=== PATIENT | male | born 1955 | race Caucasian/White ===

== ENCOUNTER 2016-08-10 12:20 | Inpatient (IN) | payer MEDICARE, MEDICAID ==
[~2016-08-10] VITALS: Ht 177.8 cm; Wt 93.0 kg
[~2016-08-10 12:20] MED LIST: CLON.2 PO; DULO20CA30 PO; METO25 PO; NALT50 PO; OLAN10TA22 PO; OLAN10TA6 PO; PHEN100C23 PO; PHENY100 PO
[2016-08-10] MEDS ORDERED: HALOPERIDOL LACTATE 5 MG/ML VIAL IM ONE ×2 (12:25→14:45)
[2016-08-10] MEDS ORDERED: DiphenhydrAMINE HCL 50 MG/ML VIAL IM ONE ×2 (12:25→17:45)
[2016-08-10] MEDS ORDERED: LORazepam 2 MG/ML VIAL IM ONE ×3 (12:25→17:45)
[2016-08-10] MEDS ORDERED: VENL-193 PO (12:28)
[2016-08-10] MEDS ORDERED: TRIH5TAB2 PO (12:28)
[2016-08-10] MEDS ORDERED: LEVO50 PO (12:28)
[2016-08-10] MEDS ORDERED: DIAZ10I IM (12:28)
[2016-08-10] MEDS ORDERED: CLON.2 PO (12:28)
[2016-08-10] MEDS ORDERED: DIAZ10 PO (12:54)
[2016-08-10 14:32] LABS: BASOPHILS % (AUTO) 0.3 % (0.0-2.0); EOSINOPHILS % (AUTO) 0.2 % (1.0-6.0); HEMATOCRIT 40.9 % (41-53); HEMOGLOBIN 13.2 g/dL (13.5-17.5); LYMPHOCYTES # (AUTO) 1.5 K/uL (1.0-4.8); LYMPHOCYTES % (AUTO) 10.6 % (22.0-44.0); MEAN CORPUSCULAR HEMOGLOBIN 28.8 pg (26.0-34.0); MEAN CORPUSCULAR HGB CONC 32.3 G/dL (31.0-37.0); MEAN CORPUSCULAR VOLUME 89 fL (80-100); MONOCYTES # (AUTO) 1.1 K/uL (0.1-1.0); MONOCYTES % (AUTO) 7.7 % (2.0-9.0); NEUTROPHILS # (AUTO) 11.5 K/uL (1.8-7.7); NEUTROPHILS % (AUTO) 81.2 % (40.0-70.0); PLATELET COUNT (AUTO) 214 K/uL (150-450); RED BLOOD CELL COUNT(AUTO) 4.58 MIL/uL (4.50-5.90); RED CELL DISTRIBUTION WIDTH 14.2 % (11.5-14.5); WHITE BLOOD COUNT (AUTO) 14.2 K/uL (4.5-11.0)
[2016-08-10 14:40] LABS: ANION GAP 10 mmol/L (8-16); CALCIUM, TOTAL 9.2 mg/dL (8.8-10.5); CARBON DIOXIDE 28 mmol/L (22-29); CHLORIDE 100 mmol/L (98-107); CREATININE 1.18 mg/dL (0.60-1.30); GLOMERULAR FILTR. RATE CALC > 60 mL/min (>60); SODIUM SERUM 138 mmol/L (136-145); UREA NITROGEN, BLOOD 14 mg/dL (7-18)
[2016-08-10 14:46] LABS: ALANINE AMINOTRANSFERASE 34 U/L (12-78); ALBUMIN 4.1 g/dL (3.4-5.0); ASPARTATE AMINOTRANSFERASE 15 U/L (15-37); BILIRUBIN,TOTAL 0.4 mg/dL (0.1-1.0); TOTAL PROTEIN, SERUM 7.7 g/dL (6.4-8.2)
[2016-08-10 15:20] LABS: APPEARANCE,URINE CLEAR (CLEAR); GLUCOSE, URINE (UA) NEGATIVE (NEGATIVE); KETONES,URINE NEGATIVE (NEGATIVE); LEUKOCYTE ESTERASE ,URINE NEGATIVE (NEGATIVE); OCCULT BLOOD,URINE TRACE (NEGATIVE); PROTEIN,URINE NEGATIVE (NEGATIVE)
[2016-08-10 15:25] LABS: ADD UA MICROSCOPIC YES
[2016-08-10 15:49] LABS: SQUAMOUS EPITHELIAL CELL,UR Rare /LPF (None Seen)
[2016-08-10 15:50] LABS: RBC,URINE 0-2 /HPF (0-2); WBC,URINE 0-2 /HPF (0-5)
[2016-08-10] MEDS ORDERED: LOPERAMIDE HCL 2 MG CAPSULE PO PRN (16:30)
[2016-08-10] MEDS ORDERED: PROMETHAZINE HCL 25 MG TABLET PO PRN (16:30)
[2016-08-10] MEDS ORDERED: MAG HYDROX/AL HYDROX/SIMETH ES 30 ML SUSPENSION UDCUP PO PRN (16:30)
[2016-08-10] MEDS ORDERED: MAGNESIUM HYDROXIDE SUSPENSION 30 ML UDCUP PO PRN (16:30)
[2016-08-10] MEDS ORDERED: GuaiFENesin/D-METHORPHAN [SUGAR-FREE] 200-20MG/10 ML SYRUP UDCUP PO PRN (16:30)
[2016-08-10] MEDS ORDERED: -PHARMACY VACCINE NOTE- MISC ONE ×2 (19:30)
[2016-08-10 19:36] VITALS: BP 118/65
[2016-08-10] MEDS: PHENYTOIN SODIUM 100 MG ER CAPSULE PO SCH (20:18)
[2016-08-10] MEDS: THIAMINE HCL 100 MG TABLET PO SCH (20:18)
[2016-08-10] MEDS: OLANZapine 5 MG RAPDIS TABLET PO SCH (20:18)
[2016-08-10 20:21] LABS: GLUCOSE,POINT OF CARE 180 MG/DL (70-110)
[2016-08-10] MEDS ORDERED: GLUCAGON,HUMAN RECOMBINANT 1 MG VIAL IM PRN (21:45)
[2016-08-11] MEDS: LORazepam 2 MG TABLET PO PRN ×3 (04:19→15:42)
[2016-08-11 04:20] VITALS: BP 129/71
[2016-08-11 06:12] LABS: GLUCOSE,POINT OF CARE 146 MG/DL (70-110)
[2016-08-11] MEDS: LEVOTHYROXINE SODIUM 50 MCG TABLET PO SCH (06:23)
[2016-08-11] MEDS: INSULIN ASPART 100 UNITS/ML SQ PRN ×3 (06:24→20:44)
[2016-08-11] MEDS: OLANZapine 5 MG RAPDIS TABLET PO PRN ×2 (06:37→16:19)
[2016-08-11] MEDS: FOLIC ACID 1 MG TABLET PO SCH (07:55)
[2016-08-11] MEDS: NALTREXONE HCL 50 MG TABLET PO SCH (07:55)
[2016-08-11] MEDS: THIAMINE HCL 100 MG TABLET PO SCH ×2 (07:55→16:19)
[2016-08-11] MEDS: METOPROLOL TARTRATE 25 MG TABLET PO SCH (07:55)
[2016-08-11] MEDS: MULTIVITAMINS WITH MINERALS, THERAPEUTIC TABLET PO SCH (07:55)
[2016-08-11] MEDS: CloNIDine HCL 0.1 MG TABLET PO SCH ×2 (07:57→16:19)
[2016-08-11 08:25] LABS: BASOPHILS % (AUTO) 0.4 % (0.0-2.0); EOSINOPHILS % (AUTO) 1.1 % (1.0-6.0); HEMOGLOBIN 13.2 g/dL (13.5-17.5); LYMPHOCYTES # (AUTO) 1.5 K/uL (1.0-4.8); LYMPHOCYTES % (AUTO) 18.5 % (22.0-44.0); MEAN CORPUSCULAR HEMOGLOBIN 28.8 pg (26.0-34.0); MEAN CORPUSCULAR HGB CONC 32.2 G/dL (31.0-37.0); MEAN CORPUSCULAR VOLUME 90 fL (80-100); MONOCYTES # (AUTO) 0.9 K/uL (0.1-1.0); MONOCYTES % (AUTO) 11.2 % (2.0-9.0); NEUTROPHILS # (AUTO) 5.7 K/uL (1.8-7.7); NEUTROPHILS % (AUTO) 68.8 % (40.0-70.0); PLATELET COUNT (AUTO) 187 K/uL (150-450); RED BLOOD CELL COUNT(AUTO) 4.58 MIL/uL (4.50-5.90); RED CELL DISTRIBUTION WIDTH 14.3 % (11.5-14.5); WHITE BLOOD COUNT (AUTO) 8.3 K/uL (4.5-11.0)
[2016-08-11 08:37] LABS: HEMOGLOBIN A1C 7.5 % (4.5-6.2)
[2016-08-11 08:46] VITALS: BP 122/76
[2016-08-11 09:43] LABS: ALANINE AMINOTRANSFERASE 31 U/L (12-78); ANION GAP 8 mmol/L (8-16); ASPARTATE AMINOTRANSFERASE 34 U/L (15-37); BILIRUBIN,TOTAL 0.8 mg/dL (0.1-1.0); CALCIUM, TOTAL 9.1 mg/dL (8.8-10.5); CARBON DIOXIDE 29 mmol/L (22-29); CHLORIDE 101 mmol/L (98-107); CREATININE 1.11 mg/dL (0.60-1.30); GLOMERULAR FILTR. RATE CALC > 60 mL/min (>60); POTASSIUM 3.7 mmol/L (3.5-5.1); SODIUM SERUM 138 mmol/L (136-145); THYROID STIMULATING HORMONE 0.01 uIU/mL (0.36-3.74)
[2016-08-11 09:59] LABS: CHOL/HDL RATIO 4.1 (4.2-7.3); TOTAL PROTEIN, SERUM 7.6 g/dL (6.4-8.2); UREA NITROGEN, BLOOD 12 mg/dL (7-18)
[2016-08-11] MEDS: HydrOXYzine PAMOATE 50 MG CAPSULE PO PRN ×2 (10:30→18:45)
[2016-08-11] MEDS ORDERED: DiphenhydrAMINE HCL 50 MG/ML VIAL ONE (11:41)
[2016-08-11] MEDS ORDERED: LORazepam 2 MG/ML VIAL ONE (11:41)
[2016-08-11] MEDS ORDERED: HALOPERIDOL LACTATE 5 MG/ML VIAL ONE (11:42)
[2016-08-11] MEDS ORDERED: FluPHENAZine HCL 2.5 MG/ML INJ IM ONE ×3 (11:43→11:48)
[2016-08-11] MEDS ORDERED: DiphenhydrAMINE HCL 50 MG/ML VIAL IM ONE (11:45)
[2016-08-11] MEDS ORDERED: LORazepam 2 MG/ML VIAL IM ONE (11:45)
[2016-08-11 16:18] VITALS: BP 125/70
[2016-08-11 17:57] LABS: GLUCOSE,POINT OF CARE 227 MG/DL (70-110)
[2016-08-11] MEDS: DIVALPROEX SODIUM 500 MG ER TABLET PO SCH (20:24)
[2016-08-11] MEDS: OLANZapine 5 MG RAPDIS TABLET PO SCH (20:24)
[2016-08-11] MEDS: PHENYTOIN SODIUM 100 MG ER CAPSULE PO SCH (20:24)
[2016-08-11 20:42] LABS: GLUCOSE,POINT OF CARE 162 MG/DL (70-110)
[2016-08-11] MEDS ORDERED: PHENYTOIN SODIUM 100 MG ER CAPSULE PO SCH (21:00)
[2016-08-11] MEDS: ZOLPIDEM TARTRATE 10 MG TABLET PO PRN (21:42)
[2016-08-12 00:20] VITALS: BP 126/75
[2016-08-12] MEDS: LORazepam 2 MG TABLET PO PRN ×4 (00:25→16:25)
[2016-08-12] MEDS: OLANZapine 5 MG RAPDIS TABLET PO PRN ×4 (00:25→16:26)
[2016-08-12] MEDS: LEVOTHYROXINE SODIUM 50 MCG TABLET PO SCH (06:49)
[2016-08-12] MEDS: INSULIN ASPART 100 UNITS/ML SQ PRN ×2 (06:52→16:30)
[2016-08-12 07:47] LABS: GLUCOSE,POINT OF CARE 165 MG/DL (70-110)
[2016-08-12 08:46] VITALS: BP 122/68
[2016-08-12] MEDS: CloNIDine HCL 0.1 MG TABLET PO SCH ×2 (09:47→16:25)
[2016-08-12] MEDS: MULTIVITAMINS WITH MINERALS, THERAPEUTIC TABLET PO SCH (09:48)
[2016-08-12] MEDS: THIAMINE HCL 100 MG TABLET PO SCH ×2 (09:48→16:25)
[2016-08-12] MEDS: FOLIC ACID 1 MG TABLET PO SCH (09:48)
[2016-08-12] MEDS: METOPROLOL TARTRATE 25 MG TABLET PO SCH (09:48)
[2016-08-12] MEDS: NALTREXONE HCL 50 MG TABLET PO SCH (09:48)
[2016-08-12] MEDS: NICOTINE 14 MG/24 HOUR PATCH TD SCH (10:32)
[2016-08-12] MEDS ORDERED: DiphenhydrAMINE HCL 50 MG/ML VIAL ONE (11:08)
[2016-08-12] MEDS ORDERED: LORazepam 2 MG/ML VIAL ONE (11:08)
[2016-08-12] MEDS ORDERED: FluPHENAZine HCL 2.5 MG/ML INJ IM ONE ×3 (11:09→13:00)
[2016-08-12] MEDS ORDERED: DiphenhydrAMINE HCL 50 MG/ML VIAL IM ONE ×2 (11:15→13:00)
[2016-08-12] MEDS ORDERED: LORazepam 2 MG/ML VIAL IM ONE ×2 (11:15→13:00)
[2016-08-12 16:00] VITALS: BP 136/71
[2016-08-12 17:17] LABS: GLUCOSE COMMENT 1 Received Meds; GLUCOSE,POINT OF CARE 159 MG/DL (70-110)
[2016-08-12] MEDS ORDERED: DIVA500T52 PO (18:02)
[2016-08-12] MEDS ORDERED: OLAN10TA22 PO (18:02)
[2016-08-12] MEDS ORDERED: NALT50 PO (18:02)
[2016-08-12] MEDS: DIVALPROEX SODIUM 500 MG ER TABLET PO SCH (20:20)
[2016-08-12] MEDS: ZOLPIDEM TARTRATE 10 MG TABLET PO PRN (20:20)
[2016-08-12] MEDS ORDERED: PHENYTOIN SODIUM 100 MG ER CAPSULE PO SCH (21:00)
[2016-08-12] MEDS ORDERED: OLANZapine 10 MG RAPDIS TABLET PO SCH (21:00)
[2016-08-13] MEDS ORDERED: LORazepam 2 MG/ML VIAL IM ONE ×2 (01:30→11:00)
[2016-08-13] MEDS ORDERED: DiphenhydrAMINE HCL 50 MG/ML VIAL IM ONE ×2 (01:30→11:00)
[2016-08-13] MEDS ORDERED: FluPHENAZine HCL 2.5 MG/ML INJ IM ONE ×3 (01:30→11:00)
[2016-08-13] MEDS: LEVOTHYROXINE SODIUM 50 MCG TABLET PO SCH (06:28)
[2016-08-13] MEDS: INSULIN ASPART 100 UNITS/ML SQ PRN (06:30)
[2016-08-13 06:32] LABS: GLUCOSE,POINT OF CARE 156 MG/DL (70-110)
[2016-08-13 06:34] VITALS: BP 144/86
[2016-08-13 08:41] VITALS: BP 131/71
[2016-08-13] MEDS: NICOTINE 14 MG/24 HOUR PATCH TD SCH (09:08)
[2016-08-13] MEDS: OLANZapine 5 MG RAPDIS TABLET PO PRN (09:08)
[2016-08-13] MEDS: NALTREXONE HCL 50 MG TABLET PO SCH (09:09)
[2016-08-13] MEDS: CloNIDine HCL 0.1 MG TABLET PO SCH ×2 (09:09→16:46)
[2016-08-13] MEDS: THIAMINE HCL 100 MG TABLET PO SCH ×2 (09:09→16:46)
[2016-08-13] MEDS: MULTIVITAMINS WITH MINERALS, THERAPEUTIC TABLET PO SCH (09:09)
[2016-08-13] MEDS: LORazepam 2 MG TABLET PO PRN (09:09)
[2016-08-13] MEDS: FOLIC ACID 1 MG TABLET PO SCH (09:10)
[2016-08-13] MEDS: METOPROLOL TARTRATE 25 MG TABLET PO SCH (09:13)
[2016-08-13] MEDS: HydrOXYzine PAMOATE 50 MG CAPSULE PO PRN (14:57)
[2016-08-13 16:00] VITALS: BP 125/72
[2016-08-13 16:57] LABS: GLUCOSE,POINT OF CARE 136 MG/DL (70-110)
[2016-08-13] MEDS: DIVALPROEX SODIUM 500 MG ER TABLET PO SCH (20:46)
[2016-08-13] MEDS: PHENYTOIN SODIUM 100 MG ER CAPSULE PO SCH (20:47)
[2016-08-13] MEDS: OLANZapine 5 MG RAPDIS TABLET PO SCH (20:48)
[2016-08-13] MEDS: ZOLPIDEM TARTRATE 10 MG TABLET PO PRN (21:06)
[2016-08-14 06:57] LABS: GLUCOSE,POINT OF CARE 135 MG/DL (70-110)
[2016-08-14] MEDS: OLANZapine 5 MG RAPDIS TABLET PO PRN ×2 (07:07→14:30)
[2016-08-14] MEDS: LORazepam 2 MG TABLET PO PRN ×2 (07:07→14:30)
[2016-08-14] MEDS: LEVOTHYROXINE SODIUM 50 MCG TABLET PO SCH (07:07)
[2016-08-14 07:38] VITALS: BP 122/78
[2016-08-14 08:11] VITALS: BP 140/83
[2016-08-14] MEDS: NICOTINE 14 MG/24 HOUR PATCH TD SCH (08:20)
[2016-08-14] MEDS: FOLIC ACID 1 MG TABLET PO SCH (08:20)
[2016-08-14] MEDS: CloNIDine HCL 0.1 MG TABLET PO SCH ×2 (08:20→17:01)
[2016-08-14] MEDS: MULTIVITAMINS WITH MINERALS, THERAPEUTIC TABLET PO SCH (08:20)
[2016-08-14] MEDS: METOPROLOL TARTRATE 25 MG TABLET PO SCH (08:21)
[2016-08-14] MEDS: THIAMINE HCL 100 MG TABLET PO SCH ×2 (08:21→17:01)
[2016-08-14] MEDS: NALTREXONE HCL 50 MG TABLET PO SCH ×2 (08:21→08:32)
[2016-08-14] MEDS: ACETAMINOPHEN 325 MG TABLET PO PRN ×2 (12:03→13:25)
[2016-08-14 16:09] VITALS: BP 115/66
[2016-08-14] MEDS: DIVALPROEX SODIUM 500 MG ER TABLET PO SCH (20:38)
[2016-08-14] MEDS: PHENYTOIN SODIUM 100 MG ER CAPSULE PO SCH (20:38)
[2016-08-14] MEDS: OLANZapine 5 MG RAPDIS TABLET PO SCH (20:38)
[2016-08-15 03:55] VITALS: BP 127/79
[2016-08-15] MEDS: LEVOTHYROXINE SODIUM 50 MCG TABLET PO SCH (06:34)
[2016-08-15 06:37] LABS: GLUCOSE,POINT OF CARE 115 MG/DL (70-110)
[2016-08-15 08:41] VITALS: BP 136/75
[2016-08-15] MEDS: FOLIC ACID 1 MG TABLET PO SCH (08:47)
[2016-08-15] MEDS: METOPROLOL TARTRATE 25 MG TABLET PO SCH (08:47)
[2016-08-15] MEDS: NALTREXONE HCL 50 MG TABLET PO SCH (08:48)
[2016-08-15] MEDS: LORazepam 2 MG TABLET PO PRN ×2 (08:48→14:53)
[2016-08-15] MEDS: MULTIVITAMINS WITH MINERALS, THERAPEUTIC TABLET PO SCH (08:48)
[2016-08-15] MEDS: CloNIDine HCL 0.1 MG TABLET PO SCH ×2 (08:48→16:03)
[2016-08-15] MEDS: THIAMINE HCL 100 MG TABLET PO SCH ×2 (08:49→16:03)
[2016-08-15] MEDS: NICOTINE 14 MG/24 HOUR PATCH TD SCH (08:49)
[2016-08-15] MEDS: NICOTINE 21 MG/24 HOUR PATCH TD SCH (09:48)
[2016-08-15 11:06] LABS: GLUCOSE,POINT OF CARE 146 MG/DL (70-110)
[2016-08-15] MEDS: INSULIN ASPART 100 UNITS/ML SQ PRN ×2 (11:13→16:19)
[2016-08-15 16:13] VITALS: BP 138/78
[2016-08-15 16:17] LABS: GLUCOSE COMMENT 1 Received Meds; GLUCOSE,POINT OF CARE 158 MG/DL (70-110)
[2016-08-15] MEDS: DIVALPROEX SODIUM 500 MG ER TABLET PO SCH (20:29)
[2016-08-15] MEDS: OLANZapine 5 MG RAPDIS TABLET PO SCH (20:29)
[2016-08-15] MEDS: PHENYTOIN SODIUM 100 MG ER CAPSULE PO SCH (20:35)
[2016-08-15] MEDS: ZOLPIDEM TARTRATE 10 MG TABLET PO PRN (21:30)
[2016-08-16] MEDS: LEVOTHYROXINE SODIUM 50 MCG TABLET PO SCH (06:11)
[2016-08-16 06:13] LABS: GLUCOSE,POINT OF CARE 99 MG/DL (70-110)
[2016-08-16 06:17] VITALS: BP 140/89
[2016-08-16] MEDS: NALTREXONE HCL 50 MG TABLET PO SCH (08:36)
[2016-08-16] MEDS: LORazepam 2 MG TABLET PO PRN ×2 (08:36→13:07)
[2016-08-16] MEDS: MULTIVITAMINS WITH MINERALS, THERAPEUTIC TABLET PO SCH (08:36)
[2016-08-16] MEDS: DIVALPROEX SODIUM 500 MG ER TABLET PO SCH (08:36)
[2016-08-16] MEDS: THIAMINE HCL 100 MG TABLET PO SCH ×2 (08:36→16:29)
[2016-08-16] MEDS: CloNIDine HCL 0.1 MG TABLET PO SCH ×2 (08:36→16:29)
[2016-08-16] MEDS: METOPROLOL TARTRATE 25 MG TABLET PO SCH (08:36)
[2016-08-16] MEDS: FOLIC ACID 1 MG TABLET PO SCH (08:36)
[2016-08-16] MEDS: NICOTINE 21 MG/24 HOUR PATCH TD SCH (08:37)
[2016-08-16 08:49] VITALS: BP 133/80
[2016-08-16] MEDS: HYDROCORTISONE 2.5% 30 GM CREAM TP SCH ×2 (10:39→16:29)
[2016-08-16 11:12] LABS: GLUCOSE,POINT OF CARE 143 MG/DL (70-110)
[2016-08-16] MEDS: INSULIN ASPART 100 UNITS/ML SQ PRN (11:14)
[2016-08-16] MEDS: OLANZapine 5 MG RAPDIS TABLET PO PRN (13:07)
[2016-08-16 16:17] LABS: GLUCOSE,POINT OF CARE 136 MG/DL (70-110)
[2016-08-16 16:33] VITALS: BP 137/75
[2016-08-16] MEDS: PHENYTOIN SODIUM 100 MG ER CAPSULE PO SCH (20:40)
[2016-08-16] MEDS: OLANZapine 5 MG RAPDIS TABLET PO SCH (20:40)
[2016-08-16 20:42] LABS: GLUCOSE,POINT OF CARE 135 MG/DL (70-110)
[2016-08-17 05:32] VITALS: BP 126/67
[2016-08-17 06:02] LABS: GLUCOSE,POINT OF CARE 139 MG/DL (70-110)
[2016-08-17] MEDS: LEVOTHYROXINE SODIUM 50 MCG TABLET PO SCH (06:05)
[2016-08-17] MEDS: NICOTINE 21 MG/24 HOUR PATCH TD SCH (08:27)
[2016-08-17] MEDS: THIAMINE HCL 100 MG TABLET PO SCH ×2 (08:27→16:41)
[2016-08-17] MEDS: FOLIC ACID 1 MG TABLET PO SCH (08:27)
[2016-08-17] MEDS: METOPROLOL TARTRATE 25 MG TABLET PO SCH (08:27)
[2016-08-17] MEDS: MULTIVITAMINS WITH MINERALS, THERAPEUTIC TABLET PO SCH (08:28)
[2016-08-17] MEDS: CloNIDine HCL 0.1 MG TABLET PO SCH ×2 (08:28→16:41)
[2016-08-17] MEDS: NALTREXONE HCL 50 MG TABLET PO SCH (08:28)
[2016-08-17] MEDS: LORazepam 2 MG TABLET PO PRN ×3 (08:28→18:51)
[2016-08-17 08:42] VITALS: BP 146/89
[2016-08-17] MEDS: HYDROCORTISONE 2.5% 30 GM CREAM TP SCH ×2 (08:56→16:41)
[2016-08-17] MEDS ORDERED: PHENY100 PO (15:19)
[2016-08-17 16:00] VITALS: BP 138/84
[2016-08-17] MEDS: OLANZapine 5 MG RAPDIS TABLET PO PRN (16:41)
[2016-08-17 16:57] LABS: GLUCOSE,POINT OF CARE 138 MG/DL (70-110)
[2016-08-17] MEDS ORDERED: OLANZapine 10 MG RAPDIS TABLET PO SCH (21:00)
[2016-08-17] MEDS: DIVALPROEX SODIUM 500 MG ER TABLET PO SCH (21:05)
[2016-08-17] MEDS: PHENYTOIN SODIUM 100 MG ER CAPSULE PO SCH (21:05)
[2016-08-17] MEDS: ZOLPIDEM TARTRATE 10 MG TABLET PO PRN (21:06)
[2016-08-18 06:01] VITALS: BP 150/85
[2016-08-18 06:13] LABS: GLUCOSE,POINT OF CARE 122 MG/DL (70-110)
[2016-08-18] MEDS: LEVOTHYROXINE SODIUM 50 MCG TABLET PO SCH (06:13)
[2016-08-18] MEDS: CloNIDine HCL 0.1 MG TABLET PO SCH (08:20)
[2016-08-18] MEDS: LORazepam 2 MG TABLET PO PRN (08:27)
[2016-08-18] MEDS: METOPROLOL TARTRATE 25 MG TABLET PO SCH (08:27)
[2016-08-18] MEDS: FOLIC ACID 1 MG TABLET PO SCH (08:27)
[2016-08-18] MEDS: MULTIVITAMINS WITH MINERALS, THERAPEUTIC TABLET PO SCH (08:27)
[2016-08-18] MEDS: NICOTINE 21 MG/24 HOUR PATCH TD SCH (08:28)
[2016-08-18] MEDS: NALTREXONE HCL 50 MG TABLET PO SCH (08:31)
[2016-08-18] MEDS: THIAMINE HCL 100 MG TABLET PO SCH (08:31)
[2016-08-18] MEDS: HYDROCORTISONE 2.5% 30 GM CREAM TP SCH (08:35)
[2016-08-18 09:33] VITALS: BP 157/83
== END 2016-08-18 12:00 | disposition home or self-care (01) | DRG 885 ==
LOC: EMS 12:23 → B3A 18:26
PROVIDERS: ADMIT Psychiatry & Neurology Psychiatry; ATTEND Psychiatry & Neurology Psychiatry
DX: F25.0 Schizoaffective disorder, bipolar type (principal); G93.41 Metabolic encephalopathy; F19.20 Other psychoactive substance dependence, uncomplicated; F17.200 Nicotine dependence, unspecified, uncomplicated; J44.9 Chronic obstructive pulmonary disease, unspecified; R56.9 Unspecified convulsions; I10 Essential (primary) hypertension; E78.5 Hyperlipidemia, unspecified; E11.9 Type 2 diabetes mellitus without complications; R10.13 Epigastric pain; Z88.6 Allergy status to analgesic agent; Z88.8 Allergy status to other drugs, medicaments and biological substances; Z91.14 Patient's other noncompliance with medication regimen; Z78.1 Physical restraint status
CPT/HCPCS: 82962; 83036; 84439; 84443; 86592; G0480; J1200; J1630; J2060; J3490

== ENCOUNTER 2016-12-12 14:57 | Emergency (ER) | payer MEDICARE, MEDICAID ==
[~2016-12-12] VITALS: Ht 172.7 cm; Wt 90.9 kg
[~2016-12-12 14:57] MED LIST changes: +BACTDSB PO; -CLON.2 PO; +DIVA500T69 PO; -DULO20CA30 PO; +MIRT15 PO; -NALT50 PO; +NICO-650 PO; -OLAN10TA22 PO; -OLAN10TA6 PO; +OLAN7.5T2 PO; -PHEN100C23 PO; +TRIH5TAB2 PO; +VENL37.570 PO
[2016-12-12 15:40] LABS: BASOPHILS % (AUTO) 0.2 % (0.0-2.0); EOSINOPHILS % (AUTO) 0.2 % (1.0-6.0); HEMATOCRIT 41.4 % (41-53); HEMOGLOBIN 14.1 g/dL (13.5-17.5); LYMPHOCYTES # (AUTO) 1.7 K/uL (1.0-4.8); LYMPHOCYTES % (AUTO) 13.3 % (22.0-44.0); MEAN CORPUSCULAR HEMOGLOBIN 30.5 pg (26.0-34.0); MEAN CORPUSCULAR HGB CONC 34.1 G/dL (31.0-37.0); MEAN CORPUSCULAR VOLUME 90 fL (80-100); MONOCYTES # (AUTO) 1.2 K/uL (0.1-1.0); MONOCYTES % (AUTO) 9.6 % (2.0-9.0); NEUTROPHILS # (AUTO) 9.8 K/uL (1.8-7.7); NEUTROPHILS % (AUTO) 76.7 % (40.0-70.0); PLATELET COUNT (AUTO) 235 K/uL (150-450); RED BLOOD CELL COUNT(AUTO) 4.63 MIL/uL (4.50-5.90); WHITE BLOOD COUNT (AUTO) 12.7 K/uL (4.5-11.0)
[2016-12-12] MEDS ORDERED: OLANZapine 5 MG TABLET PO ONE (15:45)
[2016-12-12 16:10] LABS: ALANINE AMINOTRANSFERASE 37 U/L (12-78); ALBUMIN 4.1 g/dL (3.4-5.0); ANION GAP 12 mmol/L (8-16); ASPARTATE AMINOTRANSFERASE 42 U/L (15-37); BILIRUBIN,TOTAL 0.2 mg/dL (0.1-1.0); CALCIUM, TOTAL 8.9 mg/dL (8.8-10.5); CARBON DIOXIDE 22 mmol/L (22-29); CHLORIDE 97 mmol/L (98-107); CREATININE 1.31 mg/dL (0.60-1.30); GLOMERULAR FILTR. RATE CALC 56 mL/min (>60); POTASSIUM 4.5 mmol/L (3.5-5.1); SODIUM SERUM 131 mmol/L (136-145); TOTAL PROTEIN, SERUM 8.3 g/dL (6.4-8.2); UREA NITROGEN, BLOOD 23 mg/dL (7-18)
[2016-12-12] MEDS ORDERED: SODIUM CHLORIDE 0.9% 2,000 ML IV ONE (16:45)
[2016-12-12] MEDS ORDERED: LORazepam 1 MG TABLET PO ONE (17:15)
[2016-12-12] MEDS ORDERED: LORazepam 2 MG/ML VIAL IVP ONE (17:45)
[2016-12-12 19:08] VITALS: BP 136/76
[2016-12-13 00:23] LABS: GLUCOSE,POINT OF CARE 272 MG/DL (70-110)
== END 2016-12-12 19:31 | disposition left against medical advice (07) ==
LOC: EMS 15:00
DX: F43.9 Reaction to severe stress, unspecified (principal); F41.9 Anxiety disorder, unspecified; E11.65 Type 2 diabetes mellitus with hyperglycemia; E78.00 Pure hypercholesterolemia, unspecified; I10 Essential (primary) hypertension; F20.9 Schizophrenia, unspecified; F17.210 Nicotine dependence, cigarettes, uncomplicated; Z86.73 Personal history of transient ischemic attack (TIA), and cerebral infarction without residual deficits; Z88.6 Allergy status to analgesic agent; Z88.8 Allergy status to other drugs, medicaments and biological substances
CPT/HCPCS: 36415; 80053; 82962; 84484; 85025; 93005; 96361; 96374; 99285; G0480; J2060; J7030

== ENCOUNTER 2016-12-13 16:14 | Inpatient (IN) | payer MEDICARE, MEDICAID ==
[~2016-12-13] VITALS: Ht 172.7 cm; Wt 98.6 kg
[~2016-12-13 16:14] MED LIST changes: -BACTDSB PO; -NICO-650 PO
[2016-12-13 20:32] VITALS: BP 153/86
[2016-12-13 20:50] VITALS: BP 138/75
[2016-12-13] MEDS: FLUTICASONE/VILANTEROL 100-25 MCG/INH INHALER [14] IH SCH (21:00)
[2016-12-13] MEDS ORDERED: INFLUENZA VIRUS VACCINE QVS 2017-18 (3YR+)/PF 60 MCG/0.5 ML SYRINGE IM ONE (22:15)
[2016-12-13] MEDS ORDERED: -PHARMACY VACCINE NOTE- MISC ONE ×2 (22:15)
[2016-12-13] MEDS: PHENYTOIN SODIUM 100 MG ER CAPSULE PO SCH (22:18)
[2016-12-13] MEDS: DIVALPROEX SODIUM 500 MG ER TABLET PO SCH (22:18)
[2016-12-13] MEDS: OLANZapine 7.5 MG TABLET PO SCH (22:18)
[2016-12-13] MEDS: MIRTAZAPINE 15 MG TABLET PO SCH (22:18)
[2016-12-13] MEDS ORDERED: GLUCAGON,HUMAN RECOMBINANT 1 MG VIAL IM PRN (22:30)
[2016-12-13] MEDS ORDERED: INSULIN ASPART 100 UNITS/ML SQ PRN (22:30)
[2016-12-14 01:03] LABS: GLUCOSE,POINT OF CARE 251 MG/DL (70-110)
[2016-12-14 01:04] VITALS: BP 127/84
[2016-12-14 06:22] LABS: GLUCOSE,POINT OF CARE 177 MG/DL (70-110)
[2016-12-14] MEDS: ALBUTEROL SULFATE HFA 90 MCG/PUFF 8 GM INHALER IH PRN ×2 (06:48→16:00)
[2016-12-14] MEDS: INSULIN ASPART 100 UNITS/ML SQ PRN ×3 (07:05→21:01)
[2016-12-14 07:46] LABS: BASOPHILS % (AUTO) 0.3 % (0.0-2.0); EOSINOPHILS % (AUTO) 1.8 % (1.0-6.0); HEMATOCRIT 41.7 % (41-53); HEMOGLOBIN 14.1 g/dL (13.5-17.5); LYMPHOCYTES # (AUTO) 2.7 K/uL (1.0-4.8); LYMPHOCYTES % (AUTO) 21.6 % (22.0-44.0); MEAN CORPUSCULAR HEMOGLOBIN 30.3 pg (26.0-34.0); MEAN CORPUSCULAR HGB CONC 33.7 G/dL (31.0-37.0); MEAN CORPUSCULAR VOLUME 90 fL (80-100); MONOCYTES # (AUTO) 1.1 K/uL (0.1-1.0); MONOCYTES % (AUTO) 8.7 % (2.0-9.0); NEUTROPHILS # (AUTO) 8.5 K/uL (1.8-7.7); NEUTROPHILS % (AUTO) 67.6 % (40.0-70.0); PLATELET COUNT (AUTO) 240 K/uL (150-450); RED BLOOD CELL COUNT(AUTO) 4.64 MIL/uL (4.50-5.90); RED CELL DISTRIBUTION WIDTH 15.4 % (11.5-14.5); WHITE BLOOD COUNT (AUTO) 12.5 K/uL (4.5-11.0)
[2016-12-14 07:54] LABS: HEMOGLOBIN A1C 7.6 % (4.5-6.2)
[2016-12-14] MEDS: VENLAFAXINE HCL 75 MG ER CAPSULE PO SCH (08:03)
[2016-12-14] MEDS: TRIHEXYPHENIDYL HCL 5 MG TABLET PO SCH ×2 (08:03→16:50)
[2016-12-14] MEDS: LORazepam 2 MG TABLET PO PRN ×2 (08:03→16:00)
[2016-12-14] MEDS: NICOTINE 14 MG/24 HOUR PATCH TD SCH (08:05)
[2016-12-14 08:13] LABS: CHOL/HDL RATIO 4.4 (4.2-7.3); THYROID STIMULATING HORMONE 1.87 uIU/mL (0.36-3.74)
[2016-12-14 08:41] VITALS: BP 116/81
[2016-12-14 09:09] LABS: APPEARANCE,URINE CLEAR (CLEAR); GLUCOSE, URINE (UA) 250 mg/dL (NEGATIVE); KETONES,URINE NEGATIVE (NEGATIVE); LEUKOCYTE ESTERASE ,URINE NEGATIVE (NEGATIVE); OCCULT BLOOD,URINE NEGATIVE (NEGATIVE); PROTEIN,URINE NEGATIVE (NEGATIVE)
[2016-12-14 09:26] LABS: ADD UA MICROSCOPIC YES
[2016-12-14 09:27] LABS: RBC,URINE 0-2 /HPF (0-2); WBC,URINE None Seen /HPF (0-5)
[2016-12-14 11:27] LABS: GLUCOSE,POINT OF CARE 174 MG/DL (70-110)
[2016-12-14] MEDS ORDERED: ACETAMINOPHEN 325 MG TABLET PO PRN (12:30)
[2016-12-14 16:27] VITALS: BP 131/75
[2016-12-14 16:42] LABS: GLUCOSE,POINT OF CARE 194 MG/DL (70-110)
[2016-12-14] MEDS: MetFORMIN HCL 500 MG TABLET PO SCH (16:50)
[2016-12-14] MEDS: MIRTAZAPINE 15 MG TABLET PO SCH (20:43)
[2016-12-14] MEDS: PHENYTOIN SODIUM 100 MG ER CAPSULE PO SCH (20:43)
[2016-12-14] MEDS: DIVALPROEX SODIUM 500 MG ER TABLET PO SCH (20:43)
[2016-12-14] MEDS: FLUTICASONE/VILANTEROL 100-25 MCG/INH INHALER [14] IH SCH (20:44)
[2016-12-14] MEDS: OLANZapine 7.5 MG TABLET PO SCH (20:44)
[2016-12-14 20:58] LABS: GLUCOSE,POINT OF CARE 168 MG/DL (70-110)
[2016-12-14] MEDS ORDERED: PHENYTOIN SODIUM 100 MG ER CAPSULE PO SCH (21:00)
[2016-12-15] MEDS: ALBUTEROL SULFATE HFA 90 MCG/PUFF 8 GM INHALER IH PRN ×3 (03:25→17:33)
[2016-12-15 06:22] LABS: GLUCOSE,POINT OF CARE 156 MG/DL (70-110)
[2016-12-15 06:54] VITALS: BP 140/84
[2016-12-15] MEDS: MetFORMIN HCL 500 MG TABLET PO SCH ×2 (07:00→16:07)
[2016-12-15] MEDS: INSULIN ASPART 100 UNITS/ML SQ PRN ×3 (07:01→20:35)
[2016-12-15] MEDS: TRIHEXYPHENIDYL HCL 5 MG TABLET PO SCH ×2 (08:04→16:07)
[2016-12-15] MEDS: VENLAFAXINE HCL 75 MG ER CAPSULE PO SCH (08:05)
[2016-12-15] MEDS: METOPROLOL TARTRATE 25 MG TABLET PO SCH (08:05)
[2016-12-15] MEDS: NICOTINE 14 MG/24 HOUR PATCH TD SCH (08:06)
[2016-12-15] MEDS: LORazepam 2 MG TABLET PO PRN ×2 (08:06→16:08)
[2016-12-15 08:11] VITALS: BP 154/89
[2016-12-15 08:16] LABS: ALANINE AMINOTRANSFERASE 39 U/L (12-78); ALBUMIN 3.4 g/dL (3.4-5.0); ANION GAP 7 mmol/L (8-16); ASPARTATE AMINOTRANSFERASE 30 U/L (15-37); BILIRUBIN,TOTAL 0.4 mg/dL (0.1-1.0); CALCIUM, TOTAL 8.5 mg/dL (8.8-10.5); CARBON DIOXIDE 29 mmol/L (22-29); CHLORIDE 102 mmol/L (98-107); CREATININE 0.81 mg/dL (0.60-1.30); GLOMERULAR FILTR. RATE CALC > 60 mL/min (>60); POTASSIUM 4.3 mmol/L (3.5-5.1); SODIUM SERUM 138 mmol/L (136-145); THYROID STIMULATING HORMONE 0.73 uIU/mL (0.36-3.74); TOTAL PROTEIN, SERUM 6.7 g/dL (6.4-8.2); UREA NITROGEN, BLOOD 11 mg/dL (7-18)
[2016-12-15 09:15] VITALS: BP 136/72
[2016-12-15 11:38] LABS: GLUCOSE,POINT OF CARE 117 MG/DL (70-110)
[2016-12-15 16:44] VITALS: BP 130/64
[2016-12-15] MEDS ORDERED: PHENYTOIN SODIUM 100 MG ER CAPSULE PO ONE (17:15)
[2016-12-15 17:18] LABS: GLUCOSE,POINT OF CARE 187 MG/DL (70-110)
[2016-12-15] MEDS ORDERED: VENL-67 PO (17:27)
[2016-12-15] MEDS: OLANZapine 7.5 MG TABLET PO SCH (20:31)
[2016-12-15] MEDS: DIVALPROEX SODIUM 500 MG ER TABLET PO SCH (20:31)
[2016-12-15] MEDS: MIRTAZAPINE 15 MG TABLET PO SCH (20:31)
[2016-12-15] MEDS: PHENYTOIN SODIUM 100 MG ER CAPSULE PO SCH (20:32)
[2016-12-15] MEDS: FLUTICASONE/VILANTEROL 100-25 MCG/INH INHALER [14] IH SCH (21:37)
[2016-12-15 21:48] LABS: GLUCOSE,POINT OF CARE 159 MG/DL (70-110)
[2016-12-16 06:28] LABS: GLUCOSE,POINT OF CARE 167 MG/DL (70-110)
[2016-12-16] MEDS: INSULIN ASPART 100 UNITS/ML SQ PRN ×4 (06:39→20:46)
[2016-12-16] MEDS: MetFORMIN HCL 500 MG TABLET PO SCH ×2 (06:39→16:36)
[2016-12-16 06:48] VITALS: BP 137/90
[2016-12-16 08:09] VITALS: BP 127/82
[2016-12-16] MEDS: METOPROLOL TARTRATE 25 MG TABLET PO SCH (08:14)
[2016-12-16] MEDS: VENLAFAXINE HCL 75 MG ER CAPSULE PO SCH (08:14)
[2016-12-16] MEDS: TRIHEXYPHENIDYL HCL 5 MG TABLET PO SCH ×2 (08:14→16:36)
[2016-12-16] MEDS: NICOTINE 14 MG/24 HOUR PATCH TD SCH (08:14)
[2016-12-16] MEDS: LORazepam 2 MG TABLET PO PRN ×2 (08:15→16:36)
[2016-12-16] MEDS: ALBUTEROL SULFATE HFA 90 MCG/PUFF 8 GM INHALER IH PRN (09:58)
[2016-12-16 13:20] LABS: GLUCOSE,POINT OF CARE 178 MG/DL (70-110)
[2016-12-16 16:13] VITALS: BP 113/63
[2016-12-16] MEDS: FLUTICASONE/VILANTEROL 100-25 MCG/INH INHALER [14] IH SCH (20:33)
[2016-12-16] MEDS: MIRTAZAPINE 15 MG TABLET PO SCH (20:34)
[2016-12-16] MEDS: PHENYTOIN SODIUM 100 MG ER CAPSULE PO SCH (20:34)
[2016-12-16] MEDS: DIVALPROEX SODIUM 500 MG ER TABLET PO SCH (20:34)
[2016-12-16] MEDS: OLANZapine 7.5 MG TABLET PO SCH (20:34)
[2016-12-17 06:09] VITALS: BP 134/94
[2016-12-17] MEDS: MetFORMIN HCL 500 MG TABLET PO SCH ×2 (06:50→16:38)
[2016-12-17] MEDS: INSULIN ASPART 100 UNITS/ML SQ PRN ×4 (06:51→20:49)
[2016-12-17 08:46] VITALS: BP 123/65
[2016-12-17 08:59] LABS: GLUCOSE,POINT OF CARE 159 MG/DL (70-110)
[2016-12-17] MEDS: TRIHEXYPHENIDYL HCL 5 MG TABLET PO SCH ×2 (08:59→16:38)
[2016-12-17] MEDS: VENLAFAXINE HCL 150 MG ER CAPSULE PO SCH (08:59)
[2016-12-17] MEDS: METOPROLOL TARTRATE 25 MG TABLET PO SCH (08:59)
[2016-12-17] MEDS: NICOTINE 14 MG/24 HOUR PATCH TD SCH (09:00)
[2016-12-17] MEDS: LORazepam 2 MG TABLET PO PRN ×2 (09:01→16:02)
[2016-12-17 09:05] LABS: GLUCOSE,POINT OF CARE 162 MG/DL (70-110)
[2016-12-17 09:11] LABS: GLUCOSE,POINT OF CARE 161 MG/DL (70-110)
[2016-12-17 11:14] LABS: GLUCOSE,POINT OF CARE 142 MG/DL (70-110)
[2016-12-17 16:25] VITALS: BP 140/86
[2016-12-17 16:27] LABS: GLUCOSE,POINT OF CARE 174 MG/DL (70-110)
[2016-12-17] MEDS: OLANZapine 5 MG RAPDIS TABLET PO PRN (18:06)
[2016-12-17 20:22] LABS: GLUCOSE,POINT OF CARE 198 MG/DL (70-110)
[2016-12-17] MEDS: DIVALPROEX SODIUM 500 MG ER TABLET PO SCH (20:32)
[2016-12-17] MEDS: OLANZapine 7.5 MG TABLET PO SCH (20:32)
[2016-12-17] MEDS: FLUTICASONE/VILANTEROL 100-25 MCG/INH INHALER [14] IH SCH (20:32)
[2016-12-17] MEDS: PHENYTOIN SODIUM 100 MG ER CAPSULE PO SCH (20:32)
[2016-12-17] MEDS: MIRTAZAPINE 15 MG TABLET PO SCH (20:32)
[2016-12-17] MEDS: ZOLPIDEM TARTRATE 10 MG TABLET PO PRN (21:21)
[2016-12-18 00:24] VITALS: BP 136/70
[2016-12-18 06:27] LABS: GLUCOSE,POINT OF CARE 138 MG/DL (70-110)
[2016-12-18] MEDS: MetFORMIN HCL 500 MG TABLET PO SCH ×2 (06:37→17:09)
[2016-12-18 08:24] VITALS: BP 129/76
[2016-12-18] MEDS: TRIHEXYPHENIDYL HCL 5 MG TABLET PO SCH ×2 (08:25→17:09)
[2016-12-18] MEDS: VENLAFAXINE HCL 150 MG ER CAPSULE PO SCH (08:25)
[2016-12-18] MEDS: NICOTINE 14 MG/24 HOUR PATCH TD SCH (08:25)
[2016-12-18] MEDS: METOPROLOL TARTRATE 25 MG TABLET PO SCH (08:25)
[2016-12-18] MEDS: LORazepam 2 MG TABLET PO PRN (08:29)
[2016-12-18] MEDS: OLANZapine 5 MG RAPDIS TABLET PO PRN (10:32)
[2016-12-18] MEDS: INSULIN ASPART 100 UNITS/ML SQ PRN ×2 (11:24→16:56)
[2016-12-18 11:53] LABS: GLUCOSE,POINT OF CARE 144 MG/DL (70-110)
[2016-12-18 16:19] VITALS: BP 124/78
[2016-12-18 17:02] LABS: GLUCOSE,POINT OF CARE 150 MG/DL (70-110)
[2016-12-18] MEDS: DIVALPROEX SODIUM 500 MG ER TABLET PO SCH (20:25)
[2016-12-18] MEDS: MIRTAZAPINE 15 MG TABLET PO SCH (20:25)
[2016-12-18] MEDS: PHENYTOIN SODIUM 100 MG ER CAPSULE PO SCH (20:25)
[2016-12-18] MEDS: FLUTICASONE/VILANTEROL 100-25 MCG/INH INHALER [14] IH SCH (20:25)
[2016-12-18] MEDS: OLANZapine 7.5 MG TABLET PO SCH (20:25)
[2016-12-18 20:52] LABS: GLUCOSE,POINT OF CARE 116 MG/DL (70-110)
[2016-12-18] MEDS: ZOLPIDEM TARTRATE 10 MG TABLET PO PRN (21:00)
[2016-12-19 03:20] VITALS: BP 121/78
[2016-12-19] MEDS: INSULIN ASPART 100 UNITS/ML SQ PRN (06:12)
[2016-12-19 06:17] LABS: GLUCOSE,POINT OF CARE 141 MG/DL (70-110)
[2016-12-19] MEDS: MetFORMIN HCL 500 MG TABLET PO SCH ×2 (07:03→16:41)
[2016-12-19] MEDS: NICOTINE 14 MG/24 HOUR PATCH TD SCH (08:03)
[2016-12-19] MEDS: METOPROLOL TARTRATE 25 MG TABLET PO SCH (08:03)
[2016-12-19] MEDS: TRIHEXYPHENIDYL HCL 5 MG TABLET PO SCH ×2 (08:03→16:41)
[2016-12-19] MEDS: LORazepam 2 MG TABLET PO PRN ×2 (08:03→13:08)
[2016-12-19] MEDS: VENLAFAXINE HCL 150 MG ER CAPSULE PO SCH (08:03)
[2016-12-19 08:38] VITALS: BP 125/77
[2016-12-19 11:21] LABS: GLUCOSE,POINT OF CARE 131 MG/DL (70-110)
[2016-12-19 16:28] VITALS: BP 109/65
[2016-12-19 16:38] LABS: GLUCOSE,POINT OF CARE 104 MG/DL (70-110)
[2016-12-19 20:22] LABS: GLUCOSE,POINT OF CARE 130 MG/DL (70-110)
[2016-12-19] MEDS: DIVALPROEX SODIUM 500 MG ER TABLET PO SCH (20:35)
[2016-12-19] MEDS: MIRTAZAPINE 15 MG TABLET PO SCH (20:35)
[2016-12-19] MEDS: OLANZapine 7.5 MG TABLET PO SCH (20:35)
[2016-12-19] MEDS: PHENYTOIN SODIUM 100 MG ER CAPSULE PO SCH (20:35)
[2016-12-19] MEDS: FLUTICASONE/VILANTEROL 100-25 MCG/INH INHALER [14] IH SCH (20:36)
[2016-12-20 05:24] VITALS: BP 124/79
[2016-12-20 06:32] LABS: GLUCOSE,POINT OF CARE 141 MG/DL (70-110)
[2016-12-20] MEDS: MetFORMIN HCL 500 MG TABLET PO SCH ×2 (06:33→16:37)
[2016-12-20] MEDS: INSULIN ASPART 100 UNITS/ML SQ PRN (06:38)
[2016-12-20] MEDS: TRIHEXYPHENIDYL HCL 5 MG TABLET PO SCH ×2 (08:11→16:37)
[2016-12-20] MEDS: VENLAFAXINE HCL 150 MG ER CAPSULE PO SCH (08:11)
[2016-12-20] MEDS: METOPROLOL TARTRATE 25 MG TABLET PO SCH (08:11)
[2016-12-20] MEDS: NICOTINE 14 MG/24 HOUR PATCH TD SCH (08:14)
[2016-12-20 08:20] VITALS: BP 124/80
[2016-12-20] MEDS: LORazepam 2 MG TABLET PO PRN ×2 (08:25→16:19)
[2016-12-20 12:03] LABS: GLUCOSE,POINT OF CARE 130 MG/DL (70-110)
[2016-12-20 16:16] VITALS: BP 140/84
[2016-12-20 16:22] LABS: GLUCOSE,POINT OF CARE 119 MG/DL (70-110)
[2016-12-20] MEDS: PHENYTOIN SODIUM 100 MG ER CAPSULE PO SCH (20:32)
[2016-12-20] MEDS: DIVALPROEX SODIUM 500 MG ER TABLET PO SCH (20:32)
[2016-12-20] MEDS: MIRTAZAPINE 15 MG TABLET PO SCH (20:32)
[2016-12-20] MEDS: FLUTICASONE/VILANTEROL 100-25 MCG/INH INHALER [14] IH SCH (20:32)
[2016-12-20] MEDS: OLANZapine 7.5 MG TABLET PO SCH (20:32)
[2016-12-20 20:38] LABS: GLUCOSE,POINT OF CARE 138 MG/DL (70-110)
[2016-12-20] MEDS: ZOLPIDEM TARTRATE 10 MG TABLET PO PRN (21:39)
[2016-12-21 05:45] VITALS: BP 122/78
[2016-12-21 06:37] LABS: GLUCOSE,POINT OF CARE 129 MG/DL (70-110)
[2016-12-21] MEDS: MetFORMIN HCL 500 MG TABLET PO SCH ×2 (07:05→16:58)
[2016-12-21] MEDS: VENLAFAXINE HCL 150 MG ER CAPSULE PO SCH (08:17)
[2016-12-21] MEDS: TRIHEXYPHENIDYL HCL 5 MG TABLET PO SCH ×2 (08:17→16:58)
[2016-12-21] MEDS: METOPROLOL TARTRATE 25 MG TABLET PO SCH (08:17)
[2016-12-21] MEDS: LORazepam 2 MG TABLET PO PRN ×2 (08:17→15:18)
[2016-12-21] MEDS: NICOTINE 14 MG/24 HOUR PATCH TD SCH (08:17)
[2016-12-21 08:29] VITALS: BP 138/79
[2016-12-21 11:39] LABS: GLUCOSE,POINT OF CARE 120 MG/DL (70-110)
[2016-12-21] MEDS: ALBUTEROL SULFATE HFA 90 MCG/PUFF 8 GM INHALER IH PRN (15:18)
[2016-12-21 16:10] VITALS: BP 134/76
[2016-12-21 16:53] LABS: GLUCOSE,POINT OF CARE 119 MG/DL (70-110)
[2016-12-21] MEDS: DIVALPROEX SODIUM 500 MG ER TABLET PO SCH (20:32)
[2016-12-21] MEDS: PHENYTOIN SODIUM 100 MG ER CAPSULE PO SCH (20:32)
[2016-12-21] MEDS: MIRTAZAPINE 15 MG TABLET PO SCH (20:32)
[2016-12-21] MEDS: FLUTICASONE/VILANTEROL 100-25 MCG/INH INHALER [14] IH SCH (20:32)
[2016-12-21] MEDS: OLANZapine 7.5 MG TABLET PO SCH (20:32)
[2016-12-21 21:32] LABS: GLUCOSE,POINT OF CARE 128 MG/DL (70-110)
[2016-12-22 00:34] VITALS: BP 138/76
[2016-12-22 06:53] LABS: GLUCOSE,POINT OF CARE 149 MG/DL (70-110)
[2016-12-22] MEDS: INSULIN ASPART 100 UNITS/ML SQ PRN (06:53)
[2016-12-22] MEDS: MetFORMIN HCL 500 MG TABLET PO SCH ×2 (07:13→16:49)
[2016-12-22] MEDS: TRIHEXYPHENIDYL HCL 5 MG TABLET PO SCH ×2 (08:23→16:49)
[2016-12-22] MEDS: VENLAFAXINE HCL 150 MG ER CAPSULE PO SCH (08:23)
[2016-12-22] MEDS: METOPROLOL TARTRATE 25 MG TABLET PO SCH (08:23)
[2016-12-22] MEDS: NICOTINE 14 MG/24 HOUR PATCH TD SCH (08:24)
[2016-12-22] MEDS: LORazepam 2 MG TABLET PO PRN ×2 (08:24→16:09)
[2016-12-22 08:32] VITALS: BP 153/81
[2016-12-22] MEDS: OLANZapine 5 MG RAPDIS TABLET PO PRN (08:42)
[2016-12-22 10:00] VITALS: BP 121/78
[2016-12-22 11:43] LABS: GLUCOSE,POINT OF CARE 105 MG/DL (70-110)
[2016-12-22 16:13] VITALS: BP 126/79
[2016-12-22 16:44] LABS: GLUCOSE,POINT OF CARE 120 MG/DL (70-110)
[2016-12-22] MEDS: DOXYCYCLINE 100 MG CAPSULE PO SCH (17:04)
[2016-12-22] MEDS: FLUTICASONE/VILANTEROL 100-25 MCG/INH INHALER [14] IH SCH (20:56)
[2016-12-22] MEDS: DIVALPROEX SODIUM 500 MG ER TABLET PO SCH (20:56)
[2016-12-22] MEDS: PHENYTOIN SODIUM 100 MG ER CAPSULE PO SCH (20:56)
[2016-12-22] MEDS: MIRTAZAPINE 15 MG TABLET PO SCH (20:56)
[2016-12-22] MEDS: OLANZapine 7.5 MG TABLET PO SCH (20:56)
[2016-12-22 20:58] LABS: GLUCOSE,POINT OF CARE 114 MG/DL (70-110)
[2016-12-22] MEDS: ZOLPIDEM TARTRATE 10 MG TABLET PO PRN (21:29)
[2016-12-22] MEDS: NEOMYCIN/BACITRACIN/POLYMYXIN B 30 GM OINTMENT TP SCH (21:29)
[2016-12-23 00:09] VITALS: BP 112/77
[2016-12-23 06:18] LABS: GLUCOSE,POINT OF CARE 131 MG/DL (70-110)
[2016-12-23] MEDS: MetFORMIN HCL 500 MG TABLET PO SCH ×2 (06:47→17:14)
[2016-12-23] MEDS: TRIHEXYPHENIDYL HCL 5 MG TABLET PO SCH ×2 (08:04→17:14)
[2016-12-23] MEDS: VENLAFAXINE HCL 150 MG ER CAPSULE PO SCH (08:04)
[2016-12-23] MEDS: METOPROLOL TARTRATE 25 MG TABLET PO SCH (08:04)
[2016-12-23] MEDS: DOXYCYCLINE 100 MG CAPSULE PO SCH ×2 (08:04→17:14)
[2016-12-23] MEDS: NICOTINE 14 MG/24 HOUR PATCH TD SCH (08:05)
[2016-12-23] MEDS: OLANZapine 5 MG RAPDIS TABLET PO PRN (08:07)
[2016-12-23] MEDS: NEOMYCIN/BACITRACIN/POLYMYXIN B 30 GM OINTMENT TP SCH ×2 (08:07→17:15)
[2016-12-23 08:28] VITALS: BP 124/79
[2016-12-23] MEDS: LORazepam 2 MG TABLET PO PRN ×2 (09:33→14:55)
[2016-12-23 11:12] LABS: GLUCOSE,POINT OF CARE 114 MG/DL (70-110)
[2016-12-23] MEDS ORDERED: METF500T4 PO (15:55)
[2016-12-23] MEDS ORDERED: DOXY100C PO (15:55)
[2016-12-23] MEDS ORDERED: NEOM1OIN8 TP (15:57)
[2016-12-23] MEDS ORDERED: FLUT1AER IH (15:57)
[2016-12-23 16:15] VITALS: BP 139/85
[2016-12-23 17:48] LABS: GLUCOSE,POINT OF CARE 108 MG/DL (70-110)
== END 2016-12-23 19:10 | disposition home or self-care (01) | DRG 885 ==
LOC: B2X 19:00 → EDSTATUS 20:23
PROC: 3E0234Z Introduction of Serum, Toxoid and Vaccine into Muscle, Percutaneous Approach (ICD-10-PCS; principal; 2016-12-14)
DX: F25.0 Schizoaffective disorder, bipolar type (principal); R45.851 Suicidal ideations; E11.9 Type 2 diabetes mellitus without complications; E03.9 Hypothyroidism, unspecified; E66.3 Overweight; L03.90 Cellulitis, unspecified; I10 Essential (primary) hypertension; E78.5 Hyperlipidemia, unspecified; J44.9 Chronic obstructive pulmonary disease, unspecified; G40.909 Epilepsy, unspecified, not intractable, without status epilepticus; F60.9 Personality disorder, unspecified; F19.10 Other psychoactive substance abuse, uncomplicated; R23.8 Other skin changes; K21.9 Gastro-esophageal reflux disease without esophagitis; Z88.5 Allergy status to narcotic agent; Z88.8 Allergy status to other drugs, medicaments and biological substances; Z71.51 Drug abuse counseling and surveillance of drug abuser; Z23 Encounter for immunization
CPT/HCPCS: 82962; 83036; 84439; 84443; 87081; 90471; J3535

== ENCOUNTER 2017-01-03 18:26 | Inpatient (IN) | payer MEDICARE, MEDICAID ==
[~2017-01-03] VITALS: Ht 172.7 cm; Wt 97.5 kg
[~2017-01-03 18:26] MED LIST changes: +DOXY100C PO; +FLUT1AER IH; +METF500T4 PO; +NEOM1OIN8 TP; +VENL-67 PO; -VENL37.570 PO
[2017-01-03 19:04] LABS: BASOPHILS % (AUTO) 0.3 % (0.0-2.0); HEMATOCRIT 37.8 % (41-53); HEMOGLOBIN 12.9 g/dL (13.5-17.5); LYMPHOCYTES # (AUTO) 1.9 K/uL (1.0-4.8); LYMPHOCYTES % (AUTO) 22.2 % (22.0-44.0); MEAN CORPUSCULAR HEMOGLOBIN 30.8 pg (26.0-34.0); MEAN CORPUSCULAR HGB CONC 34.1 G/dL (31.0-37.0); MEAN CORPUSCULAR VOLUME 90 fL (80-100); MONOCYTES # (AUTO) 0.8 K/uL (0.1-1.0); NEUTROPHILS # (AUTO) 5.5 K/uL (1.8-7.7); NEUTROPHILS % (AUTO) 65.5 % (40.0-70.0); PLATELET COUNT (AUTO) 256 K/uL (150-450); RED BLOOD CELL COUNT(AUTO) 4.18 MIL/uL (4.50-5.90); RED CELL DISTRIBUTION WIDTH 15.2 % (11.5-14.5); WHITE BLOOD COUNT (AUTO) 8.5 K/uL (4.5-11.0)
[2017-01-03 19:12] LABS: GLUCOSE,POINT OF CARE 170 MG/DL (70-110)
[2017-01-03 19:13] LABS: ANION GAP 10 mmol/L (8-16); CALCIUM, TOTAL 8.4 mg/dL (8.8-10.5); CARBON DIOXIDE 26 mmol/L (22-29); CHLORIDE 102 mmol/L (98-107); CREATININE 0.89 mg/dL (0.60-1.30); GLOMERULAR FILTR. RATE CALC > 60 mL/min (>60); SODIUM SERUM 138 mmol/L (136-145); UREA NITROGEN, BLOOD 15 mg/dL (7-18)
[2017-01-03 19:19] LABS: ALANINE AMINOTRANSFERASE 30 U/L (12-78); ALBUMIN 3.6 g/dL (3.4-5.0); ASPARTATE AMINOTRANSFERASE 14 U/L (15-37); BILIRUBIN,TOTAL 0.2 mg/dL (0.1-1.0); TOTAL PROTEIN, SERUM 6.9 g/dL (6.4-8.2); VALPROIC ACID 3 mcg/mL (50-100)
[2017-01-03] MEDS ORDERED: VENL-68 PO (20:09)
[2017-01-03] MEDS ORDERED: LORazepam 2 MG TABLET PO PRN (20:15)
[2017-01-03] MEDS ORDERED: ZOLPIDEM TARTRATE 10 MG TABLET PO PRN (20:15)
[2017-01-03] MEDS ORDERED: OLANZapine 5 MG RAPDIS TABLET PO PRN (20:15)
[2017-01-03 22:12] VITALS: BP 135/74
[2017-01-03 22:27] LABS: GLUCOSE,POINT OF CARE 144 MG/DL (70-110)
[2017-01-03] MEDS ORDERED: GLUCAGON,HUMAN RECOMBINANT 1 MG VIAL IM PRN (23:00)
[2017-01-04] MEDS: ALBUTEROL SULFATE HFA 90 MCG/PUFF 8 GM INHALER IH PRN (05:23)
[2017-01-04 06:00] VITALS: BP 140/65
[2017-01-04 06:17] LABS: GLUCOSE,POINT OF CARE 136 MG/DL (70-110)
[2017-01-04] MEDS: MetFORMIN HCL 500 MG TABLET PO SCH ×2 (06:32→16:44)
[2017-01-04] MEDS ORDERED: ACETAMINOPHEN 325 MG TABLET PO PRN (07:30)
[2017-01-04 07:53] LABS: BASOPHILS # (AUTO) 0.02 K/uL (0.00-0.20); BASOPHILS % (AUTO) 0.4 % (0.0-2.0); EOSINOPHILS # (AUTO) 0.21 K/uL (0.00-0.70); EOSINOPHILS % (AUTO) 3.36 % (1.0-6.0); HEMATOCRIT 37.8 % (41-53); HEMOGLOBIN 12.8 g/dL (13.5-17.5); LYMPHOCYTES # (AUTO) 1.7 K/uL (1.0-4.8); LYMPHOCYTES % (AUTO) 26.8 % (22.0-44.0); MEAN CORPUSCULAR HEMOGLOBIN 30.2 pg (26.0-34.0); MEAN CORPUSCULAR VOLUME 89 fL (80-100); MONOCYTES # (AUTO) 0.6 K/uL (0.1-1.0); MONOCYTES % (AUTO) 9.3 % (2.0-9.0); NEUTROPHILS # (AUTO) 3.8 K/uL (1.8-7.7); NEUTROPHILS % (AUTO) 60.1 % (40.0-70.0); PLATELET COUNT (AUTO) 213 K/uL (150-450); RED BLOOD CELL COUNT(AUTO) 4.25 MIL/uL (4.50-5.90); RED CELL DISTRIBUTION WIDTH 14.9 % (11.5-14.5); WHITE BLOOD COUNT (AUTO) 6.2 K/uL (4.5-11.0)
[2017-01-04 08:02] LABS: HEMOGLOBIN A1C 7.6 % (4.5-6.2)
[2017-01-04 08:21] VITALS: BP 125/74
[2017-01-04] MEDS: NICOTINE 21 MG/24 HOUR PATCH TD SCH (08:25)
[2017-01-04] MEDS: METOPROLOL TARTRATE 25 MG TABLET PO SCH (08:25)
[2017-01-04] MEDS: LORazepam 2 MG TABLET PO PRN ×3 (08:25→22:33)
[2017-01-04 08:37] LABS: ALANINE AMINOTRANSFERASE 30 U/L (12-78); ALBUMIN 3.5 g/dL (3.4-5.0); ANION GAP 9 mmol/L (8-16); ASPARTATE AMINOTRANSFERASE 16 U/L (15-37); BILIRUBIN,TOTAL 0.2 mg/dL (0.1-1.0); CALCIUM, TOTAL 8.4 mg/dL (8.8-10.5); CARBON DIOXIDE 27 mmol/L (22-29); CHLORIDE 104 mmol/L (98-107); CHOL/HDL RATIO 5.6 (4.2-7.3); CREATININE 0.75 mg/dL (0.60-1.30); GLOMERULAR FILTR. RATE CALC > 60 mL/min (>60); SODIUM SERUM 140 mmol/L (136-145); TOTAL PROTEIN, SERUM 6.7 g/dL (6.4-8.2); UREA NITROGEN, BLOOD 12 mg/dL (7-18)
[2017-01-04] MEDS: TRIHEXYPHENIDYL HCL 5 MG TABLET PO SCH ×2 (10:37→16:44)
[2017-01-04] MEDS: VENLAFAXINE HCL 150 MG ER CAPSULE PO SCH (10:38)
[2017-01-04 11:38] LABS: GLUCOSE,POINT OF CARE 114 MG/DL (70-110)
[2017-01-04 16:06] VITALS: BP 115/71
[2017-01-04] MEDS: INSULIN ASPART 100 UNITS/ML SQ PRN (16:14)
[2017-01-04 16:17] LABS: GLUCOSE,POINT OF CARE 234 MG/DL (70-110)
[2017-01-04] MEDS: FLUTICASONE/VILANTEROL 100-25 MCG/INH INHALER [14] IH SCH (20:26)
[2017-01-04] MEDS: PHENYTOIN SODIUM 100 MG ER CAPSULE PO SCH (20:27)
[2017-01-04] MEDS: OLANZapine 7.5 MG TABLET PO SCH (20:27)
[2017-01-04] MEDS: DIVALPROEX SODIUM 500 MG ER TABLET PO SCH (20:27)
[2017-01-04 20:47] LABS: GLUCOSE,POINT OF CARE 128 MG/DL (70-110)
[2017-01-04] MEDS: ZOLPIDEM TARTRATE 10 MG TABLET PO PRN (21:00)
[2017-01-04] MEDS: NORTRIPTYLINE HCL 25 MG CAPSULE PO SCH (21:00)
[2017-01-05 01:22] VITALS: BP 133/80
[2017-01-05] MEDS: LORazepam 2 MG TABLET PO PRN ×2 (06:50→14:37)
[2017-01-05] MEDS: MetFORMIN HCL 500 MG TABLET PO SCH ×2 (06:52→16:47)
[2017-01-05 06:59] VITALS: BP 128/87
[2017-01-05] MEDS ORDERED: MetFORMIN HCL 500 MG TABLET PO SCH (07:00)
[2017-01-05] MEDS: OLANZapine 5 MG RAPDIS TABLET PO PRN (07:27)
[2017-01-05 07:47] LABS: GLUCOSE,POINT OF CARE 139 MG/DL (70-110)
[2017-01-05 08:03] VITALS: BP 123/82
[2017-01-05] MEDS: METOPROLOL TARTRATE 25 MG TABLET PO SCH (08:15)
[2017-01-05] MEDS: VENLAFAXINE HCL 150 MG ER CAPSULE PO SCH (08:15)
[2017-01-05] MEDS: TRIHEXYPHENIDYL HCL 5 MG TABLET PO SCH ×2 (08:15→16:47)
[2017-01-05] MEDS: NICOTINE 21 MG/24 HOUR PATCH TD SCH (08:15)
[2017-01-05 08:29] LABS: BASOPHILS % (AUTO) 0.6 % (0.0-2.0); EOSINOPHILS % (AUTO) 4.2 % (1.0-6.0); HEMATOCRIT 40.5 % (41-53); HEMOGLOBIN 13.6 g/dL (13.5-17.5); LYMPHOCYTES # (AUTO) 2.4 K/uL (1.0-4.8); MEAN CORPUSCULAR HEMOGLOBIN 30.4 pg (26.0-34.0); MEAN CORPUSCULAR HGB CONC 33.5 G/dL (31.0-37.0); MEAN CORPUSCULAR VOLUME 91 fL (80-100); MONOCYTES # (AUTO) 0.6 K/uL (0.1-1.0); MONOCYTES % (AUTO) 8.3 % (2.0-9.0); NEUTROPHILS # (AUTO) 4.1 K/uL (1.8-7.7); NEUTROPHILS % (AUTO) 54.9 % (40.0-70.0); PLATELET COUNT (AUTO) 246 K/uL (150-450); RED BLOOD CELL COUNT(AUTO) 4.47 MIL/uL (4.50-5.90); RED CELL DISTRIBUTION WIDTH 14.8 % (11.5-14.5); WHITE BLOOD COUNT (AUTO) 7.4 K/uL (4.5-11.0)
[2017-01-05 08:46] LABS: HEMOGLOBIN A1C 7.5 % (4.5-6.2)
[2017-01-05 08:49] LABS: ALANINE AMINOTRANSFERASE 29 U/L (12-78); ALBUMIN 3.8 g/dL (3.4-5.0); ANION GAP 8 mmol/L (8-16); ASPARTATE AMINOTRANSFERASE 18 U/L (15-37); BILIRUBIN,TOTAL 0.2 mg/dL (0.1-1.0); CALCIUM, TOTAL 8.7 mg/dL (8.8-10.5); CARBON DIOXIDE 28 mmol/L (22-29); CHLORIDE 102 mmol/L (98-107); CHOL/HDL RATIO 5.3 (4.2-7.3); CREATININE 0.69 mg/dL (0.60-1.30); GLOMERULAR FILTR. RATE CALC > 60 mL/min (>60); POTASSIUM 4.3 mmol/L (3.5-5.1); SODIUM SERUM 138 mmol/L (136-145); THYROID STIMULATING HORMONE 1.03 uIU/mL (0.36-3.74); TOTAL PROTEIN, SERUM 6.7 g/dL (6.4-8.2); UREA NITROGEN, BLOOD 14 mg/dL (7-18)
[2017-01-05] MEDS ORDERED: METOPROLOL TARTRATE 25 MG TABLET PO SCH (09:00)
[2017-01-05] MEDS: ALBUTEROL SULFATE HFA 90 MCG/PUFF 8 GM INHALER IH PRN (09:07)
[2017-01-05] MEDS: GuaiFENesin [SUGAR-FREE] 200 MG/10 ML SOLUTION UDCUP PO PRN (09:13)
[2017-01-05 11:37] LABS: GLUCOSE,POINT OF CARE 102 MG/DL (70-110)
[2017-01-05 16:39] VITALS: BP 112/69
[2017-01-05 17:07] LABS: GLUCOSE,POINT OF CARE 99 MG/DL (70-110)
[2017-01-05 20:16] LABS: GLUCOSE,POINT OF CARE 158 MG/DL (70-110)
[2017-01-05] MEDS: NORTRIPTYLINE HCL 25 MG CAPSULE PO SCH (20:16)
[2017-01-05] MEDS: DIVALPROEX SODIUM 500 MG ER TABLET PO SCH (20:16)
[2017-01-05] MEDS: FLUTICASONE/VILANTEROL 100-25 MCG/INH INHALER [14] IH SCH (20:16)
[2017-01-05] MEDS: OLANZapine 7.5 MG TABLET PO SCH (20:16)
[2017-01-05] MEDS: INSULIN ASPART 100 UNITS/ML SQ PRN (20:17)
[2017-01-05] MEDS: PHENYTOIN SODIUM 100 MG ER CAPSULE PO SCH (20:19)
[2017-01-05] MEDS ORDERED: PHENYTOIN SODIUM 100 MG ER CAPSULE PO SCH (21:00)
[2017-01-05] MEDS ORDERED: FLUTICASONE/VILANTEROL 100-25 MCG/INH INHALER [14] IH SCH (21:00)
[2017-01-05] MEDS: ZOLPIDEM TARTRATE 10 MG TABLET PO PRN (21:22)
[2017-01-06 06:16] VITALS: BP 140/90
[2017-01-06] MEDS: MetFORMIN HCL 500 MG TABLET PO SCH ×2 (06:39→16:35)
[2017-01-06 06:57] LABS: GLUCOSE,POINT OF CARE 163 MG/DL (70-110)
[2017-01-06] MEDS: INSULIN ASPART 100 UNITS/ML SQ PRN ×2 (06:59→20:46)
[2017-01-06] MEDS: NICOTINE 21 MG/24 HOUR PATCH TD SCH (08:05)
[2017-01-06] MEDS: METOPROLOL TARTRATE 25 MG TABLET PO SCH (08:05)
[2017-01-06] MEDS: TRIHEXYPHENIDYL HCL 5 MG TABLET PO SCH ×2 (08:05→16:34)
[2017-01-06] MEDS: VENLAFAXINE HCL 150 MG ER CAPSULE PO SCH (08:05)
[2017-01-06] MEDS: LORazepam 2 MG TABLET PO PRN ×2 (08:06→14:50)
[2017-01-06 08:32] VITALS: BP 148/80
[2017-01-06] MEDS: OLANZapine 5 MG RAPDIS TABLET PO PRN ×2 (08:37→16:11)
[2017-01-06 11:07] LABS: GLUCOSE,POINT OF CARE 101 MG/DL (70-110)
[2017-01-06 16:22] VITALS: BP 133/78
[2017-01-06 16:28] LABS: GLUCOSE,POINT OF CARE 125 MG/DL (70-110)
[2017-01-06] MEDS: GuaiFENesin [SUGAR-FREE] 200 MG/10 ML SOLUTION UDCUP PO PRN (19:42)
[2017-01-06 20:27] LABS: GLUCOSE,POINT OF CARE 143 MG/DL (70-110)
[2017-01-06] MEDS: NORTRIPTYLINE HCL 25 MG CAPSULE PO SCH (20:33)
[2017-01-06] MEDS: OLANZapine 7.5 MG TABLET PO SCH (20:33)
[2017-01-06] MEDS: PHENYTOIN SODIUM 100 MG ER CAPSULE PO SCH (20:34)
[2017-01-06] MEDS: DIVALPROEX SODIUM 500 MG ER TABLET PO SCH (20:34)
[2017-01-06] MEDS: FLUTICASONE/VILANTEROL 100-25 MCG/INH INHALER [14] IH SCH (20:34)
[2017-01-07 03:00] VITALS: BP 149/88
[2017-01-07] MEDS: LORazepam 2 MG TABLET PO PRN ×3 (03:01→21:28)
[2017-01-07] MEDS: ZOLPIDEM TARTRATE 10 MG TABLET PO PRN (03:01)
[2017-01-07] MEDS: MetFORMIN HCL 500 MG TABLET PO SCH ×2 (06:32→16:36)
[2017-01-07] MEDS: INSULIN ASPART 100 UNITS/ML SQ PRN (06:45)
[2017-01-07 06:48] LABS: GLUCOSE,POINT OF CARE 160 MG/DL (70-110)
[2017-01-07] MEDS: GuaiFENesin [SUGAR-FREE] 200 MG/10 ML SOLUTION UDCUP PO PRN ×2 (07:26→18:53)
[2017-01-07 08:15] VITALS: BP 110/71
[2017-01-07] MEDS: METOPROLOL TARTRATE 25 MG TABLET PO SCH (08:18)
[2017-01-07] MEDS: TRIHEXYPHENIDYL HCL 5 MG TABLET PO SCH ×2 (08:18→16:36)
[2017-01-07] MEDS: VENLAFAXINE HCL 75 MG ER CAPSULE PO SCH (08:18)
[2017-01-07] MEDS: NICOTINE 21 MG/24 HOUR PATCH TD SCH (08:19)
[2017-01-07] MEDS: OLANZapine 5 MG RAPDIS TABLET PO PRN (09:55)
[2017-01-07 11:22] LABS: GLUCOSE,POINT OF CARE 122 MG/DL (70-110)
[2017-01-07 16:06] VITALS: BP 116/63
[2017-01-07 16:17] LABS: GLUCOSE,POINT OF CARE 114 MG/DL (70-110)
[2017-01-07 20:27] LABS: GLUCOSE,POINT OF CARE 124 MG/DL (70-110)
[2017-01-07] MEDS: FLUTICASONE/VILANTEROL 100-25 MCG/INH INHALER [14] IH SCH (20:34)
[2017-01-07] MEDS: DIVALPROEX SODIUM 500 MG ER TABLET PO SCH (20:35)
[2017-01-07] MEDS: NORTRIPTYLINE HCL 25 MG CAPSULE PO SCH (20:35)
[2017-01-07] MEDS: OLANZapine 7.5 MG TABLET PO SCH (20:35)
[2017-01-07] MEDS: PHENYTOIN SODIUM 100 MG ER CAPSULE PO SCH (20:36)
[2017-01-08 02:28] VITALS: BP 122/66
[2017-01-08] MEDS: MetFORMIN HCL 500 MG TABLET PO SCH ×2 (06:34→16:32)
[2017-01-08] MEDS: INSULIN ASPART 100 UNITS/ML SQ PRN (06:36)
[2017-01-08 06:37] LABS: GLUCOSE,POINT OF CARE 145 MG/DL (70-110)
[2017-01-08] MEDS: LORazepam 2 MG TABLET PO PRN ×2 (07:08→15:51)
[2017-01-08] MEDS: OLANZapine 5 MG RAPDIS TABLET PO PRN (07:08)
[2017-01-08] MEDS: METOPROLOL TARTRATE 25 MG TABLET PO SCH (08:09)
[2017-01-08] MEDS: VENLAFAXINE HCL 75 MG ER CAPSULE PO SCH (08:09)
[2017-01-08] MEDS: TRIHEXYPHENIDYL HCL 5 MG TABLET PO SCH ×2 (08:09→16:32)
[2017-01-08] MEDS: NICOTINE 21 MG/24 HOUR PATCH TD SCH (08:10)
[2017-01-08 08:40] VITALS: BP 130/78
[2017-01-08 11:17] LABS: GLUCOSE,POINT OF CARE 123 MG/DL (70-110)
[2017-01-08] MEDS: GuaiFENesin [SUGAR-FREE] 200 MG/10 ML SOLUTION UDCUP PO PRN ×2 (12:54→19:57)
[2017-01-08 16:10] VITALS: BP 135/75
[2017-01-08 16:27] LABS: GLUCOSE,POINT OF CARE 121 MG/DL (70-110)
[2017-01-08] MEDS: OLANZapine 7.5 MG TABLET PO SCH (20:39)
[2017-01-08] MEDS: DIVALPROEX SODIUM 500 MG ER TABLET PO SCH (20:39)
[2017-01-08] MEDS: FLUTICASONE/VILANTEROL 100-25 MCG/INH INHALER [14] IH SCH (20:39)
[2017-01-08] MEDS: NORTRIPTYLINE HCL 25 MG CAPSULE PO SCH (20:39)
[2017-01-08] MEDS: PHENYTOIN SODIUM 100 MG ER CAPSULE PO SCH (20:39)
[2017-01-08 20:43] LABS: GLUCOSE,POINT OF CARE 120 MG/DL (70-110)
[2017-01-09 05:49] VITALS: BP 110/72
[2017-01-09] MEDS: OLANZapine 5 MG RAPDIS TABLET PO PRN ×2 (05:52→14:54)
[2017-01-09 06:22] LABS: GLUCOSE,POINT OF CARE 143 MG/DL (70-110)
[2017-01-09] MEDS: MetFORMIN HCL 500 MG TABLET PO SCH ×2 (06:51→16:43)
[2017-01-09] MEDS: INSULIN ASPART 100 UNITS/ML SQ PRN ×2 (07:02→20:15)
[2017-01-09] MEDS: METOPROLOL TARTRATE 25 MG TABLET PO SCH (08:18)
[2017-01-09] MEDS: TRIHEXYPHENIDYL HCL 5 MG TABLET PO SCH ×2 (08:18→16:43)
[2017-01-09] MEDS: VENLAFAXINE HCL 75 MG ER CAPSULE PO SCH (08:18)
[2017-01-09] MEDS: NICOTINE 21 MG/24 HOUR PATCH TD SCH (08:19)
[2017-01-09] MEDS: LORazepam 2 MG TABLET PO PRN ×2 (08:19→14:41)
[2017-01-09 08:22] VITALS: BP 120/79
[2017-01-09 11:27] LABS: GLUCOSE,POINT OF CARE 124 MG/DL (70-110)
[2017-01-09] MEDS: ALBUTEROL SULFATE HFA 90 MCG/PUFF 8 GM INHALER IH PRN (12:17)
[2017-01-09 16:04] VITALS: BP 127/77
[2017-01-09 16:49] LABS: GLUCOSE,POINT OF CARE 136 MG/DL (70-110)
[2017-01-09] MEDS: DIVALPROEX SODIUM 500 MG ER TABLET PO SCH (20:09)
[2017-01-09] MEDS: OLANZapine 7.5 MG TABLET PO SCH (20:09)
[2017-01-09] MEDS: NORTRIPTYLINE HCL 25 MG CAPSULE PO SCH (20:09)
[2017-01-09] MEDS: PHENYTOIN SODIUM 100 MG ER CAPSULE PO SCH (20:09)
[2017-01-09] MEDS: FLUTICASONE/VILANTEROL 100-25 MCG/INH INHALER [14] IH SCH (20:10)
[2017-01-09 21:18] LABS: GLUCOSE,POINT OF CARE 164 MG/DL (70-110)
[2017-01-10 05:17] VITALS: BP 117/77
[2017-01-10] MEDS: OLANZapine 5 MG RAPDIS TABLET PO PRN (05:22)
[2017-01-10] MEDS: LORazepam 2 MG TABLET PO PRN ×2 (06:18→11:44)
[2017-01-10 06:19] LABS: GLUCOSE,POINT OF CARE 140 MG/DL (70-110)
[2017-01-10] MEDS: MetFORMIN HCL 500 MG TABLET PO SCH ×2 (06:44→16:22)
[2017-01-10 08:08] VITALS: BP 114/69
[2017-01-10] MEDS: METOPROLOL TARTRATE 25 MG TABLET PO SCH (08:15)
[2017-01-10] MEDS: TRIHEXYPHENIDYL HCL 5 MG TABLET PO SCH ×2 (08:15→16:22)
[2017-01-10] MEDS: VENLAFAXINE HCL 75 MG ER CAPSULE PO SCH (08:15)
[2017-01-10] MEDS: NICOTINE 21 MG/24 HOUR PATCH TD SCH (08:16)
[2017-01-10 11:48] LABS: GLUCOSE,POINT OF CARE 109 MG/DL (70-110)
[2017-01-10 16:29] LABS: GLUCOSE COMMENT 1 Received Meds; GLUCOSE,POINT OF CARE 146 MG/DL (70-110)
[2017-01-10 16:30] VITALS: BP 114/66
[2017-01-10] MEDS: INSULIN ASPART 100 UNITS/ML SQ PRN (16:39)
[2017-01-10 20:19] LABS: GLUCOSE,POINT OF CARE 128 MG/DL (70-110)
[2017-01-10] MEDS: PHENYTOIN SODIUM 100 MG ER CAPSULE PO SCH (20:24)
[2017-01-10] MEDS: NORTRIPTYLINE HCL 25 MG CAPSULE PO SCH (20:25)
[2017-01-10] MEDS: DIVALPROEX SODIUM 500 MG ER TABLET PO SCH (20:25)
[2017-01-10] MEDS: OLANZapine 7.5 MG TABLET PO SCH (20:25)
[2017-01-10] MEDS: FLUTICASONE/VILANTEROL 100-25 MCG/INH INHALER [14] IH SCH (20:46)
[2017-01-10] MEDS: ZOLPIDEM TARTRATE 10 MG TABLET PO PRN (21:25)
[2017-01-11 04:31] VITALS: BP 122/74
[2017-01-11] MEDS: OLANZapine 5 MG RAPDIS TABLET PO PRN ×2 (04:33→14:13)
[2017-01-11] MEDS: LORazepam 2 MG TABLET PO PRN ×2 (05:16→12:49)
[2017-01-11] MEDS: MetFORMIN HCL 500 MG TABLET PO SCH ×2 (06:33→16:43)
[2017-01-11 06:56] LABS: GLUCOSE,POINT OF CARE 128 MG/DL (70-110)
[2017-01-11] MEDS: METOPROLOL TARTRATE 25 MG TABLET PO SCH (08:20)
[2017-01-11] MEDS: VENLAFAXINE HCL 75 MG ER CAPSULE PO SCH (08:20)
[2017-01-11] MEDS: TRIHEXYPHENIDYL HCL 5 MG TABLET PO SCH ×2 (08:20→16:43)
[2017-01-11 08:21] VITALS: BP 126/81
[2017-01-11] MEDS: NICOTINE 21 MG/24 HOUR PATCH TD SCH (08:21)
[2017-01-11] MEDS: DIVALPROEX SODIUM 500 MG DR TABLET PO SCH ×2 (09:19→21:01)
[2017-01-11 11:34] LABS: GLUCOSE,POINT OF CARE 89 MG/DL (70-110)
[2017-01-11 16:01] VITALS: BP 125/89
[2017-01-11 16:37] LABS: GLUCOSE,POINT OF CARE 153 MG/DL (70-110)
[2017-01-11] MEDS: INSULIN ASPART 100 UNITS/ML SQ PRN (16:47)
[2017-01-11 20:17] LABS: GLUCOSE,POINT OF CARE 106 MG/DL (70-110)
[2017-01-11] MEDS: PHENYTOIN SODIUM 100 MG ER CAPSULE PO SCH (21:00)
[2017-01-11] MEDS: NORTRIPTYLINE HCL 25 MG CAPSULE PO SCH (21:00)
[2017-01-11] MEDS: OLANZapine 7.5 MG TABLET PO SCH (21:01)
[2017-01-11] MEDS: FLUTICASONE/VILANTEROL 100-25 MCG/INH INHALER [14] IH SCH (21:13)
[2017-01-12 06:16] VITALS: BP 119/77
[2017-01-12 06:22] LABS: GLUCOSE,POINT OF CARE 121 MG/DL (70-110)
[2017-01-12] MEDS: OLANZapine 5 MG RAPDIS TABLET PO PRN (06:23)
[2017-01-12] MEDS: MetFORMIN HCL 500 MG TABLET PO SCH ×2 (06:44→17:06)
[2017-01-12] MEDS: LORazepam 2 MG TABLET PO PRN ×2 (06:54→13:09)
[2017-01-12 08:08] VITALS: BP 146/82
[2017-01-12] MEDS: METOPROLOL TARTRATE 25 MG TABLET PO SCH (08:13)
[2017-01-12] MEDS: TRIHEXYPHENIDYL HCL 5 MG TABLET PO SCH ×2 (08:13→17:06)
[2017-01-12] MEDS: DIVALPROEX SODIUM 500 MG DR TABLET PO SCH ×2 (08:13→20:04)
[2017-01-12] MEDS: VENLAFAXINE HCL 75 MG ER CAPSULE PO SCH (08:13)
[2017-01-12] MEDS: NICOTINE 21 MG/24 HOUR PATCH TD SCH (08:13)
[2017-01-12 09:44] LABS: APPEARANCE,URINE CLEAR (CLEAR); GLUCOSE, URINE (UA) NEGATIVE (NEGATIVE); KETONES,URINE NEGATIVE (NEGATIVE); LEUKOCYTE ESTERASE ,URINE NEGATIVE (NEGATIVE); OCCULT BLOOD,URINE NEGATIVE (NEGATIVE); PROTEIN,URINE NEGATIVE (NEGATIVE)
[2017-01-12 09:51] LABS: ADD UA MICROSCOPIC NO
[2017-01-12 11:07] LABS: GLUCOSE,POINT OF CARE 98 MG/DL (70-110)
[2017-01-12 16:05] VITALS: BP 132/77
[2017-01-12 16:42] LABS: GLUCOSE,POINT OF CARE 111 MG/DL (70-110)
[2017-01-12] MEDS: NORTRIPTYLINE HCL 25 MG CAPSULE PO SCH (20:04)
[2017-01-12] MEDS: OLANZapine 7.5 MG TABLET PO SCH (20:04)
[2017-01-12] MEDS: PHENYTOIN SODIUM 100 MG ER CAPSULE PO SCH (20:04)
[2017-01-12] MEDS: FLUTICASONE/VILANTEROL 100-25 MCG/INH INHALER [14] IH SCH (20:06)
[2017-01-12] MEDS: ZOLPIDEM TARTRATE 10 MG TABLET PO PRN (21:23)
[2017-01-13 00:11] LABS: GLUCOSE,POINT OF CARE 114 MG/DL (70-110)
[2017-01-13] MEDS: MetFORMIN HCL 500 MG TABLET PO SCH ×3 (05:40→16:41)
[2017-01-13 05:43] VITALS: BP 116/73
[2017-01-13 06:02] LABS: GLUCOSE,POINT OF CARE 96 MG/DL (70-110)
[2017-01-13] MEDS: OLANZapine 5 MG RAPDIS TABLET PO PRN ×2 (07:25→12:04)
[2017-01-13 08:02] VITALS: BP 140/79
[2017-01-13] MEDS: TRIHEXYPHENIDYL HCL 5 MG TABLET PO SCH ×2 (08:17→16:41)
[2017-01-13] MEDS: DIVALPROEX SODIUM 500 MG DR TABLET PO SCH ×2 (08:18→20:33)
[2017-01-13] MEDS: NICOTINE 21 MG/24 HOUR PATCH TD SCH (08:18)
[2017-01-13] MEDS: METOPROLOL TARTRATE 25 MG TABLET PO SCH (08:18)
[2017-01-13] MEDS: VENLAFAXINE HCL 75 MG ER CAPSULE PO SCH (08:18)
[2017-01-13 11:17] LABS: GLUCOSE,POINT OF CARE 79 MG/DL (70-110)
[2017-01-13 16:54] VITALS: BP 116/60
[2017-01-13 17:02] LABS: GLUCOSE,POINT OF CARE 114 MG/DL (70-110)
[2017-01-13] MEDS: FLUTICASONE/VILANTEROL 100-25 MCG/INH INHALER [14] IH SCH (20:32)
[2017-01-13] MEDS: NORTRIPTYLINE HCL 25 MG CAPSULE PO SCH (20:32)
[2017-01-13 20:33] LABS: GLUCOSE,POINT OF CARE 92 MG/DL (70-110)
[2017-01-13] MEDS: OLANZapine 7.5 MG TABLET PO SCH (20:33)
[2017-01-13] MEDS: PHENYTOIN SODIUM 100 MG ER CAPSULE PO SCH (20:33)
[2017-01-14 06:18] LABS: GLUCOSE,POINT OF CARE 121 MG/DL (70-110)
[2017-01-14 06:32] VITALS: BP 106/76
[2017-01-14] MEDS: MetFORMIN HCL 500 MG TABLET PO SCH ×2 (07:02→16:59)
[2017-01-14] MEDS: METOPROLOL TARTRATE 25 MG TABLET PO SCH (08:14)
[2017-01-14] MEDS: DIVALPROEX SODIUM 500 MG DR TABLET PO SCH ×2 (08:14→20:34)
[2017-01-14] MEDS: VENLAFAXINE HCL 75 MG ER CAPSULE PO SCH (08:14)
[2017-01-14] MEDS: TRIHEXYPHENIDYL HCL 5 MG TABLET PO SCH ×2 (08:14→16:59)
[2017-01-14 08:15] VITALS: BP 113/69
[2017-01-14] MEDS: OLANZapine 5 MG RAPDIS TABLET PO PRN ×2 (08:16→14:46)
[2017-01-14] MEDS: NICOTINE 21 MG/24 HOUR PATCH TD SCH (08:16)
[2017-01-14] MEDS: LORazepam 2 MG TABLET PO PRN ×2 (09:36→16:35)
[2017-01-14 16:10] VITALS: BP 121/69
[2017-01-14 16:18] LABS: GLUCOSE,POINT OF CARE 88 MG/DL (70-110)
[2017-01-14 16:32] LABS: GLUCOSE,POINT OF CARE 91 MG/DL (70-110)
[2017-01-14 20:28] LABS: GLUCOSE,POINT OF CARE 147 MG/DL (70-110)
[2017-01-14] MEDS: PHENYTOIN SODIUM 100 MG ER CAPSULE PO SCH (20:34)
[2017-01-14] MEDS: OLANZapine 7.5 MG TABLET PO SCH (20:34)
[2017-01-14] MEDS: NORTRIPTYLINE HCL 25 MG CAPSULE PO SCH (20:34)
[2017-01-14] MEDS: FLUTICASONE/VILANTEROL 100-25 MCG/INH INHALER [14] IH SCH (20:35)
[2017-01-14] MEDS: INSULIN ASPART 100 UNITS/ML SQ PRN (20:57)
[2017-01-15 06:36] VITALS: BP 134/86
[2017-01-15 06:40] LABS: GLUCOSE,POINT OF CARE 119 MG/DL (70-110)
[2017-01-15] MEDS: MetFORMIN HCL 500 MG TABLET PO SCH ×2 (06:40→16:56)
[2017-01-15] MEDS: OLANZapine 5 MG RAPDIS TABLET PO PRN (06:55)
[2017-01-15] MEDS: DIVALPROEX SODIUM 500 MG DR TABLET PO SCH ×2 (08:15→20:06)
[2017-01-15] MEDS: TRIHEXYPHENIDYL HCL 5 MG TABLET PO SCH ×2 (08:15→16:56)
[2017-01-15] MEDS: NICOTINE 21 MG/24 HOUR PATCH TD SCH (08:16)
[2017-01-15] MEDS: METOPROLOL TARTRATE 25 MG TABLET PO SCH (08:16)
[2017-01-15] MEDS: VENLAFAXINE HCL 75 MG ER CAPSULE PO SCH (08:16)
[2017-01-15 08:29] VITALS: BP 125/70
[2017-01-15] MEDS: LORazepam 2 MG TABLET PO PRN ×2 (11:09→16:56)
[2017-01-15] MEDS: AMPHETAMINE/DEXTROAMPHETAMINE 10 MG TABLET PO SCH ×2 (11:30→13:00)
[2017-01-15 11:38] LABS: GLUCOSE,POINT OF CARE 101 MG/DL (70-110)
[2017-01-15 16:16] VITALS: BP 111/63
[2017-01-15 17:13] LABS: GLUCOSE,POINT OF CARE 106 MG/DL (70-110)
[2017-01-15] MEDS: PHENYTOIN SODIUM 100 MG ER CAPSULE PO SCH (20:05)
[2017-01-15] MEDS: NORTRIPTYLINE HCL 25 MG CAPSULE PO SCH (20:05)
[2017-01-15] MEDS: OLANZapine 7.5 MG TABLET PO SCH (20:06)
[2017-01-15] MEDS: FLUTICASONE/VILANTEROL 100-25 MCG/INH INHALER [14] IH SCH (20:09)
[2017-01-15 20:52] LABS: GLUCOSE,POINT OF CARE 113 MG/DL (70-110)
[2017-01-16 00:03] VITALS: BP 112/66
[2017-01-16 06:43] LABS: GLUCOSE,POINT OF CARE 106 MG/DL (70-110)
[2017-01-16] MEDS: MetFORMIN HCL 500 MG TABLET PO SCH ×2 (07:05→16:37)
[2017-01-16] MEDS: OLANZapine 5 MG RAPDIS TABLET PO PRN (07:05)
[2017-01-16] MEDS: DIVALPROEX SODIUM 500 MG DR TABLET PO SCH ×2 (08:12→20:06)
[2017-01-16] MEDS: TRIHEXYPHENIDYL HCL 5 MG TABLET PO SCH ×2 (08:12→16:36)
[2017-01-16] MEDS: METOPROLOL TARTRATE 25 MG TABLET PO SCH (08:12)
[2017-01-16] MEDS: AMPHETAMINE/DEXTROAMPHETAMINE 10 MG TABLET PO SCH ×2 (08:13→12:34)
[2017-01-16] MEDS: VENLAFAXINE HCL 75 MG ER CAPSULE PO SCH (08:13)
[2017-01-16] MEDS: NICOTINE 21 MG/24 HOUR PATCH TD SCH (08:13)
[2017-01-16 09:08] VITALS: BP 123/67
[2017-01-16 12:10] LABS: GLUCOSE,POINT OF CARE 79 MG/DL (70-110)
[2017-01-16 16:11] VITALS: BP 104/68
[2017-01-16] MEDS: LORazepam 2 MG TABLET PO PRN (16:36)
[2017-01-16 16:48] LABS: GLUCOSE,POINT OF CARE 110 MG/DL (70-110)
[2017-01-16] MEDS: FLUTICASONE/VILANTEROL 100-25 MCG/INH INHALER [14] IH SCH (20:06)
[2017-01-16] MEDS: OLANZapine 7.5 MG TABLET PO SCH (20:06)
[2017-01-16] MEDS: NORTRIPTYLINE HCL 25 MG CAPSULE PO SCH (20:06)
[2017-01-16 20:27] LABS: GLUCOSE,POINT OF CARE 121 MG/DL (70-110)
[2017-01-16] MEDS: PHENYTOIN SODIUM 100 MG ER CAPSULE PO SCH (22:01)
[2017-01-16] MEDS: ZOLPIDEM TARTRATE 10 MG TABLET PO PRN (22:08)
[2017-01-17 06:41] VITALS: BP 140/85
[2017-01-17] MEDS: MetFORMIN HCL 500 MG TABLET PO SCH ×2 (06:43→16:43)
[2017-01-17 06:48] LABS: GLUCOSE COMMENT 1 Received Meds; GLUCOSE,POINT OF CARE 116 MG/DL (70-110)
[2017-01-17] MEDS: OLANZapine 5 MG RAPDIS TABLET PO PRN (06:51)
[2017-01-17 08:26] VITALS: BP 116/60
[2017-01-17] MEDS: VENLAFAXINE HCL 75 MG ER CAPSULE PO SCH (08:49)
[2017-01-17] MEDS: AMPHETAMINE/DEXTROAMPHETAMINE 10 MG TABLET PO SCH ×2 (08:49→12:36)
[2017-01-17] MEDS: DIVALPROEX SODIUM 500 MG DR TABLET PO SCH ×2 (08:50→20:04)
[2017-01-17] MEDS: TRIHEXYPHENIDYL HCL 5 MG TABLET PO SCH ×2 (08:50→16:43)
[2017-01-17] MEDS: METOPROLOL TARTRATE 25 MG TABLET PO SCH (08:50)
[2017-01-17] MEDS: NICOTINE 21 MG/24 HOUR PATCH TD SCH (08:55)
[2017-01-17 11:13] LABS: GLUCOSE,POINT OF CARE 101 MG/DL (70-110)
[2017-01-17] MEDS: LORazepam 2 MG TABLET PO PRN ×2 (14:18→19:02)
[2017-01-17 16:15] VITALS: BP 111/60
[2017-01-17 16:28] LABS: GLUCOSE,POINT OF CARE 129 MG/DL (70-110)
[2017-01-17] MEDS: FLUTICASONE/VILANTEROL 100-25 MCG/INH INHALER [14] IH SCH (20:04)
[2017-01-17] MEDS: PHENYTOIN SODIUM 100 MG ER CAPSULE PO SCH (20:04)
[2017-01-17] MEDS: OLANZapine 7.5 MG TABLET PO SCH (20:05)
[2017-01-17] MEDS: NORTRIPTYLINE HCL 25 MG CAPSULE PO SCH (20:05)
[2017-01-17 21:22] LABS: GLUCOSE,POINT OF CARE 130 MG/DL (70-110)
[2017-01-17] MEDS: ZOLPIDEM TARTRATE 10 MG TABLET PO PRN (21:42)
[2017-01-18 01:21] VITALS: BP 113/66
[2017-01-18] MEDS: MetFORMIN HCL 500 MG TABLET PO SCH ×2 (06:06→16:37)
[2017-01-18 07:03] LABS: GLUCOSE,POINT OF CARE 114 MG/DL (70-110)
[2017-01-18] MEDS: VENLAFAXINE HCL 75 MG ER CAPSULE PO SCH (08:23)
[2017-01-18] MEDS: DIVALPROEX SODIUM 500 MG DR TABLET PO SCH ×2 (08:23→21:00)
[2017-01-18] MEDS: AMPHETAMINE/DEXTROAMPHETAMINE 10 MG TABLET PO SCH ×2 (08:24→12:53)
[2017-01-18] MEDS: METOPROLOL TARTRATE 25 MG TABLET PO SCH (08:24)
[2017-01-18] MEDS: TRIHEXYPHENIDYL HCL 5 MG TABLET PO SCH ×2 (08:24→16:37)
[2017-01-18] MEDS: NICOTINE 21 MG/24 HOUR PATCH TD SCH (08:26)
[2017-01-18 08:32] VITALS: BP 140/83
[2017-01-18] MEDS: LORazepam 2 MG TABLET PO PRN ×2 (10:00→16:02)
[2017-01-18 11:17] LABS: GLUCOSE,POINT OF CARE 86 MG/DL (70-110)
[2017-01-18 16:16] VITALS: BP 115/76
[2017-01-18 16:33] LABS: GLUCOSE,POINT OF CARE 132 MG/DL (70-110)
[2017-01-18] MEDS: OLANZapine 5 MG RAPDIS TABLET PO PRN (18:40)
[2017-01-18 20:38] LABS: GLUCOSE,POINT OF CARE 131 MG/DL (70-110)
[2017-01-18] MEDS: FLUTICASONE/VILANTEROL 100-25 MCG/INH INHALER [14] IH SCH (20:59)
[2017-01-18] MEDS: PHENYTOIN SODIUM 100 MG ER CAPSULE PO SCH (21:00)
[2017-01-18] MEDS: NORTRIPTYLINE HCL 25 MG CAPSULE PO SCH (21:00)
[2017-01-18] MEDS: OLANZapine 7.5 MG TABLET PO SCH (21:12)
[2017-01-18] MEDS: ZOLPIDEM TARTRATE 10 MG TABLET PO PRN (21:50)
[2017-01-19] MEDS: MetFORMIN HCL 500 MG TABLET PO SCH ×2 (06:24→16:33)
[2017-01-19 06:33] LABS: GLUCOSE,POINT OF CARE 121 MG/DL (70-110)
[2017-01-19 06:45] VITALS: BP 117/68
[2017-01-19] MEDS: METOPROLOL TARTRATE 25 MG TABLET PO SCH (08:19)
[2017-01-19] MEDS: NICOTINE 21 MG/24 HOUR PATCH TD SCH (08:20)
[2017-01-19] MEDS: VENLAFAXINE HCL 75 MG ER CAPSULE PO SCH (08:20)
[2017-01-19] MEDS: DIVALPROEX SODIUM 500 MG DR TABLET PO SCH ×2 (08:20→21:05)
[2017-01-19] MEDS: TRIHEXYPHENIDYL HCL 5 MG TABLET PO SCH ×2 (08:20→16:33)
[2017-01-19] MEDS: AMPHETAMINE/DEXTROAMPHETAMINE 10 MG TABLET PO SCH ×2 (08:20→12:38)
[2017-01-19 08:35] VITALS: BP 108/67
[2017-01-19 11:22] LABS: GLUCOSE,POINT OF CARE 113 MG/DL (70-110)
[2017-01-19 16:05] VITALS: BP 114/73
[2017-01-19 16:27] LABS: GLUCOSE,POINT OF CARE 135 MG/DL (70-110)
[2017-01-19] MEDS: OLANZapine 5 MG RAPDIS TABLET PO PRN (19:01)
[2017-01-19 20:33] LABS: GLUCOSE,POINT OF CARE 160 MG/DL (70-110)
[2017-01-19] MEDS: INSULIN ASPART 100 UNITS/ML SQ PRN (20:46)
[2017-01-19] MEDS: PHENYTOIN SODIUM 100 MG ER CAPSULE PO SCH (21:05)
[2017-01-19] MEDS: OLANZapine 7.5 MG TABLET PO SCH (21:05)
[2017-01-19] MEDS: NORTRIPTYLINE HCL 25 MG CAPSULE PO SCH (21:05)
[2017-01-19] MEDS: FLUTICASONE/VILANTEROL 100-25 MCG/INH INHALER [14] IH SCH (21:06)
[2017-01-20 06:23] VITALS: BP 124/81
[2017-01-20] MEDS: OLANZapine 5 MG RAPDIS TABLET PO PRN (06:30)
[2017-01-20] MEDS: MetFORMIN HCL 500 MG TABLET PO SCH ×2 (06:54→16:37)
[2017-01-20 06:57] LABS: GLUCOSE,POINT OF CARE 139 MG/DL (70-110)
[2017-01-20] MEDS: AMPHETAMINE/DEXTROAMPHETAMINE 10 MG TABLET PO SCH ×2 (08:16→12:41)
[2017-01-20] MEDS: METOPROLOL TARTRATE 25 MG TABLET PO SCH (08:16)
[2017-01-20] MEDS: DIVALPROEX SODIUM 500 MG DR TABLET PO SCH ×2 (08:16→20:32)
[2017-01-20] MEDS: NICOTINE 21 MG/24 HOUR PATCH TD SCH (08:16)
[2017-01-20] MEDS: VENLAFAXINE HCL 75 MG ER CAPSULE PO SCH (08:16)
[2017-01-20] MEDS: TRIHEXYPHENIDYL HCL 5 MG TABLET PO SCH ×2 (08:16→16:37)
[2017-01-20 08:20] VITALS: BP 123/71
[2017-01-20 11:08] LABS: GLUCOSE,POINT OF CARE 100 MG/DL (70-110)
[2017-01-20 16:02] VITALS: BP 121/78
[2017-01-20 16:47] LABS: GLUCOSE,POINT OF CARE 99 MG/DL (70-110)
[2017-01-20 20:17] LABS: GLUCOSE,POINT OF CARE 130 MG/DL (70-110)
[2017-01-20] MEDS: NORTRIPTYLINE HCL 25 MG CAPSULE PO SCH (20:32)
[2017-01-20] MEDS: PHENYTOIN SODIUM 100 MG ER CAPSULE PO SCH (20:32)
[2017-01-20] MEDS: OLANZapine 7.5 MG TABLET PO SCH (20:32)
[2017-01-20] MEDS: FLUTICASONE/VILANTEROL 100-25 MCG/INH INHALER [14] IH SCH (20:32)
[2017-01-20] MEDS: ZOLPIDEM TARTRATE 10 MG TABLET PO PRN (22:19)
[2017-01-21 01:44] VITALS: BP 110/70
[2017-01-21 06:17] LABS: GLUCOSE,POINT OF CARE 128 MG/DL (70-110)
[2017-01-21] MEDS: MetFORMIN HCL 500 MG TABLET PO SCH ×3 (06:20→16:39)
[2017-01-21] MEDS: OLANZapine 5 MG RAPDIS TABLET PO PRN ×2 (06:20→14:22)
[2017-01-21 08:25] VITALS: BP 122/72
[2017-01-21] MEDS: AMPHETAMINE/DEXTROAMPHETAMINE 10 MG TABLET PO SCH ×2 (08:27→12:28)
[2017-01-21] MEDS: VENLAFAXINE HCL 75 MG ER CAPSULE PO SCH (08:28)
[2017-01-21] MEDS: ACETAMINOPHEN 325 MG TABLET PO PRN ×2 (08:28→16:03)
[2017-01-21] MEDS: DIVALPROEX SODIUM 500 MG DR TABLET PO SCH ×2 (08:28→20:40)
[2017-01-21] MEDS: NICOTINE 21 MG/24 HOUR PATCH TD SCH (08:28)
[2017-01-21] MEDS: TRIHEXYPHENIDYL HCL 5 MG TABLET PO SCH ×2 (08:28→16:38)
[2017-01-21] MEDS: METOPROLOL TARTRATE 25 MG TABLET PO SCH (08:28)
[2017-01-21] MEDS: LORazepam 2 MG TABLET PO PRN ×2 (10:11→15:59)
[2017-01-21 11:07] LABS: GLUCOSE,POINT OF CARE 121 MG/DL (70-110)
[2017-01-21 16:07] VITALS: BP 119/67
[2017-01-21 16:08] VITALS: BP 119/67
[2017-01-21 16:23] LABS: GLUCOSE,POINT OF CARE 150 MG/DL (70-110)
[2017-01-21] MEDS: ALBUTEROL SULFATE HFA 90 MCG/PUFF 8 GM INHALER IH PRN (16:34)
[2017-01-21] MEDS: INSULIN ASPART 100 UNITS/ML SQ PRN (16:36)
[2017-01-21 20:27] LABS: GLUCOSE,POINT OF CARE 137 MG/DL (70-110)
[2017-01-21] MEDS: FLUTICASONE/VILANTEROL 100-25 MCG/INH INHALER [14] IH SCH (20:39)
[2017-01-21] MEDS: NORTRIPTYLINE HCL 25 MG CAPSULE PO SCH (20:39)
[2017-01-21] MEDS: OLANZapine 7.5 MG TABLET PO SCH (20:39)
[2017-01-21] MEDS: PHENYTOIN SODIUM 100 MG ER CAPSULE PO SCH (20:40)
[2017-01-21] MEDS: ZOLPIDEM TARTRATE 10 MG TABLET PO PRN (21:29)
[2017-01-22 01:59] VITALS: BP 111/62
[2017-01-22] MEDS: MetFORMIN HCL 500 MG TABLET PO SCH ×2 (06:23→16:34)
[2017-01-22] MEDS: OLANZapine 5 MG RAPDIS TABLET PO PRN ×2 (06:23→15:46)
[2017-01-22 06:43] LABS: GLUCOSE,POINT OF CARE 128 MG/DL (70-110)
[2017-01-22] MEDS: AMPHETAMINE/DEXTROAMPHETAMINE 10 MG TABLET PO SCH ×2 (08:15→12:26)
[2017-01-22] MEDS: VENLAFAXINE HCL 75 MG ER CAPSULE PO SCH (08:15)
[2017-01-22] MEDS: METOPROLOL TARTRATE 25 MG TABLET PO SCH (08:15)
[2017-01-22] MEDS: TRIHEXYPHENIDYL HCL 5 MG TABLET PO SCH ×2 (08:15→16:34)
[2017-01-22] MEDS: DIVALPROEX SODIUM 500 MG DR TABLET PO SCH ×2 (08:15→20:33)
[2017-01-22 08:17] VITALS: BP 124/71
[2017-01-22] MEDS: NICOTINE 21 MG/24 HOUR PATCH TD SCH (08:17)
[2017-01-22] MEDS: ACETAMINOPHEN 325 MG TABLET PO PRN ×2 (08:29→16:04)
[2017-01-22] MEDS: LORazepam 2 MG TABLET PO PRN (10:43)
[2017-01-22 11:07] LABS: GLUCOSE,POINT OF CARE 111 MG/DL (70-110)
[2017-01-22 16:01] VITALS: BP 114/71
[2017-01-22 16:22] LABS: GLUCOSE,POINT OF CARE 125 MG/DL (70-110)
[2017-01-22 20:17] LABS: GLUCOSE,POINT OF CARE 113 MG/DL (70-110)
[2017-01-22] MEDS: OLANZapine 7.5 MG TABLET PO SCH (20:32)
[2017-01-22] MEDS: FLUTICASONE/VILANTEROL 100-25 MCG/INH INHALER [14] IH SCH (20:32)
[2017-01-22] MEDS: NORTRIPTYLINE HCL 25 MG CAPSULE PO SCH (20:32)
[2017-01-22] MEDS: PHENYTOIN SODIUM 100 MG ER CAPSULE PO SCH (20:34)
[2017-01-23 01:26] VITALS: BP 111/71
[2017-01-23 06:12] LABS: GLUCOSE,POINT OF CARE 117 MG/DL (70-110)
[2017-01-23] MEDS: MetFORMIN HCL 500 MG TABLET PO SCH ×2 (06:49→16:54)
[2017-01-23] MEDS: AMPHETAMINE/DEXTROAMPHETAMINE 10 MG TABLET PO SCH ×2 (08:14→13:04)
[2017-01-23] MEDS: METOPROLOL TARTRATE 25 MG TABLET PO SCH (08:15)
[2017-01-23] MEDS: TRIHEXYPHENIDYL HCL 5 MG TABLET PO SCH ×2 (08:15→16:54)
[2017-01-23] MEDS: OLANZapine 5 MG RAPDIS TABLET PO PRN ×2 (08:15→15:37)
[2017-01-23] MEDS: NICOTINE 21 MG/24 HOUR PATCH TD SCH (08:15)
[2017-01-23] MEDS: VENLAFAXINE HCL 75 MG ER CAPSULE PO SCH (08:15)
[2017-01-23] MEDS: DIVALPROEX SODIUM 500 MG DR TABLET PO SCH ×2 (08:15→20:04)
[2017-01-23 08:18] VITALS: BP 123/65
[2017-01-23 11:24] VITALS: BP 118/68
[2017-01-23] MEDS: LORazepam 2 MG TABLET PO PRN (11:24)
[2017-01-23] MEDS: ACETAMINOPHEN 325 MG TABLET PO PRN ×2 (11:24→21:38)
[2017-01-23 11:28] LABS: GLUCOSE,POINT OF CARE 92 MG/DL (70-110)
[2017-01-23 16:01] VITALS: BP 112/73
[2017-01-23 16:37] LABS: GLUCOSE,POINT OF CARE 99 MG/DL (70-110)
[2017-01-23] MEDS: FLUTICASONE/VILANTEROL 100-25 MCG/INH INHALER [14] IH SCH (20:03)
[2017-01-23] MEDS: NORTRIPTYLINE HCL 25 MG CAPSULE PO SCH (20:04)
[2017-01-23] MEDS: OLANZapine 7.5 MG TABLET PO SCH (20:04)
[2017-01-23] MEDS: PHENYTOIN SODIUM 100 MG ER CAPSULE PO SCH (20:04)
[2017-01-23 20:07] LABS: GLUCOSE,POINT OF CARE 134 MG/DL (70-110)
[2017-01-23 21:38] VITALS: BP 116/74
[2017-01-24 00:48] VITALS: BP 109/60
[2017-01-24] MEDS: OLANZapine 5 MG RAPDIS TABLET PO PRN ×2 (05:36→15:40)
[2017-01-24 06:03] LABS: GLUCOSE,POINT OF CARE 130 MG/DL (70-110)
[2017-01-24] MEDS: MetFORMIN HCL 500 MG TABLET PO SCH ×2 (06:32→17:02)
[2017-01-24 08:11] VITALS: BP 118/60
[2017-01-24] MEDS: VENLAFAXINE HCL 75 MG ER CAPSULE PO SCH (08:18)
[2017-01-24] MEDS: DIVALPROEX SODIUM 500 MG DR TABLET PO SCH ×2 (08:18→20:15)
[2017-01-24] MEDS: TRIHEXYPHENIDYL HCL 5 MG TABLET PO SCH ×2 (08:18→17:02)
[2017-01-24] MEDS: AMPHETAMINE/DEXTROAMPHETAMINE 10 MG TABLET PO SCH ×2 (08:18→12:46)
[2017-01-24] MEDS: METOPROLOL TARTRATE 25 MG TABLET PO SCH (08:18)
[2017-01-24] MEDS: NICOTINE 21 MG/24 HOUR PATCH TD SCH (08:20)
[2017-01-24 11:13] LABS: GLUCOSE,POINT OF CARE 93 MG/DL (70-110)
[2017-01-24 16:10] VITALS: BP 111/73
[2017-01-24 16:43] LABS: GLUCOSE,POINT OF CARE 111 MG/DL (70-110)
[2017-01-24] MEDS: ACETAMINOPHEN 325 MG TABLET PO PRN (17:44)
[2017-01-24] MEDS: FLUTICASONE/VILANTEROL 100-25 MCG/INH INHALER [14] IH SCH (20:14)
[2017-01-24] MEDS: OLANZapine 7.5 MG TABLET PO SCH (20:14)
[2017-01-24] MEDS: PHENYTOIN SODIUM 100 MG ER CAPSULE PO SCH (20:14)
[2017-01-24] MEDS: NORTRIPTYLINE HCL 25 MG CAPSULE PO SCH (20:14)
[2017-01-24 20:32] LABS: GLUCOSE,POINT OF CARE 122 MG/DL (70-110)
[2017-01-25 02:06] VITALS: BP 117/68
[2017-01-25 06:17] LABS: GLUCOSE,POINT OF CARE 125 MG/DL (70-110)
[2017-01-25] MEDS: OLANZapine 5 MG RAPDIS TABLET PO PRN ×2 (06:29→15:32)
[2017-01-25] MEDS: MetFORMIN HCL 500 MG TABLET PO SCH ×2 (06:40→16:42)
[2017-01-25] MEDS: LORazepam 2 MG TABLET PO PRN (06:52)
[2017-01-25] MEDS: METOPROLOL TARTRATE 25 MG TABLET PO SCH (08:18)
[2017-01-25] MEDS: DIVALPROEX SODIUM 500 MG DR TABLET PO SCH ×2 (08:18→20:29)
[2017-01-25] MEDS: NICOTINE 21 MG/24 HOUR PATCH TD SCH (08:18)
[2017-01-25] MEDS: AMPHETAMINE/DEXTROAMPHETAMINE 10 MG TABLET PO SCH ×2 (08:18→12:51)
[2017-01-25] MEDS: VENLAFAXINE HCL 75 MG ER CAPSULE PO SCH (08:18)
[2017-01-25] MEDS: TRIHEXYPHENIDYL HCL 5 MG TABLET PO SCH ×2 (08:18→16:42)
[2017-01-25 08:40] VITALS: BP 118/64
[2017-01-25 11:12] LABS: GLUCOSE,POINT OF CARE 138 MG/DL (70-110)
[2017-01-25 16:00] VITALS: BP 109/72
[2017-01-25 16:17] LABS: GLUCOSE,POINT OF CARE 124 MG/DL (70-110)
[2017-01-25 20:22] LABS: GLUCOSE,POINT OF CARE 112 MG/DL (70-110)
[2017-01-25] MEDS: OLANZapine 7.5 MG TABLET PO SCH (20:29)
[2017-01-25] MEDS: PHENYTOIN SODIUM 100 MG ER CAPSULE PO SCH (20:29)
[2017-01-25] MEDS: NORTRIPTYLINE HCL 25 MG CAPSULE PO SCH (20:30)
[2017-01-25] MEDS: FLUTICASONE/VILANTEROL 100-25 MCG/INH INHALER [14] IH SCH (20:30)
[2017-01-25] MEDS: ACETAMINOPHEN 325 MG TABLET PO PRN (21:39)
[2017-01-25] MEDS: ZOLPIDEM TARTRATE 10 MG TABLET PO PRN (21:39)
[2017-01-26 06:13] LABS: GLUCOSE,POINT OF CARE 129 MG/DL (70-110)
[2017-01-26] MEDS: MetFORMIN HCL 500 MG TABLET PO SCH ×2 (06:24→16:33)
[2017-01-26 06:28] VITALS: BP 122/77
[2017-01-26] MEDS: OLANZapine 5 MG RAPDIS TABLET PO PRN ×2 (06:51→13:05)
[2017-01-26] MEDS: DIVALPROEX SODIUM 500 MG DR TABLET PO SCH ×2 (08:11→20:29)
[2017-01-26] MEDS: METOPROLOL TARTRATE 25 MG TABLET PO SCH (08:12)
[2017-01-26] MEDS: VENLAFAXINE HCL 75 MG ER CAPSULE PO SCH (08:12)
[2017-01-26] MEDS: AMPHETAMINE/DEXTROAMPHETAMINE 10 MG TABLET PO SCH ×2 (08:12→12:54)
[2017-01-26] MEDS: TRIHEXYPHENIDYL HCL 5 MG TABLET PO SCH ×2 (08:12→16:33)
[2017-01-26] MEDS: NICOTINE 21 MG/24 HOUR PATCH TD SCH (08:14)
[2017-01-26 08:15] VITALS: BP 120/65
[2017-01-26 11:08] LABS: GLUCOSE,POINT OF CARE 105 MG/DL (70-110)
[2017-01-26 16:07] VITALS: BP 105/64
[2017-01-26 16:28] LABS: GLUCOSE,POINT OF CARE 119 MG/DL (70-110)
[2017-01-26] MEDS: OLANZapine 7.5 MG TABLET PO SCH (20:28)
[2017-01-26] MEDS: NORTRIPTYLINE HCL 25 MG CAPSULE PO SCH (20:28)
[2017-01-26] MEDS: PHENYTOIN SODIUM 100 MG ER CAPSULE PO SCH (20:28)
[2017-01-26] MEDS: FLUTICASONE/VILANTEROL 100-25 MCG/INH INHALER [14] IH SCH (20:29)
[2017-01-26 20:58] LABS: GLUCOSE,POINT OF CARE 130 MG/DL (70-110)
[2017-01-26] MEDS: ZOLPIDEM TARTRATE 10 MG TABLET PO PRN (21:53)
[2017-01-27 05:28] LABS: GLUCOSE,POINT OF CARE 119 MG/DL (70-110)
[2017-01-27 06:15] VITALS: BP 123/65
[2017-01-27] MEDS: MetFORMIN HCL 500 MG TABLET PO SCH ×2 (07:07→16:11)
[2017-01-27] MEDS: OLANZapine 5 MG RAPDIS TABLET PO PRN ×2 (07:07→16:12)
[2017-01-27 08:14] VITALS: BP 107/64
[2017-01-27 08:45] VITALS: BP 122/67
[2017-01-27] MEDS: TRIHEXYPHENIDYL HCL 5 MG TABLET PO SCH ×2 (08:46→16:11)
[2017-01-27] MEDS: VENLAFAXINE HCL 75 MG ER CAPSULE PO SCH (08:46)
[2017-01-27] MEDS: AMPHETAMINE/DEXTROAMPHETAMINE 10 MG TABLET PO SCH ×2 (08:46→12:47)
[2017-01-27] MEDS: METOPROLOL TARTRATE 25 MG TABLET PO SCH (08:46)
[2017-01-27] MEDS: DIVALPROEX SODIUM 500 MG DR TABLET PO SCH ×2 (08:46→20:27)
[2017-01-27] MEDS: NICOTINE 21 MG/24 HOUR PATCH TD SCH (08:48)
[2017-01-27] MEDS: LORazepam 2 MG TABLET PO PRN ×2 (08:55→14:48)
[2017-01-27 11:38] LABS: GLUCOSE,POINT OF CARE 96 MG/DL (70-110)
[2017-01-27 16:02] VITALS: BP 114/72
[2017-01-27 16:17] LABS: GLUCOSE,POINT OF CARE 170 MG/DL (70-110)
[2017-01-27] MEDS: INSULIN ASPART 100 UNITS/ML SQ PRN ×2 (16:31→20:53)
[2017-01-27] MEDS: PHENYTOIN SODIUM 100 MG ER CAPSULE PO SCH (20:26)
[2017-01-27] MEDS: OLANZapine 7.5 MG TABLET PO SCH (20:27)
[2017-01-27] MEDS: NORTRIPTYLINE HCL 25 MG CAPSULE PO SCH (20:27)
[2017-01-27] MEDS: FLUTICASONE/VILANTEROL 100-25 MCG/INH INHALER [14] IH SCH (20:53)
[2017-01-27 20:57] LABS: GLUCOSE,POINT OF CARE 143 MG/DL (70-110)
[2017-01-28 04:15] VITALS: BP 114/67
[2017-01-28 06:34] LABS: GLUCOSE,POINT OF CARE 109 MG/DL (70-110)
[2017-01-28] MEDS: OLANZapine 5 MG RAPDIS TABLET PO PRN ×2 (06:55→13:23)
[2017-01-28] MEDS: MetFORMIN HCL 500 MG TABLET PO SCH ×2 (07:00→16:35)
[2017-01-28 08:25] VITALS: BP 122/73
[2017-01-28] MEDS: METOPROLOL TARTRATE 25 MG TABLET PO SCH (08:59)
[2017-01-28] MEDS: VENLAFAXINE HCL 75 MG ER CAPSULE PO SCH (08:59)
[2017-01-28] MEDS: NICOTINE 21 MG/24 HOUR PATCH TD SCH (09:00)
[2017-01-28] MEDS: DIVALPROEX SODIUM 500 MG DR TABLET PO SCH ×2 (09:00→20:42)
[2017-01-28] MEDS: AMPHETAMINE/DEXTROAMPHETAMINE 10 MG TABLET PO SCH ×2 (09:00→12:51)
[2017-01-28] MEDS: TRIHEXYPHENIDYL HCL 5 MG TABLET PO SCH ×2 (09:00→16:35)
[2017-01-28] MEDS: LORazepam 2 MG TABLET PO PRN (11:10)
[2017-01-28 11:14] LABS: GLUCOSE,POINT OF CARE 95 MG/DL (70-110)
[2017-01-28 16:15] LABS: GLUCOSE,POINT OF CARE 171 MG/DL (70-110)
[2017-01-28 16:21] VITALS: BP 118/61
[2017-01-28] MEDS: INSULIN ASPART 100 UNITS/ML SQ PRN (16:46)
[2017-01-28] MEDS: ACETAMINOPHEN 325 MG TABLET PO PRN (17:09)
[2017-01-28 20:19] LABS: GLUCOSE,POINT OF CARE 136 MG/DL (70-110)
[2017-01-28] MEDS: PHENYTOIN SODIUM 100 MG ER CAPSULE PO SCH (20:41)
[2017-01-28] MEDS: OLANZapine 7.5 MG TABLET PO SCH (20:41)
[2017-01-28] MEDS: FLUTICASONE/VILANTEROL 100-25 MCG/INH INHALER [14] IH SCH (20:41)
[2017-01-28] MEDS: NORTRIPTYLINE HCL 25 MG CAPSULE PO SCH (20:42)
[2017-01-28] MEDS: ZOLPIDEM TARTRATE 10 MG TABLET PO PRN (21:41)
[2017-01-29 06:23] LABS: GLUCOSE,POINT OF CARE 129 MG/DL (70-110)
[2017-01-29] MEDS: OLANZapine 5 MG RAPDIS TABLET PO PRN (06:26)
[2017-01-29 06:31] VITALS: BP 120/66
[2017-01-29] MEDS: MetFORMIN HCL 500 MG TABLET PO SCH ×2 (06:46→16:40)
[2017-01-29 08:00] VITALS: BP 145/81
[2017-01-29] MEDS: NICOTINE 21 MG/24 HOUR PATCH TD SCH (08:07)
[2017-01-29] MEDS: AMPHETAMINE/DEXTROAMPHETAMINE 10 MG TABLET PO SCH ×2 (08:07→12:48)
[2017-01-29] MEDS: METOPROLOL TARTRATE 25 MG TABLET PO SCH (08:07)
[2017-01-29] MEDS: TRIHEXYPHENIDYL HCL 5 MG TABLET PO SCH ×2 (08:07→16:40)
[2017-01-29] MEDS: DIVALPROEX SODIUM 500 MG DR TABLET PO SCH ×2 (08:07→20:47)
[2017-01-29] MEDS: VENLAFAXINE HCL 75 MG ER CAPSULE PO SCH (08:07)
[2017-01-29] MEDS: LORazepam 2 MG TABLET PO PRN ×2 (09:40→16:09)
[2017-01-29 11:07] LABS: GLUCOSE,POINT OF CARE 106 MG/DL (70-110)
[2017-01-29 11:08] VITALS: BP 136/78
[2017-01-29] MEDS: ACETAMINOPHEN 325 MG TABLET PO PRN ×2 (11:08→18:40)
[2017-01-29 16:02] VITALS: BP 120/75
[2017-01-29 16:12] LABS: GLUCOSE,POINT OF CARE 136 MG/DL (70-110)
[2017-01-29] MEDS: NORTRIPTYLINE HCL 25 MG CAPSULE PO SCH (20:46)
[2017-01-29 20:47] LABS: GLUCOSE,POINT OF CARE 158 MG/DL (70-110)
[2017-01-29] MEDS: PHENYTOIN SODIUM 100 MG ER CAPSULE PO SCH (20:47)
[2017-01-29] MEDS: OLANZapine 7.5 MG TABLET PO SCH (20:47)
[2017-01-29] MEDS: FLUTICASONE/VILANTEROL 100-25 MCG/INH INHALER [14] IH SCH (20:47)
[2017-01-29] MEDS: INSULIN ASPART 100 UNITS/ML SQ PRN (20:51)
[2017-01-30 06:22] LABS: GLUCOSE,POINT OF CARE 121 MG/DL (70-110)
[2017-01-30] MEDS: OLANZapine 5 MG RAPDIS TABLET PO PRN ×2 (06:34→13:38)
[2017-01-30 06:44] VITALS: BP 113/76
[2017-01-30] MEDS: MetFORMIN HCL 500 MG TABLET PO SCH ×2 (06:47→16:52)
[2017-01-30] MEDS: METOPROLOL TARTRATE 25 MG TABLET PO SCH (08:17)
[2017-01-30] MEDS: TRIHEXYPHENIDYL HCL 5 MG TABLET PO SCH ×2 (08:17→16:52)
[2017-01-30] MEDS: VENLAFAXINE HCL 75 MG ER CAPSULE PO SCH (08:17)
[2017-01-30] MEDS: DIVALPROEX SODIUM 500 MG DR TABLET PO SCH ×2 (08:17→20:56)
[2017-01-30] MEDS: AMPHETAMINE/DEXTROAMPHETAMINE 10 MG TABLET PO SCH ×2 (08:17→12:54)
[2017-01-30] MEDS: NICOTINE 21 MG/24 HOUR PATCH TD SCH (08:17)
[2017-01-30 08:45] VITALS: BP 104/68
[2017-01-30 09:58] VITALS: BP 106/64
[2017-01-30] MEDS: ACETAMINOPHEN 325 MG TABLET PO PRN (09:58)
[2017-01-30 11:23] LABS: GLUCOSE,POINT OF CARE 134 MG/DL (70-110)
[2017-01-30] MEDS: LORazepam 2 MG TABLET PO PRN (15:51)
[2017-01-30 16:02] LABS: GLUCOSE,POINT OF CARE 113 MG/DL (70-110)
[2017-01-30 16:46] VITALS: BP 120/73
[2017-01-30 20:13] LABS: GLUCOSE,POINT OF CARE 143 MG/DL (70-110)
[2017-01-30] MEDS: PHENYTOIN SODIUM 100 MG ER CAPSULE PO SCH (20:56)
[2017-01-30] MEDS: NORTRIPTYLINE HCL 25 MG CAPSULE PO SCH (20:56)
[2017-01-30] MEDS: FLUTICASONE/VILANTEROL 100-25 MCG/INH INHALER [14] IH SCH (20:56)
[2017-01-30] MEDS: OLANZapine 7.5 MG TABLET PO SCH (20:57)
[2017-01-30] MEDS: INSULIN ASPART 100 UNITS/ML SQ PRN (21:21)
[2017-01-31] MEDS: MetFORMIN HCL 500 MG TABLET PO SCH ×2 (06:20→16:41)
[2017-01-31] MEDS: OLANZapine 5 MG RAPDIS TABLET PO PRN ×2 (06:21→18:55)
[2017-01-31 06:28] LABS: GLUCOSE COMMENT 1 Received Meds; GLUCOSE,POINT OF CARE 146 MG/DL (70-110)
[2017-01-31] MEDS: INSULIN ASPART 100 UNITS/ML SQ PRN (06:28)
[2017-01-31 06:39] VITALS: BP 111/70
[2017-01-31 08:49] VITALS: BP 126/71
[2017-01-31] MEDS: DIVALPROEX SODIUM 500 MG DR TABLET PO SCH ×2 (08:54→20:21)
[2017-01-31] MEDS: TRIHEXYPHENIDYL HCL 5 MG TABLET PO SCH ×2 (08:54→16:41)
[2017-01-31] MEDS: METOPROLOL TARTRATE 25 MG TABLET PO SCH (08:54)
[2017-01-31] MEDS: VENLAFAXINE HCL 75 MG ER CAPSULE PO SCH (08:54)
[2017-01-31] MEDS: NICOTINE 21 MG/24 HOUR PATCH TD SCH (08:55)
[2017-01-31] MEDS: AMPHETAMINE/DEXTROAMPHETAMINE 10 MG TABLET PO SCH ×2 (08:55→12:27)
[2017-01-31 11:07] LABS: GLUCOSE,POINT OF CARE 110 MG/DL (70-110)
[2017-01-31] MEDS: LORazepam 2 MG TABLET PO PRN (13:25)
[2017-01-31 16:26] VITALS: BP 109/61
[2017-01-31] MEDS: ACETAMINOPHEN 325 MG TABLET PO PRN (16:26)
[2017-01-31 16:48] LABS: GLUCOSE,POINT OF CARE 109 MG/DL (70-110)
[2017-01-31] MEDS: FLUTICASONE/VILANTEROL 100-25 MCG/INH INHALER [14] IH SCH (20:21)
[2017-01-31] MEDS: PHENYTOIN SODIUM 100 MG ER CAPSULE PO SCH (20:21)
[2017-01-31] MEDS: OLANZapine 7.5 MG TABLET PO SCH (20:22)
[2017-01-31] MEDS: NORTRIPTYLINE HCL 25 MG CAPSULE PO SCH (20:22)
[2017-01-31 21:07] LABS: GLUCOSE,POINT OF CARE 106 MG/DL (70-110)
[2017-01-31] MEDS: ZOLPIDEM TARTRATE 10 MG TABLET PO PRN (21:53)
[2017-02-01 02:16] VITALS: BP 106/64
[2017-02-01 06:18] LABS: GLUCOSE,POINT OF CARE 119 MG/DL (70-110)
[2017-02-01] MEDS: OLANZapine 5 MG RAPDIS TABLET PO PRN ×2 (06:35→11:45)
[2017-02-01] MEDS: MetFORMIN HCL 500 MG TABLET PO SCH (06:40)
[2017-02-01 08:28] VITALS: BP 114/60
[2017-02-01] MEDS: METOPROLOL TARTRATE 25 MG TABLET PO SCH (08:43)
[2017-02-01] MEDS: DIVALPROEX SODIUM 500 MG DR TABLET PO SCH (08:43)
[2017-02-01] MEDS: VENLAFAXINE HCL 75 MG ER CAPSULE PO SCH (08:43)
[2017-02-01] MEDS: TRIHEXYPHENIDYL HCL 5 MG TABLET PO SCH (08:43)
[2017-02-01] MEDS: NICOTINE 21 MG/24 HOUR PATCH TD SCH (08:44)
[2017-02-01] MEDS: AMPHETAMINE/DEXTROAMPHETAMINE 10 MG TABLET PO SCH ×2 (08:44→12:54)
[2017-02-01] MEDS: LORazepam 2 MG TABLET PO PRN (09:51)
[2017-02-01 11:07] LABS: GLUCOSE,POINT OF CARE 138 MG/DL (70-110)
[2017-02-01] MEDS ORDERED: NORT25 PO (16:46)
[2017-02-01] MEDS ORDERED: TRIH5TAB2 PO (16:46)
[2017-02-01] MEDS ORDERED: DIVA500T52 PO (16:46)
[2017-02-01] MEDS ORDERED: OLAN7.5T2 PO (16:46)
[2017-02-01] MEDS ORDERED: VENL-67 PO (16:46)
== END 2017-02-01 14:50 | disposition home or self-care (01) | DRG 885 ==
LOC: EMS 18:28 → B2X 21:35
PROVIDERS: ADMIT Psychiatry & Neurology Child & Adolescent Psychiatry
DX: F25.1 Schizoaffective disorder, depressive type (principal); F22 Delusional disorders; R45.851 Suicidal ideations; E11.9 Type 2 diabetes mellitus without complications; E03.9 Hypothyroidism, unspecified; F32.9 Major depressive disorder, single episode, unspecified; F43.10 Post-traumatic stress disorder, unspecified; I10 Essential (primary) hypertension; J44.9 Chronic obstructive pulmonary disease, unspecified; K21.9 Gastro-esophageal reflux disease without esophagitis; Z88.6 Allergy status to analgesic agent; F17.210 Nicotine dependence, cigarettes, uncomplicated; F60.9 Personality disorder, unspecified; G40.909 Epilepsy, unspecified, not intractable, without status epilepticus; E78.00 Pure hypercholesterolemia, unspecified; Z86.73 Personal history of transient ischemic attack (TIA), and cerebral infarction without residual deficits; Z71.6 Tobacco abuse counseling; Z71.51 Drug abuse counseling and surveillance of drug abuser; Z59.9 Problem related to housing and economic circumstances, unspecified; Z91.5 Personal history of self-harm; Z88.8 Allergy status to other drugs, medicaments and biological substances
CPT/HCPCS: 71020; 80307; 82962; 83036; 84443; 87081; 99285; 99406; G0480; J3535

== ENCOUNTER 2017-02-28 13:31 | Inpatient (IN) | payer MEDICARE, MEDICAID ==
[~2017-02-28] VITALS: Ht 172.7 cm; Wt 98.5 kg
[~2017-02-28 13:31] MED LIST changes: +DIVA500T52 PO; -DOXY100C PO; -MIRT15 PO; -NEOM1OIN8 TP; +NORT25 PO
[2017-02-28 14:46] VITALS: BP 115/72
[2017-02-28] MEDS ORDERED: MAG HYDROX/AL HYDROX/SIMETH ES 30 ML SUSPENSION UDCUP PO PRN (16:15)
[2017-02-28] MEDS ORDERED: ACETAMINOPHEN 325 MG TABLET PO PRN (16:15)
[2017-02-28] MEDS ORDERED: MAGNESIUM HYDROXIDE SUSPENSION 30 ML UDCUP PO PRN (16:15)
[2017-02-28] MEDS ORDERED: ZOLPIDEM TARTRATE 10 MG TABLET PO PRN (16:15)
[2017-02-28] MEDS ORDERED: LOPERAMIDE HCL 2 MG CAPSULE PO PRN (16:15)
[2017-02-28] MEDS ORDERED: PROMETHAZINE HCL 25 MG TABLET PO PRN (16:15)
[2017-02-28] MEDS ORDERED: CLON.2 PO (16:50)
[2017-02-28] MEDS ORDERED: LEVO50 PO (16:50)
[2017-02-28 17:15] VITALS: BP 117/61
[2017-02-28] MEDS: TRIHEXYPHENIDYL HCL 5 MG TABLET PO SCH (17:30)
[2017-02-28 17:58] LABS: GLUCOMETER DEV NAME(LOC) BV2S; GLUCOSE,POINT OF CARE 108 MG/DL (70-110)
[2017-02-28] MEDS ORDERED: ALBUTEROL SULFATE HFA 90 MCG/PUFF 8 GM INHALER IH PRN (19:00)
[2017-02-28] MEDS ORDERED: METOPROLOL SUCCINATE 25 MG ER TABLET PO ONE (19:00)
[2017-02-28] MEDS ORDERED: GLUCAGON,HUMAN RECOMBINANT 1 MG VIAL IM PRN (19:00)
[2017-02-28] MEDS: PHENYTOIN SODIUM 100 MG ER CAPSULE PO SCH (20:29)
[2017-02-28] MEDS: DIVALPROEX SODIUM 500 MG ER TABLET PO SCH (20:29)
[2017-02-28] MEDS: OLANZapine 7.5 MG TABLET PO SCH (20:31)
[2017-02-28 20:52] LABS: GLUCOMETER DEV NAME(LOC) BV2S; GLUCOSE,POINT OF CARE 147 MG/DL (70-110)
[2017-02-28] MEDS: INSULIN ASPART 100 UNITS/ML SQ PRN (21:00)
[2017-03-01 01:46] VITALS: BP 119/67
[2017-03-01 06:22] LABS: GLUCOMETER DEV NAME(LOC) BV2S; GLUCOSE,POINT OF CARE 141 MG/DL (70-110)
[2017-03-01] MEDS: MetFORMIN HCL 500 MG TABLET PO SCH ×2 (06:37→16:42)
[2017-03-01] MEDS: LEVOTHYROXINE SODIUM 50 MCG TABLET PO SCH (06:37)
[2017-03-01] MEDS: INSULIN ASPART 100 UNITS/ML SQ PRN ×2 (06:56→16:43)
[2017-03-01 08:12] LABS: BASOPHILS % (AUTO) 0.7 % (0.0-2.0); EOSINOPHILS % (AUTO) 1.5 % (1.0-6.0); HEMATOCRIT 37.8 % (41-53); LYMPHOCYTES # (AUTO) 1.7 K/uL (1.0-4.8); LYMPHOCYTES % (AUTO) 32.4 % (22.0-44.0); MEAN CORPUSCULAR HEMOGLOBIN 31.3 pg (26.0-34.0); MEAN CORPUSCULAR HGB CONC 34.3 G/dL (31.0-37.0); MEAN CORPUSCULAR VOLUME 91 fL (80-100); MONOCYTES # (AUTO) 0.4 K/uL (0.1-1.0); MONOCYTES % (AUTO) 6.9 % (2.0-9.0); NEUTROPHILS # (AUTO) 3.1 K/uL (1.8-7.7); NEUTROPHILS % (AUTO) 58.5 % (40.0-70.0); PLATELET COUNT (AUTO) 216 K/uL (150-450); RED BLOOD CELL COUNT(AUTO) 4.16 MIL/uL (4.50-5.90); RED CELL DISTRIBUTION WIDTH 14.5 % (11.5-14.5)
[2017-03-01] MEDS: VENLAFAXINE HCL 75 MG ER CAPSULE PO SCH (08:23)
[2017-03-01] MEDS: NICOTINE 14 MG/24 HOUR PATCH TD SCH (08:23)
[2017-03-01] MEDS: TRIHEXYPHENIDYL HCL 5 MG TABLET PO SCH ×2 (08:23→16:42)
[2017-03-01] MEDS: DIVALPROEX SODIUM 500 MG ER TABLET PO SCH ×2 (08:23→20:35)
[2017-03-01] MEDS: METOPROLOL SUCCINATE 25 MG ER TABLET PO SCH (08:23)
[2017-03-01 08:39] VITALS: BP 135/72
[2017-03-01 08:46] LABS: ALANINE AMINOTRANSFERASE 35 U/L (12-78); ALBUMIN 3.6 g/dL (3.4-5.0); ALKALINE PHOSPHATASE 78 U/L (46-116); ANION GAP 8 mmol/L (8-16); ASPARTATE AMINOTRANSFERASE 21 U/L (15-37); BILIRUBIN,TOTAL 0.3 mg/dL (0.1-1.0); CALCIUM, TOTAL 8.6 mg/dL (8.8-10.5); CARBON DIOXIDE 26 mmol/L (22-29); CHLORIDE 103 mmol/L (98-107); CHOL/HDL RATIO 4.3 (4.2-7.3); CHOLESTEROL 273 mg/dL (131-200); CREATININE 0.75 mg/dL (0.60-1.30); FREE T4 (FREE THYROXINE) 0.64 ng/dL (0.76-1.46); GLOMERULAR FILTR. RATE CALC > 60 mL/min (>60); GLUCOSE,RANDOM 139 mg/dL (70-110); HDL CHOLESTEROL 63 mg/dL (40-60); LDL CHOL (CALC.) 163 mg/dL (0-130); PHENYTOIN (DILANTIN) 14.3 mcg/mL (10.0-20.0); POTASSIUM 4.1 mmol/L (3.5-5.1); SODIUM SERUM 137 mmol/L (136-145); THYROID STIMULATING HORMONE 1.99 uIU/mL (0.36-3.74); TOTAL PROTEIN, SERUM 7.1 g/dL (6.4-8.2); TRIGLYCERIDES 233 mg/dL (15-150); UREA NITROGEN, BLOOD 13 mg/dL (7-18); VALPROIC ACID 21 mcg/mL (50-100)
[2017-03-01 08:48] LABS: AMPHET/METH SCREEN,URINE NEGATIVE (NEGATIVE); BARBITURATE SCREEN, URINE NEGATIVE (NEGATIVE); BENZODIAZEPINES SCREEN,URINE NEGATIVE (NEGATIVE); CANNABINOID SCREEN,URINE NEGATIVE (NEGATIVE); COCAINE SCREEN,URINE NEGATIVE (NEGATIVE); METHADONE SCREEN, URINE NEGATIVE (NEGATIVE); OPIATE SCREEN,URINE NEGATIVE (NEGATIVE)
[2017-03-01 08:50] LABS: PHENCYCLIDINE SCREEN,URINE NEGATIVE (NEGATIVE)
[2017-03-01 09:22] LABS: APPEARANCE,URINE CLEAR (CLEAR); BILIRUBIN,URINE NEGATIVE (NEGATIVE); GLUCOSE, URINE (UA) NEGATIVE (NEGATIVE); KETONES,URINE NEGATIVE (NEGATIVE); LEUKOCYTE ESTERASE ,URINE NEGATIVE (NEGATIVE); NITRATE,URINE NEGATIVE (NEGATIVE); OCCULT BLOOD,URINE NEGATIVE (NEGATIVE); PH,URINE 6.5 (5.0-8.0); PROTEIN,URINE NEGATIVE (NEGATIVE); UROBILINOGEN,URINE 0.2 mg/dL (<=1.0)
[2017-03-01 16:22] LABS: GLUCOMETER DEV NAME(LOC) BV2S; GLUCOSE,POINT OF CARE 178 MG/DL (70-110)
[2017-03-01 16:25] VITALS: BP 140/83
[2017-03-01] MEDS: LORazepam 2 MG TABLET PO PRN (17:57)
[2017-03-01] MEDS ORDERED: ACETAMINOPHEN 325 MG TABLET PO PRN (20:30)
[2017-03-01] MEDS: PHENYTOIN SODIUM 100 MG ER CAPSULE PO SCH (20:35)
[2017-03-01] MEDS: OLANZapine 7.5 MG TABLET PO SCH (20:35)
[2017-03-02 01:36] VITALS: BP 120/62
[2017-03-02 06:22] LABS: GLUCOMETER DEV NAME(LOC) BV2S; GLUCOSE,POINT OF CARE 130 MG/DL (70-110)
[2017-03-02] MEDS: MetFORMIN HCL 500 MG TABLET PO SCH ×2 (06:49→16:44)
[2017-03-02] MEDS: LEVOTHYROXINE SODIUM 50 MCG TABLET PO SCH (06:49)
[2017-03-02 08:35] VITALS: BP 133/79
[2017-03-02] MEDS: VENLAFAXINE HCL 75 MG ER CAPSULE PO SCH (08:36)
[2017-03-02] MEDS: TRIHEXYPHENIDYL HCL 5 MG TABLET PO SCH ×3 (08:36→16:44)
[2017-03-02] MEDS: METOPROLOL SUCCINATE 25 MG ER TABLET PO SCH (08:36)
[2017-03-02] MEDS: DIVALPROEX SODIUM 500 MG ER TABLET PO SCH ×2 (08:36→20:46)
[2017-03-02] MEDS: NICOTINE 14 MG/24 HOUR PATCH TD SCH (08:38)
[2017-03-02 09:00] LABS: HEMOGLOBIN A1C 6.5 % (4.5-6.2)
[2017-03-02 09:09] LABS: CHOL/HDL RATIO 4.8 (4.2-7.3); THYROID STIMULATING HORMONE 1.39 uIU/mL (0.36-3.74)
[2017-03-02] MEDS: LORazepam 2 MG TABLET PO PRN (09:39)
[2017-03-02] MEDS ORDERED: PROMETHAZINE HCL 25 MG TABLET PO PRN (10:15)
[2017-03-02] MEDS ORDERED: GuaiFENesin/D-METHORPHAN [SUGAR-FREE] 200-20MG/10 ML SYRUP UDCUP PO PRN (10:15)
[2017-03-02] MEDS ORDERED: HydrOXYzine PAMOATE 50 MG CAPSULE PO PRN (10:15)
[2017-03-02 16:27] VITALS: BP 142/82
[2017-03-02 16:28] LABS: GLUCOMETER DEV NAME(LOC) BV2S; GLUCOSE,POINT OF CARE 152 MG/DL (70-110)
[2017-03-02] MEDS: THIAMINE HCL 100 MG TABLET PO SCH (16:47)
[2017-03-02] MEDS: INSULIN ASPART 100 UNITS/ML SQ PRN (16:48)
[2017-03-02] MEDS: NORTRIPTYLINE HCL 25 MG CAPSULE PO SCH (20:46)
[2017-03-02] MEDS: PHENYTOIN SODIUM 100 MG ER CAPSULE PO SCH (20:46)
[2017-03-02] MEDS: OLANZapine 7.5 MG TABLET PO SCH (20:47)
[2017-03-03 06:28] LABS: GLUCOMETER DEV NAME(LOC) BV2S; GLUCOSE,POINT OF CARE 142 MG/DL (70-110)
[2017-03-03] MEDS: LEVOTHYROXINE SODIUM 50 MCG TABLET PO SCH (06:41)
[2017-03-03] MEDS: MetFORMIN HCL 500 MG TABLET PO SCH ×2 (06:41→16:45)
[2017-03-03 06:48] VITALS: BP 139/82
[2017-03-03] MEDS: INSULIN ASPART 100 UNITS/ML SQ PRN (06:58)
[2017-03-03 08:15] VITALS: BP 129/73
[2017-03-03] MEDS: VENLAFAXINE HCL 75 MG ER CAPSULE PO SCH (08:18)
[2017-03-03] MEDS: TRIHEXYPHENIDYL HCL 5 MG TABLET PO SCH ×3 (08:18→16:45)
[2017-03-03] MEDS: MULTIVITAMINS WITH MINERALS, THERAPEUTIC TABLET PO SCH (08:19)
[2017-03-03] MEDS: NICOTINE 14 MG/24 HOUR PATCH TD SCH (08:19)
[2017-03-03] MEDS: METOPROLOL SUCCINATE 25 MG ER TABLET PO SCH (08:19)
[2017-03-03] MEDS: NALTREXONE HCL 50 MG TABLET PO SCH (08:19)
[2017-03-03] MEDS: THIAMINE HCL 100 MG TABLET PO SCH ×2 (08:19→16:45)
[2017-03-03] MEDS: FOLIC ACID 1 MG TABLET PO SCH (08:20)
[2017-03-03 10:01] LABS: AMPHET/METH SCREEN,URINE NEGATIVE (NEGATIVE); BARBITURATE SCREEN, URINE NEGATIVE (NEGATIVE); BENZODIAZEPINES SCREEN,URINE NEGATIVE (NEGATIVE); CANNABINOID SCREEN,URINE NEGATIVE (NEGATIVE); COCAINE SCREEN,URINE NEGATIVE (NEGATIVE); METHADONE SCREEN, URINE NEGATIVE (NEGATIVE); OPIATE SCREEN,URINE NEGATIVE (NEGATIVE)
[2017-03-03 10:02] LABS: PHENCYCLIDINE SCREEN,URINE NEGATIVE (NEGATIVE)
[2017-03-03 10:19] LABS: APPEARANCE,URINE CLEAR (CLEAR); BILIRUBIN,URINE NEGATIVE (NEGATIVE); GLUCOSE, URINE (UA) NEGATIVE (NEGATIVE); KETONES,URINE NEGATIVE (NEGATIVE); LEUKOCYTE ESTERASE ,URINE NEGATIVE (NEGATIVE); NITRATE,URINE NEGATIVE (NEGATIVE); OCCULT BLOOD,URINE NEGATIVE (NEGATIVE); PH,URINE 7.5 (5.0-8.0); PROTEIN,URINE NEGATIVE (NEGATIVE); UROBILINOGEN,URINE 0.2 mg/dL (<=1.0)
[2017-03-03] MEDS: LORazepam 2 MG TABLET PO PRN (11:23)
[2017-03-03 16:58] LABS: GLUCOMETER DEV NAME(LOC) BV2S; GLUCOSE,POINT OF CARE 123 MG/DL (70-110)
[2017-03-03 17:01] VITALS: BP 109/72
[2017-03-03] MEDS: DIVALPROEX SODIUM 500 MG ER TABLET PO SCH (20:12)
[2017-03-03] MEDS: NORTRIPTYLINE HCL 25 MG CAPSULE PO SCH (20:12)
[2017-03-03] MEDS: PHENYTOIN SODIUM 100 MG ER CAPSULE PO SCH (20:12)
[2017-03-03] MEDS: OLANZapine 7.5 MG TABLET PO SCH (20:12)
[2017-03-03] MEDS: SIMVASTATIN 20 MG TABLET PO SCH (20:13)
[2017-03-04 00:04] VITALS: BP 109/63
[2017-03-04 05:02] VITALS: BP 102/64
[2017-03-04 06:18] LABS: GLUCOMETER DEV NAME(LOC) BV2S; GLUCOSE,POINT OF CARE 156 MG/DL (70-110)
[2017-03-04] MEDS: MetFORMIN HCL 500 MG TABLET PO SCH ×2 (06:35→16:34)
[2017-03-04] MEDS: LEVOTHYROXINE SODIUM 50 MCG TABLET PO SCH (06:35)
[2017-03-04] MEDS: INSULIN ASPART 100 UNITS/ML SQ PRN (07:06)
[2017-03-04 08:35] VITALS: BP 98/56
[2017-03-04] MEDS: METOPROLOL SUCCINATE 25 MG ER TABLET PO SCH (09:00)
[2017-03-04 09:40] VITALS: BP 104/70
[2017-03-04] MEDS: TRIHEXYPHENIDYL HCL 5 MG TABLET PO SCH ×2 (09:41→12:58)
[2017-03-04] MEDS: THIAMINE HCL 100 MG TABLET PO SCH ×2 (09:41→16:32)
[2017-03-04] MEDS: NALTREXONE HCL 50 MG TABLET PO SCH (09:41)
[2017-03-04] MEDS: VENLAFAXINE HCL 75 MG ER CAPSULE PO SCH (09:41)
[2017-03-04] MEDS: FOLIC ACID 1 MG TABLET PO SCH (09:41)
[2017-03-04] MEDS: MULTIVITAMINS WITH MINERALS, THERAPEUTIC TABLET PO SCH (09:41)
[2017-03-04] MEDS: NICOTINE 14 MG/24 HOUR PATCH TD SCH (09:42)
[2017-03-04 16:07] VITALS: BP 129/77
[2017-03-04] MEDS: TRIHEXYPHENIDYL HCL 2 MG TABLET PO SCH (16:32)
[2017-03-04] MEDS: LORazepam 2 MG TABLET PO PRN (16:34)
[2017-03-04 16:47] LABS: GLUCOMETER DEV NAME(LOC) BV2S; GLUCOSE,POINT OF CARE 118 MG/DL (70-110)
[2017-03-04] MEDS: DIVALPROEX SODIUM 500 MG ER TABLET PO SCH (20:25)
[2017-03-04] MEDS: NORTRIPTYLINE HCL 25 MG CAPSULE PO SCH (20:25)
[2017-03-04] MEDS: PHENYTOIN SODIUM 100 MG ER CAPSULE PO SCH (20:26)
[2017-03-04] MEDS: SIMVASTATIN 20 MG TABLET PO SCH (20:26)
[2017-03-04] MEDS: OLANZapine 7.5 MG TABLET PO SCH (20:26)
[2017-03-05 05:43] VITALS: BP 140/85
[2017-03-05 06:32] LABS: GLUCOMETER DEV NAME(LOC) BV2S; GLUCOSE,POINT OF CARE 132 MG/DL (70-110)
[2017-03-05] MEDS: LEVOTHYROXINE SODIUM 50 MCG TABLET PO SCH (06:47)
[2017-03-05] MEDS: MetFORMIN HCL 500 MG TABLET PO SCH ×2 (06:47→16:51)
[2017-03-05] MEDS: LORazepam 2 MG TABLET PO PRN ×2 (06:54→13:58)
[2017-03-05] MEDS: TRIHEXYPHENIDYL HCL 2 MG TABLET PO SCH ×3 (08:12→16:51)
[2017-03-05] MEDS: VENLAFAXINE HCL 75 MG ER CAPSULE PO SCH (08:12)
[2017-03-05] MEDS: NALTREXONE HCL 50 MG TABLET PO SCH (08:12)
[2017-03-05] MEDS: MULTIVITAMINS WITH MINERALS, THERAPEUTIC TABLET PO SCH (08:12)
[2017-03-05] MEDS: THIAMINE HCL 100 MG TABLET PO SCH ×2 (08:12→16:51)
[2017-03-05] MEDS: METOPROLOL SUCCINATE 25 MG ER TABLET PO SCH (08:13)
[2017-03-05] MEDS: NICOTINE 14 MG/24 HOUR PATCH TD SCH (08:13)
[2017-03-05] MEDS: FOLIC ACID 1 MG TABLET PO SCH (08:13)
[2017-03-05 08:57] VITALS: BP 130/77
[2017-03-05] MEDS ORDERED: PHENY100 PO (14:13)
[2017-03-05] MEDS ORDERED: TRIH2TAB3 PO ×2 (14:13→14:54)
[2017-03-05] MEDS ORDERED: NORT25 PO ×2 (14:13→14:54)
[2017-03-05] MEDS ORDERED: DIVA500T52 PO ×2 (14:13→14:54)
[2017-03-05] MEDS ORDERED: OLAN7.5T9 PO (14:13)
[2017-03-05] MEDS ORDERED: NALT50TA PO (14:13)
[2017-03-05] MEDS ORDERED: VENL75CA55 PO (14:13)
[2017-03-05] MEDS ORDERED: SIMV-260 PO (14:54)
[2017-03-05] MEDS ORDERED: PHEN100C23 PO (14:54)
[2017-03-05] MEDS ORDERED: LEVO50 PO (14:54)
[2017-03-05] MEDS ORDERED: OLAN7.5T2 PO (14:54)
[2017-03-05] MEDS ORDERED: VENL-67 PO (14:54)
[2017-03-05] MEDS ORDERED: NALT50TA6 PO (14:54)
[2017-03-05] MEDS ORDERED: METO25XL PO (14:54)
[2017-03-05] MEDS ORDERED: METF500T4 PO (14:54)
[2017-03-05 16:05] VITALS: BP 120/70
[2017-03-05 16:58] LABS: GLUCOMETER DEV NAME(LOC) BV2S; GLUCOSE,POINT OF CARE 99 MG/DL (70-110)
== END 2017-03-05 17:00 | disposition home or self-care (01) | DRG 885 ==
LOC: EDSTATUS 14:31 → B2X 16:28
PROVIDERS: ADMIT Psychiatry & Neurology Psychiatry; ATTEND Psychiatry & Neurology Psychiatry
DX: F25.9 Schizoaffective disorder, unspecified (principal); R45.851 Suicidal ideations; E11.9 Type 2 diabetes mellitus without complications; E78.5 Hyperlipidemia, unspecified; E03.9 Hypothyroidism, unspecified; D64.9 Anemia, unspecified; K21.9 Gastro-esophageal reflux disease without esophagitis; J44.9 Chronic obstructive pulmonary disease, unspecified; I10 Essential (primary) hypertension; G40.909 Epilepsy, unspecified, not intractable, without status epilepticus; F15.10 Other stimulant abuse, uncomplicated; Z88.8 Allergy status to other drugs, medicaments and biological substances; Z88.4 Allergy status to anesthetic agent
CPT/HCPCS: 80307; 82962; 83036; 84439; 84443; 87081; 99285

== ENCOUNTER 2017-07-01 10:07 | Inpatient (IN) | payer MEDICARE, MEDICAID ==
[~2017-07-01] VITALS: Ht 172.7 cm; Wt 95.3 kg
[~2017-07-01 10:07] MED LIST changes: +CLON.2 PO; +CLOP75 PO; -DIVA500T52 PO; -DIVA500T69 PO; -FLUT1AER IH; -METF500T4 PO; -METO25 PO; +METO25XL PO; -NORT25 PO; -OLAN7.5T2 PO; -TRIH5TAB2 PO; -VENL-67 PO
[2017-07-01 11:00] VITALS: BP 122/66
[2017-07-01] MEDS ORDERED: MIRT15 PO (11:10)
[2017-07-01] MEDS ORDERED: QUET300T2 PO (11:10)
[2017-07-01] MEDS ORDERED: NALT50TA6 PO (11:10)
[2017-07-01] MEDS ORDERED: DIVA500T52 PO (11:10)
[2017-07-01] MEDS ORDERED: ZOLPIDEM TARTRATE 10 MG TABLET PO PRN ×2 (11:30→11:45)
[2017-07-01] MEDS ORDERED: QUEtiapine FUMARATE 100 MG TABLET PO PRN (11:30)
[2017-07-01] MEDS ORDERED: MAGNESIUM HYDROXIDE SUSPENSION 30 ML UDCUP PO PRN (11:45)
[2017-07-01] MEDS ORDERED: MAG HYDROX/AL HYDROX/SIMETH ES 30 ML SUSPENSION UDCUP PO PRN (11:45)
[2017-07-01] MEDS ORDERED: PROMETHAZINE HCL 25 MG TABLET PO PRN (11:45)
[2017-07-01] MEDS ORDERED: ACETAMINOPHEN 325 MG TABLET PO PRN ×2 (11:45→13:15)
[2017-07-01] MEDS ORDERED: LOPERAMIDE HCL 2 MG CAPSULE PO PRN (11:45)
[2017-07-01] MEDS ORDERED: GuaiFENesin/D-METHORPHAN [SUGAR-FREE] 200-20MG/10 ML SYRUP UDCUP PO PRN (11:45)
[2017-07-01] MEDS ORDERED: HydrOXYzine PAMOATE 50 MG CAPSULE PO PRN (11:45)
[2017-07-01 12:16] VITALS: BP 129/75
[2017-07-01] MEDS: NALTREXONE HCL 50 MG TABLET PO SCH (12:53)
[2017-07-01 13:07] LABS: GLUCOMETER DEV NAME(LOC) BV2S; GLUCOSE,POINT OF CARE 170 MG/DL (70-110)
[2017-07-01] MEDS: THIAMINE HCL 100 MG TABLET PO SCH (16:18)
[2017-07-01 16:22] VITALS: BP 111/74
[2017-07-01] MEDS: DIVALPROEX SODIUM 500 MG ER TABLET PO SCH (20:20)
[2017-07-01] MEDS: PHENYTOIN SODIUM 100 MG ER CAPSULE PO SCH (20:20)
[2017-07-01] MEDS: QUEtiapine FUMARATE 300 MG TABLET PO SCH (20:20)
[2017-07-01] MEDS: MIRTAZAPINE 15 MG TABLET PO SCH (20:21)
[2017-07-01] MEDS ORDERED: PHENYTOIN SODIUM 100 MG ER CAPSULE PO SCH (21:00)
[2017-07-02 06:09] VITALS: BP 140/78
[2017-07-02 08:20] VITALS: BP 139/76
[2017-07-02 08:28] LABS: BASOPHILS % (AUTO) 0.7 % (0.0-2.0); EOSINOPHILS % (AUTO) 2.8 % (1.0-6.0); HEMATOCRIT 38.2 % (41-53); HEMOGLOBIN 13.2 g/dL (13.5-17.5); LYMPHOCYTES # (AUTO) 1.3 K/uL (1.0-4.8); LYMPHOCYTES % (AUTO) 27.4 % (22.0-44.0); MEAN CORPUSCULAR HEMOGLOBIN 31.4 pg (26.0-34.0); MEAN CORPUSCULAR HGB CONC 34.7 G/dL (31.0-37.0); MEAN CORPUSCULAR VOLUME 91 fL (80-100); MONOCYTES # (AUTO) 0.4 K/uL (0.1-1.0); MONOCYTES % (AUTO) 7.8 % (2.0-9.0); NEUTROPHILS # (AUTO) 2.9 K/uL (1.8-7.7); NEUTROPHILS % (AUTO) 61.3 % (40.0-70.0); PLATELET COUNT (AUTO) 193 K/uL (150-450); RED BLOOD CELL COUNT(AUTO) 4.22 MIL/uL (4.50-5.90); RED CELL DISTRIBUTION WIDTH 13.4 % (11.5-14.5)
[2017-07-02] MEDS: CLOPIDOGREL BISULFATE 75 MG TABLET PO SCH (08:51)
[2017-07-02] MEDS: METOPROLOL SUCCINATE 25 MG ER TABLET PO SCH (08:51)
[2017-07-02] MEDS: MULTIVITAMINS WITH MINERALS, THERAPEUTIC TABLET PO SCH (08:51)
[2017-07-02] MEDS: THIAMINE HCL 100 MG TABLET PO SCH ×2 (08:51→16:30)
[2017-07-02] MEDS: FOLIC ACID 1 MG TABLET PO SCH (08:51)
[2017-07-02] MEDS: CloNIDine HCL 0.2 MG TABLET PO SCH (08:51)
[2017-07-02] MEDS: NALTREXONE HCL 50 MG TABLET PO SCH (08:51)
[2017-07-02 09:14] LABS: HEMOGLOBIN A1C 6.8 % (4.5-6.2)
[2017-07-02 09:34] LABS: ALANINE AMINOTRANSFERASE 36 U/L (12-78); ALBUMIN 3.6 g/dL (3.4-5.0); ALKALINE PHOSPHATASE 79 U/L (46-116); ANION GAP 7 mmol/L (8-16); ASPARTATE AMINOTRANSFERASE 16 U/L (15-37); BILIRUBIN,TOTAL 0.3 mg/dL (0.1-1.0); CALCIUM, TOTAL 9.1 mg/dL (8.8-10.5); CARBON DIOXIDE 31 mmol/L (22-29); CHLORIDE 102 mmol/L (98-107); CHOL/HDL RATIO 5.7 (4.2-7.3); CHOLESTEROL 261 mg/dL (131-200); CREATININE 0.69 mg/dL (0.60-1.30); FREE T4 (FREE THYROXINE) 0.78 ng/dL (0.76-1.46); GLOMERULAR FILTR. RATE CALC > 60 mL/min (>60); GLUCOSE,RANDOM 131 mg/dL (70-110); HDL CHOLESTEROL 46 mg/dL (40-60); LDL CHOL (CALC.) 154 mg/dL (0-130); POTASSIUM 4.4 mmol/L (3.5-5.1); SODIUM SERUM 140 mmol/L (136-145); THYROID STIMULATING HORMONE 2.07 uIU/mL (0.36-3.74); TOTAL PROTEIN, SERUM 6.7 g/dL (6.4-8.2); TRIGLYCERIDES 307 mg/dL (15-150); UREA NITROGEN, BLOOD 13 mg/dL (7-18); VALPROIC ACID 26 mcg/mL (50-100)
[2017-07-02] MEDS: NICOTINE 7 MG/24 HOUR PATCH TD SCH (11:32)
[2017-07-02 16:11] VITALS: BP 127/72
[2017-07-02] MEDS: LORazepam 2 MG TABLET PO PRN (16:30)
[2017-07-02] MEDS: MIRTAZAPINE 15 MG TABLET PO SCH (20:46)
[2017-07-02] MEDS: QUEtiapine FUMARATE 300 MG TABLET PO SCH (20:46)
[2017-07-02] MEDS: PHENYTOIN SODIUM 100 MG ER CAPSULE PO SCH (20:46)
[2017-07-02] MEDS: DIVALPROEX SODIUM 500 MG ER TABLET PO SCH (21:00)
[2017-07-03 01:02] VITALS: BP 114/64
[2017-07-03 08:35] VITALS: BP 126/78
[2017-07-03] MEDS: MULTIVITAMINS WITH MINERALS, THERAPEUTIC TABLET PO SCH (08:36)
[2017-07-03] MEDS: FOLIC ACID 1 MG TABLET PO SCH (08:36)
[2017-07-03] MEDS: METOPROLOL SUCCINATE 25 MG ER TABLET PO SCH (08:36)
[2017-07-03] MEDS: CloNIDine HCL 0.2 MG TABLET PO SCH (08:36)
[2017-07-03] MEDS: CLOPIDOGREL BISULFATE 75 MG TABLET PO SCH (08:36)
[2017-07-03] MEDS: NALTREXONE HCL 50 MG TABLET PO SCH (08:36)
[2017-07-03] MEDS: THIAMINE HCL 100 MG TABLET PO SCH ×2 (08:36→16:22)
[2017-07-03] MEDS: NICOTINE 7 MG/24 HOUR PATCH TD SCH (08:37)
[2017-07-03 16:16] VITALS: BP 136/84
[2017-07-03] MEDS: MIRTAZAPINE 15 MG TABLET PO SCH (20:57)
[2017-07-03] MEDS: PHENYTOIN SODIUM 100 MG ER CAPSULE PO SCH (20:57)
[2017-07-03] MEDS: QUEtiapine FUMARATE 300 MG TABLET PO SCH (20:57)
[2017-07-03] MEDS: DIVALPROEX SODIUM 500 MG ER TABLET PO SCH (21:00)
[2017-07-04 00:10] VITALS: BP 112/60
[2017-07-04] MEDS: THIAMINE HCL 100 MG TABLET PO SCH ×2 (08:50→16:17)
[2017-07-04] MEDS: CloNIDine HCL 0.2 MG TABLET PO SCH (08:50)
[2017-07-04] MEDS: METOPROLOL SUCCINATE 25 MG ER TABLET PO SCH (08:50)
[2017-07-04] MEDS: FOLIC ACID 1 MG TABLET PO SCH (08:50)
[2017-07-04] MEDS: NALTREXONE HCL 50 MG TABLET PO SCH (08:50)
[2017-07-04] MEDS: MULTIVITAMINS WITH MINERALS, THERAPEUTIC TABLET PO SCH (08:50)
[2017-07-04] MEDS: CLOPIDOGREL BISULFATE 75 MG TABLET PO SCH (08:50)
[2017-07-04] MEDS: NICOTINE 7 MG/24 HOUR PATCH TD SCH (08:51)
[2017-07-04 09:20] VITALS: BP 135/89
[2017-07-04] MEDS: LORazepam 2 MG TABLET PO PRN (13:44)
[2017-07-04 16:51] VITALS: BP 111/70
[2017-07-04] MEDS: QUEtiapine FUMARATE 300 MG TABLET PO SCH (20:44)
[2017-07-04] MEDS: PHENYTOIN SODIUM 100 MG ER CAPSULE PO SCH (20:44)
[2017-07-04] MEDS: MIRTAZAPINE 15 MG TABLET PO SCH (20:44)
[2017-07-04] MEDS: DIVALPROEX SODIUM 500 MG ER TABLET PO SCH (20:44)
[2017-07-05 01:27] VITALS: BP 100/60
[2017-07-05 06:41] VITALS: BP 138/82
[2017-07-05] MEDS: LORazepam 2 MG TABLET PO PRN ×2 (06:42→15:20)
[2017-07-05] MEDS: NALTREXONE HCL 50 MG TABLET PO SCH (08:20)
[2017-07-05] MEDS: NICOTINE 7 MG/24 HOUR PATCH TD SCH (08:20)
[2017-07-05] MEDS: MULTIVITAMINS WITH MINERALS, THERAPEUTIC TABLET PO SCH (08:20)
[2017-07-05] MEDS: CLOPIDOGREL BISULFATE 75 MG TABLET PO SCH (08:20)
[2017-07-05] MEDS: THIAMINE HCL 100 MG TABLET PO SCH ×2 (08:20→16:10)
[2017-07-05] MEDS: METOPROLOL SUCCINATE 25 MG ER TABLET PO SCH (08:20)
[2017-07-05] MEDS: FOLIC ACID 1 MG TABLET PO SCH (08:20)
[2017-07-05] MEDS: CloNIDine HCL 0.2 MG TABLET PO SCH (08:20)
[2017-07-05 08:50] VITALS: BP 140/66
[2017-07-05] MEDS ORDERED: NALT50TA PO (15:34)
[2017-07-05] MEDS ORDERED: QUET300T18 PO (15:34)
[2017-07-05] MEDS ORDERED: PHENY100 PO (15:34)
[2017-07-05] MEDS ORDERED: MIRT15 PO (15:34)
[2017-07-05 16:24] VITALS: BP 127/69
[2017-07-05] MEDS ORDERED: THIA100 PO (16:46)
[2017-07-05] MEDS ORDERED: MULT-1239 PO (16:47)
[2017-07-05] MEDS ORDERED: MetFORMIN HCL 500 MG TABLET PO SCH ×2 (17:00)
[2017-07-05] MEDS ORDERED: PHENYTOIN SODIUM 100 MG ER CAPSULE PO ONE (21:00)
== END 2017-07-05 19:42 | disposition home or self-care (01) | DRG 885 ==
LOC: B2X 11:57
PROVIDERS: ADMIT Psychiatry & Neurology Psychiatry; ATTEND Psychiatry & Neurology Psychiatry
DX: F25.9 Schizoaffective disorder, unspecified (principal); E11.9 Type 2 diabetes mellitus without complications; R45.851 Suicidal ideations; E03.9 Hypothyroidism, unspecified; E78.5 Hyperlipidemia, unspecified; F17.200 Nicotine dependence, unspecified, uncomplicated; G40.909 Epilepsy, unspecified, not intractable, without status epilepticus; I10 Essential (primary) hypertension; J44.9 Chronic obstructive pulmonary disease, unspecified; K21.9 Gastro-esophageal reflux disease without esophagitis; Z65.3 Problems related to other legal circumstances; Z86.73 Personal history of transient ischemic attack (TIA), and cerebral infarction without residual deficits; Z91.19 Patient's noncompliance with other medical treatment and regimen; F90.9 Attention-deficit hyperactivity disorder, unspecified type; F39 Unspecified mood [affective] disorder
CPT/HCPCS: 82962; 83036; 84439; 84443; 93005

== ENCOUNTER 2017-09-17 09:42 | Emergency (ER) | payer MEDICARE, OTHER ==
[~2017-09-17] VITALS: Ht 172.7 cm; Wt 96.3 kg
[~2017-09-17 09:42] MED LIST changes: +MIRT15 PO; +MULT-1239 PO; +NALT50TA PO; +NALT50TA6 PO; +QUET300T18 PO; +QUET300T2 PO; +THIA100T67 PO
[2017-09-17 09:57] LABS: GLUCOSE,POINT OF CARE 166 MG/DL (70-110)
[2017-09-17 11:02] LABS: BASOPHILS % (AUTO) 0.6 % (0.0-2.0); EOSINOPHILS % (AUTO) 0.3 % (1.0-6.0); HEMATOCRIT 39.5 % (41-53); HEMOGLOBIN 13.6 g/dL (13.5-17.5); LYMPHOCYTES # (AUTO) 1.2 K/uL (1.0-4.8); LYMPHOCYTES % (AUTO) 13.2 % (22.0-44.0); MEAN CORPUSCULAR HEMOGLOBIN 30.5 pg (26.0-34.0); MEAN CORPUSCULAR HGB CONC 34.4 G/dL (31.0-37.0); MEAN CORPUSCULAR VOLUME 89 fL (80-100); MONOCYTES # (AUTO) 0.4 K/uL (0.1-1.0); MONOCYTES % (AUTO) 3.9 % (2.0-9.0); NEUTROPHILS # (AUTO) 7.6 K/uL (1.8-7.7); PLATELET COUNT (AUTO) 250 K/uL (150-450); RED BLOOD CELL COUNT(AUTO) 4.46 MIL/uL (4.50-5.90); RED CELL DISTRIBUTION WIDTH 13.8 % (11.5-14.5)
[2017-09-17 11:10] LABS: ANION GAP 7 mmol/L (8-16); CALCIUM, TOTAL 8.6 mg/dL (8.8-10.5); CARBON DIOXIDE 27 mmol/L (22-29); CHLORIDE 99 mmol/L (98-107); CREATININE 0.85 mg/dL (0.60-1.30); GLOMERULAR FILTR. RATE CALC > 60 mL/min (>60); GLUCOSE,RANDOM 222 mg/dL (70-110); POTASSIUM 4.4 mmol/L (3.5-5.1); SODIUM SERUM 133 mmol/L (136-145); UREA NITROGEN, BLOOD 17 mg/dL (7-18)
[2017-09-17 11:15] LABS: ALANINE AMINOTRANSFERASE 33 U/L (12-78); ALBUMIN 3.7 g/dL (3.4-5.0); ALKALINE PHOSPHATASE 114 U/L (46-116); ASPARTATE AMINOTRANSFERASE 17 U/L (15-37); BILIRUBIN,TOTAL 0.2 mg/dL (0.1-1.0); TOTAL PROTEIN, SERUM 7.3 g/dL (6.4-8.2)
[2017-09-17 11:24] LABS: TROPONIN I < 0.02 ng/mL (0.00-0.05)
[2017-09-17 11:30] LABS: AMMONIA 11 umol/L (11-32)
[2017-09-17 13:31] VITALS: BP 167/87
== END 2017-09-17 14:14 | disposition home or self-care (01) ==
LOC: EMS 09:44
DX: S42.212A Unspecified displaced fracture of surgical neck of left humerus, initial encounter for closed fracture (principal); E11.9 Type 2 diabetes mellitus without complications; E78.00 Pure hypercholesterolemia, unspecified; I10 Essential (primary) hypertension; F17.210 Nicotine dependence, cigarettes, uncomplicated; Z86.73 Personal history of transient ischemic attack (TIA), and cerebral infarction without residual deficits; Z88.6 Allergy status to analgesic agent; Z88.8 Allergy status to other drugs, medicaments and biological substances; W19.XXXA Unspecified fall, initial encounter; Y93.89 Activity, other specified; Y92.89 Other specified places as the place of occurrence of the external cause; Y99.8 Other external cause status
CPT/HCPCS: 36415; 70450; 71045; 73030; 80053; 82140; 82948; 82962; 84484; 85025; 93005; 99285; G0480

== ENCOUNTER 2017-09-23 19:21 | Inpatient (IN) | payer MEDICARE, MEDICAID ==
[~2017-09-23] VITALS: Ht 172.7 cm; Wt 94.2 kg
[2017-09-23] MEDS ORDERED: METF500T6 PO (19:36)
[2017-09-23] MEDS ORDERED: METO25 PO (19:36)
[2017-09-23] MEDS ORDERED: DIAZ10 PO (19:36)
[2017-09-23] MEDS ORDERED: VENL-193 PO (19:36)
[2017-09-23] MEDS ORDERED: CLOP75 PO (19:36)
[2017-09-23 19:43] LABS: GLUCOSE,POINT OF CARE 199 MG/DL (70-110)
[2017-09-23 19:53] LABS: BASOPHILS % (AUTO) 0.7 % (0.0-2.0); EOSINOPHILS % (AUTO) 0.8 % (1.0-6.0); LYMPHOCYTES # (AUTO) 2.9 K/uL (1.0-4.8); LYMPHOCYTES % (AUTO) 22.6 % (22.0-44.0); MEAN CORPUSCULAR HGB CONC 34.2 G/dL (31.0-37.0); MEAN CORPUSCULAR VOLUME 88 fL (80-100); MONOCYTES # (AUTO) 1.2 K/uL (0.1-1.0); MONOCYTES % (AUTO) 9.6 % (2.0-9.0); NEUTROPHILS # (AUTO) 8.5 K/uL (1.8-7.7); NEUTROPHILS % (AUTO) 66.3 % (40.0-70.0); PLATELET COUNT (AUTO) 255 K/uL (150-450); RED BLOOD CELL COUNT(AUTO) 4.33 MIL/uL (4.50-5.90); RED CELL DISTRIBUTION WIDTH 13.7 % (11.5-14.5)
[2017-09-23 20:04] LABS: AMPHET/METH SCREEN,URINE NEGATIVE (NEGATIVE); BARBITURATE SCREEN, URINE NEGATIVE (NEGATIVE); BENZODIAZEPINES SCREEN,URINE NEGATIVE (NEGATIVE); CANNABINOID SCREEN,URINE NEGATIVE (NEGATIVE); COCAINE SCREEN,URINE NEGATIVE (NEGATIVE); METHADONE SCREEN, URINE NEGATIVE (NEGATIVE); OPIATE SCREEN,URINE NEGATIVE (NEGATIVE)
[2017-09-23 20:10] LABS: PHENCYCLIDINE SCREEN,URINE NEGATIVE (NEGATIVE)
[2017-09-23 20:15] LABS: ANION GAP 7 mmol/L (8-16); CALCIUM, TOTAL 9.5 mg/dL (8.8-10.5); CARBON DIOXIDE 27 mmol/L (22-29); CHLORIDE 98 mmol/L (98-107); CREATININE 0.76 mg/dL (0.60-1.30); GLOMERULAR FILTR. RATE CALC > 60 mL/min (>60); GLUCOSE,RANDOM 195 mg/dL (70-110); SODIUM SERUM 132 mmol/L (136-145); UREA NITROGEN, BLOOD 11 mg/dL (7-18)
[2017-09-23 20:20] LABS: ALANINE AMINOTRANSFERASE 31 U/L (12-78); ALBUMIN 3.6 g/dL (3.4-5.0); ALKALINE PHOSPHATASE 120 U/L (46-116); ASPARTATE AMINOTRANSFERASE 16 U/L (15-37); BILIRUBIN,TOTAL 0.2 mg/dL (0.1-1.0); TOTAL PROTEIN, SERUM 7.9 g/dL (6.4-8.2)
[2017-09-23] MEDS ORDERED: OLANZapine 5 MG RAPDIS TABLET PO PRN (22:30)
[2017-09-23 23:00] LABS: CHOL/HDL RATIO 4.2 (4.2-7.3); CHOLESTEROL 220 mg/dL (131-200); FREE T4 (FREE THYROXINE) 0.66 ng/dL (0.76-1.46); HDL CHOLESTEROL 52 mg/dL (40-60); LDL CHOL (CALC.) 132 mg/dL (0-130); TRIGLYCERIDES 181 mg/dL (15-150)
[2017-09-24] MEDS: ZOLPIDEM TARTRATE 10 MG TABLET PO PRN (03:00)
[2017-09-24 03:07] VITALS: BP 146/87
[2017-09-24 05:44] LABS: GLUCOMETER DEV NAME(LOC) 3EI B; GLUCOSE,POINT OF CARE 187 MG/DL (70-110)
[2017-09-24] MEDS ORDERED: DEXTROSE 50%-WATER 25 GM/50 ML SYRINGE IVP PRN (07:00)
[2017-09-24] MEDS: INSULIN LISPRO 100 UNITS/ML SQ PRN ×3 (07:35→21:23)
[2017-09-24 08:05] VITALS: BP 147/80
[2017-09-24] MEDS ORDERED: METOPROLOL TARTRATE 25 MG TABLET PO SCH (09:00)
[2017-09-24] MEDS: CloNIDine HCL 0.2 MG TABLET PO SCH (10:36)
[2017-09-24] MEDS: METOPROLOL SUCCINATE 25 MG ER TABLET PO SCH (10:37)
[2017-09-24] MEDS ORDERED: LOPERAMIDE HCL 2 MG CAPSULE PO PRN (12:30)
[2017-09-24] MEDS ORDERED: GuaiFENesin/D-METHORPHAN [SUGAR-FREE] 200-20MG/10 ML SYRUP UDCUP PO PRN (12:30)
[2017-09-24] MEDS ORDERED: MAGNESIUM HYDROXIDE SUSPENSION 30 ML UDCUP PO PRN (12:30)
[2017-09-24] MEDS ORDERED: MAG HYDROX/AL HYDROX/SIMETH ES 30 ML SUSPENSION UDCUP PO PRN (12:30)
[2017-09-24] MEDS ORDERED: PALIPERIDONE PALMITATE 234 MG/1.5 ML SYRINGE IM ONE (12:30)
[2017-09-24] MEDS ORDERED: HydrOXYzine PAMOATE 50 MG CAPSULE PO PRN (12:30)
[2017-09-24] MEDS ORDERED: PALIPERIDONE 1.5 MG ER TABLET PO PRN (12:30)
[2017-09-24] MEDS ORDERED: PROMETHAZINE HCL 25 MG TABLET PO PRN (12:30)
[2017-09-24] MEDS: LORazepam 2 MG TABLET PO PRN (14:23)
[2017-09-24] MEDS: THIAMINE HCL 100 MG TABLET PO SCH (16:14)
[2017-09-24 16:48] VITALS: BP 150/77
[2017-09-24] MEDS: PHENYTOIN SODIUM 100 MG ER CAPSULE PO SCH (20:39)
[2017-09-24] MEDS: PALIPERIDONE 3 MG ER TABLET PO SCH (20:39)
[2017-09-24 21:04] LABS: GLUCOMETER DEV NAME(LOC) 3EI B; GLUCOSE,POINT OF CARE 262 MG/DL (70-110)
[2017-09-25 05:35] VITALS: BP 126/78
[2017-09-25] MEDS: ACETAMINOPHEN 325 MG TABLET PO PRN (05:43)
[2017-09-25 06:14] LABS: GLUCOMETER DEV NAME(LOC) 3EI B; GLUCOSE,POINT OF CARE 224 MG/DL (70-110)
[2017-09-25 06:22] LABS: BAND NEUTROPHILS % (MANUAL) 0 % (0-5)
[2017-09-25 06:28] LABS: HEMATOCRIT 36.5 % (41-53); HEMOGLOBIN 12.8 g/dL (13.5-17.5); MEAN CORPUSCULAR HEMOGLOBIN 30.5 pg (26.0-34.0); MEAN CORPUSCULAR VOLUME 87 fL (80-100); PLATELET COUNT (AUTO) 235 K/uL (150-450); RED BLOOD CELL COUNT(AUTO) 4.18 MIL/uL (4.50-5.90)
[2017-09-25 06:50] LABS: ANION GAP 10 mmol/L (8-16); CARBON DIOXIDE 26 mmol/L (22-29); CHLORIDE 98 mmol/L (98-107); CREATININE 0.88 mg/dL (0.60-1.30); GLOMERULAR FILTR. RATE CALC > 60 mL/min (>60); GLUCOSE,RANDOM 261 mg/dL (70-110); PHENYTOIN (DILANTIN) 5.6 mcg/mL (10.0-20.0); PHOSPHORUS 3.5 mg/dL (2.5-4.9); POTASSIUM 4.4 mmol/L (3.5-5.1); SODIUM SERUM 134 mmol/L (136-145); UREA NITROGEN, BLOOD 14 mg/dL (7-18)
[2017-09-25] MEDS: INSULIN LISPRO 100 UNITS/ML SQ PRN ×4 (07:01→21:22)
[2017-09-25 07:56] LABS: EOSINOPHILS % (MANUAL) 2 % (1-6); LYMPHOCYTES % (MANUAL) 24 % (22-44); MONOCYTES % (MANUAL) 7 % (2-9); SEGMENTED NEUTROPHILS % 67 % (40-70)
[2017-09-25 08:05] VITALS: BP 137/78
[2017-09-25] MEDS: METOPROLOL SUCCINATE 25 MG ER TABLET PO SCH (09:50)
[2017-09-25] MEDS: FOLIC ACID 1 MG TABLET PO SCH (09:50)
[2017-09-25] MEDS: MULTIVITAMINS WITH MINERALS, THERAPEUTIC TABLET PO SCH (09:50)
[2017-09-25] MEDS: THIAMINE HCL 100 MG TABLET PO SCH ×2 (09:50→16:24)
[2017-09-25] MEDS: OMEGA-3/DHA/EPA/FISH OIL 1,000 MG CAPSULE PO SCH (09:51)
[2017-09-25] MEDS: CloNIDine HCL 0.2 MG TABLET PO SCH (09:51)
[2017-09-25] MEDS: LORazepam 2 MG TABLET PO PRN (11:20)
[2017-09-25 11:49] LABS: GLUCOMETER DEV NAME(LOC) 3EI B; GLUCOSE,POINT OF CARE 188 MG/DL (70-110)
[2017-09-25 16:28] LABS: GLUCOMETER DEV NAME(LOC) 3EI B; GLUCOSE,POINT OF CARE 198 MG/DL (70-110)
[2017-09-25 19:20] VITALS: BP 149/97
[2017-09-25] MEDS ORDERED: PHENYTOIN SODIUM 100 MG ER CAPSULE PO SCH (21:00)
[2017-09-25] MEDS: PALIPERIDONE 3 MG ER TABLET PO SCH (21:16)
[2017-09-25] MEDS: PHENYTOIN SODIUM 100 MG ER CAPSULE PO SCH (21:16)
[2017-09-25 21:18] LABS: GLUCOMETER DEV NAME(LOC) 3EI B; GLUCOSE,POINT OF CARE 172 MG/DL (70-110)
[2017-09-26] MEDS: LORazepam 2 MG TABLET PO PRN (04:13)
[2017-09-26 05:39] LABS: GLUCOMETER DEV NAME(LOC) 3EI B; GLUCOSE,POINT OF CARE 156 MG/DL (70-110)
[2017-09-26 06:02] VITALS: BP 126/69
[2017-09-26] MEDS: INSULIN LISPRO 100 UNITS/ML SQ PRN ×4 (06:57→21:00)
[2017-09-26] MEDS: THIAMINE HCL 100 MG TABLET PO SCH ×2 (08:19→16:36)
[2017-09-26] MEDS: METOPROLOL SUCCINATE 25 MG ER TABLET PO SCH (08:19)
[2017-09-26] MEDS: CloNIDine HCL 0.2 MG TABLET PO SCH (08:19)
[2017-09-26] MEDS: OMEGA-3/DHA/EPA/FISH OIL 1,000 MG CAPSULE PO SCH (08:19)
[2017-09-26] MEDS: FOLIC ACID 1 MG TABLET PO SCH (08:19)
[2017-09-26] MEDS: MULTIVITAMINS WITH MINERALS, THERAPEUTIC TABLET PO SCH (08:19)
[2017-09-26 08:52] VITALS: BP 132/89
[2017-09-26 11:23] LABS: GLUCOMETER DEV NAME(LOC) 3EI B; GLUCOSE,POINT OF CARE 173 MG/DL (70-110)
[2017-09-26 16:59] LABS: GLUCOMETER DEV NAME(LOC) 3EI B; GLUCOSE,POINT OF CARE 151 MG/DL (70-110)
[2017-09-26 17:19] VITALS: BP 127/74
[2017-09-26] MEDS: PALIPERIDONE 3 MG ER TABLET PO SCH (20:37)
[2017-09-26] MEDS: PHENYTOIN SODIUM 100 MG ER CAPSULE PO SCH (20:37)
[2017-09-26 21:04] LABS: GLUCOMETER DEV NAME(LOC) 3EI B; GLUCOSE,POINT OF CARE 208 MG/DL (70-110)
[2017-09-26] MEDS: ZOLPIDEM TARTRATE 10 MG TABLET PO PRN (22:22)
[2017-09-27 05:39] LABS: GLUCOMETER DEV NAME(LOC) 3EI B; GLUCOSE,POINT OF CARE 157 MG/DL (70-110)
[2017-09-27] MEDS: INSULIN LISPRO 100 UNITS/ML SQ PRN ×3 (07:09→21:04)
[2017-09-27] MEDS: LORazepam 2 MG TABLET PO PRN (08:16)
[2017-09-27 08:47] VITALS: BP 132/89
[2017-09-27] MEDS: CloNIDine HCL 0.2 MG TABLET PO SCH (09:01)
[2017-09-27] MEDS: OMEGA-3/DHA/EPA/FISH OIL 1,000 MG CAPSULE PO SCH (09:01)
[2017-09-27] MEDS: THIAMINE HCL 100 MG TABLET PO SCH ×2 (09:01→17:06)
[2017-09-27] MEDS: MULTIVITAMINS WITH MINERALS, THERAPEUTIC TABLET PO SCH (09:01)
[2017-09-27] MEDS: METOPROLOL SUCCINATE 25 MG ER TABLET PO SCH (09:02)
[2017-09-27] MEDS: FOLIC ACID 1 MG TABLET PO SCH (09:02)
[2017-09-27 11:23] LABS: GLUCOMETER DEV NAME(LOC) 3EI B; GLUCOSE,POINT OF CARE 154 MG/DL (70-110)
[2017-09-27] MEDS: NICOTINE 7 MG/24 HOUR PATCH TD SCH (14:29)
[2017-09-27 16:52] VITALS: BP 125/70
[2017-09-27 17:34] LABS: GLUCOMETER DEV NAME(LOC) 3EI B; GLUCOSE,POINT OF CARE 187 MG/DL (70-110)
[2017-09-27] MEDS: PHENYTOIN SODIUM 100 MG ER CAPSULE PO SCH (21:01)
[2017-09-27 21:13] LABS: GLUCOMETER DEV NAME(LOC) 3EI B; GLUCOSE,POINT OF CARE 169 MG/DL (70-110)
[2017-09-28 05:44] LABS: GLUCOMETER DEV NAME(LOC) 3EI B; GLUCOSE,POINT OF CARE 157 MG/DL (70-110)
[2017-09-28 06:21] VITALS: BP 128/83
[2017-09-28] MEDS: INSULIN LISPRO 100 UNITS/ML SQ PRN ×4 (06:52→21:19)
[2017-09-28] MEDS ORDERED: PALIPERIDONE PALMITATE 156 MG/ML SYRINGE IM ONE (09:00)
[2017-09-28 09:36] VITALS: BP 165/93
[2017-09-28] MEDS: MULTIVITAMINS WITH MINERALS, THERAPEUTIC TABLET PO SCH (09:47)
[2017-09-28] MEDS: THIAMINE HCL 100 MG TABLET PO SCH ×2 (09:47→16:12)
[2017-09-28] MEDS: CloNIDine HCL 0.2 MG TABLET PO SCH (09:47)
[2017-09-28] MEDS: FOLIC ACID 1 MG TABLET PO SCH (09:47)
[2017-09-28] MEDS: NICOTINE 7 MG/24 HOUR PATCH TD SCH (09:48)
[2017-09-28] MEDS: METOPROLOL SUCCINATE 25 MG ER TABLET PO SCH (09:48)
[2017-09-28] MEDS: LORazepam 2 MG TABLET PO PRN ×3 (10:55→21:16)
[2017-09-28 11:19] LABS: GLUCOMETER DEV NAME(LOC) 3EI B; GLUCOSE,POINT OF CARE 189 MG/DL (70-110)
[2017-09-28 16:38] LABS: GLUCOMETER DEV NAME(LOC) 3EI B; GLUCOSE,POINT OF CARE 246 MG/DL (70-110)
[2017-09-28] MEDS ORDERED: PHENY100 PO (18:00)
[2017-09-28] MEDS ORDERED: NALT50TA PO (18:00)
[2017-09-28] MEDS ORDERED: PALI156D IM (18:00)
[2017-09-28 20:17] VITALS: BP 151/77
[2017-09-28] MEDS: PHENYTOIN SODIUM 100 MG ER CAPSULE PO SCH (21:18)
[2017-09-28 22:32] LABS: GLUCOMETER DEV NAME(LOC) 3EC; GLUCOSE,POINT OF CARE 209 MG/DL (70-110)
[2017-09-29 00:05] VITALS: BP 152/90
[2017-09-29] MEDS: ACETAMINOPHEN 325 MG TABLET PO PRN (00:12)
[2017-09-29 06:29] LABS: GLUCOMETER DEV NAME(LOC) 3EX 1; GLUCOSE,POINT OF CARE 163 MG/DL (70-110)
[2017-09-29] MEDS: INSULIN LISPRO 100 UNITS/ML SQ PRN ×2 (07:06→11:58)
[2017-09-29 08:47] VITALS: BP 150/82
[2017-09-29] MEDS: METOPROLOL SUCCINATE 25 MG ER TABLET PO SCH (09:00)
[2017-09-29] MEDS: THIAMINE HCL 100 MG TABLET PO SCH (09:00)
[2017-09-29] MEDS: MULTIVITAMINS WITH MINERALS, THERAPEUTIC TABLET PO SCH (09:00)
[2017-09-29] MEDS: CloNIDine HCL 0.2 MG TABLET PO SCH (09:01)
[2017-09-29] MEDS: FOLIC ACID 1 MG TABLET PO SCH (09:01)
[2017-09-29] MEDS: LORazepam 2 MG TABLET PO PRN (09:02)
[2017-09-29] MEDS: NICOTINE 7 MG/24 HOUR PATCH TD SCH (09:04)
[2017-09-29 11:33] LABS: GLUCOMETER DEV NAME(LOC) 3EC; GLUCOSE,POINT OF CARE 108 MG/DL (70-110)
== END 2017-09-29 16:15 | disposition home or self-care (01) | DRG 885 ==
LOC: EMS 19:22 → 3EI 09-24 01:30
PROVIDERS: ADMIT Psychiatry & Neurology Psychiatry; ATTEND Psychiatry & Neurology Psychiatry
DX: F25.9 Schizoaffective disorder, unspecified (principal); D64.9 Anemia, unspecified; D72.829 Elevated white blood cell count, unspecified; E03.9 Hypothyroidism, unspecified; E11.65 Type 2 diabetes mellitus with hyperglycemia; E66.3 Overweight; E78.00 Pure hypercholesterolemia, unspecified; E78.5 Hyperlipidemia, unspecified; F43.10 Post-traumatic stress disorder, unspecified; G40.909 Epilepsy, unspecified, not intractable, without status epilepticus; I10 Essential (primary) hypertension; J44.9 Chronic obstructive pulmonary disease, unspecified; K21.9 Gastro-esophageal reflux disease without esophagitis; Z81.8 Family history of other mental and behavioral disorders; Z86.73 Personal history of transient ischemic attack (TIA), and cerebral infarction without residual deficits; Z87.891 Personal history of nicotine dependence; Z91.19 Patient's noncompliance with other medical treatment and regimen; Z88.6 Allergy status to analgesic agent; Z88.8 Allergy status to other drugs, medicaments and biological substances
CPT/HCPCS: 82306; 83036; 83735; 84100; 84439; 84443; 85007; 87081; 93005; 99285; G0480

== ENCOUNTER 2018-04-16 16:27 | Inpatient (IN) | payer MEDICAID, MEDICARE ==
[~2018-04-16] VITALS: Ht 172.7 cm; Wt 93.2 kg
[~2018-04-16 16:27] MED LIST changes: -CLOP75 PO; -MIRT15 PO; -MULT-1239 PO; -NALT50TA6 PO; +PALI156D IM; -QUET300T18 PO; -QUET300T2 PO; -THIA100T67 PO
[2018-04-16 21:26] LABS: BASOPHILS % (AUTO) 0.6 % (0.0-2.0); EOSINOPHILS % (AUTO) 0.4 % (1.0-6.0); HEMATOCRIT 37.9 % (41-53); HEMOGLOBIN 12.8 g/dL (13.5-17.5); LYMPHOCYTES # (AUTO) 1.7 K/uL (1.0-4.8); LYMPHOCYTES % (AUTO) 17.9 % (22.0-44.0); MEAN CORPUSCULAR HEMOGLOBIN 29.3 pg (26.0-34.0); MEAN CORPUSCULAR HGB CONC 33.9 G/dL (31.0-37.0); MEAN CORPUSCULAR VOLUME 87 fL (80-100); MONOCYTES # (AUTO) 0.9 K/uL (0.1-1.0); MONOCYTES % (AUTO) 9.2 % (2.0-9.0); NEUTROPHILS # (AUTO) 6.8 K/uL (1.8-7.7); NEUTROPHILS % (AUTO) 71.9 % (40.0-70.0); PLATELET COUNT (AUTO) 272 K/uL (150-450); RED BLOOD CELL COUNT(AUTO) 4.38 MIL/uL (4.50-5.90); RED CELL DISTRIBUTION WIDTH 14.9 % (11.5-14.5)
[2018-04-16 21:35] LABS: ANION GAP 11 mmol/L (8-16); CALCIUM, TOTAL 9.3 mg/dL (8.8-10.5); CARBON DIOXIDE 25 mmol/L (22-29); CHLORIDE 97 mmol/L (98-107); GLOMERULAR FILTR. RATE CALC > 60 mL/min (>60); GLUCOSE,RANDOM 156 mg/dL (70-110); POTASSIUM 3.9 mmol/L (3.5-5.1); SODIUM SERUM 133 mmol/L (136-145); UREA NITROGEN, BLOOD 19 mg/dL (7-18)
[2018-04-16 21:41] LABS: ALANINE AMINOTRANSFERASE 40 U/L (12-78); ALBUMIN 3.8 g/dL (3.4-5.0); ALKALINE PHOSPHATASE 82 U/L (46-116); ASPARTATE AMINOTRANSFERASE 40 U/L (15-37); BILIRUBIN,TOTAL 0.5 mg/dL (0.1-1.0); TOTAL PROTEIN, SERUM 7.2 g/dL (6.4-8.2)
[2018-04-16] MEDS ORDERED: LORazepam 2 MG TABLET PO ONE (21:45)
[2018-04-16] MEDS ORDERED: DiphenhydrAMINE HCL 25 MG CAPSULE PO ONE (21:45)
[2018-04-16] MEDS ORDERED: OLANZapine 5 MG TABLET PO ONE (21:45)
[2018-04-16 22:05] LABS: PHENYTOIN (DILANTIN) < 0.5 mcg/mL (10.0-20.0)
[2018-04-16] MEDS ORDERED: PHENYTOIN SODIUM 100 MG ER CAPSULE PO ONE (22:45)
[2018-04-16 22:47] LABS: AMPHET/METH SCREEN,URINE NEGATIVE (NEGATIVE); BARBITURATE SCREEN, URINE NEGATIVE (NEGATIVE); BENZODIAZEPINES SCREEN,URINE NEGATIVE (NEGATIVE); CANNABINOID SCREEN,URINE NEGATIVE (NEGATIVE); COCAINE SCREEN,URINE NEGATIVE (NEGATIVE); METHADONE SCREEN, URINE NEGATIVE (NEGATIVE); OPIATE SCREEN,URINE NEGATIVE (NEGATIVE)
[2018-04-16 22:48] LABS: PHENCYCLIDINE SCREEN,URINE NEGATIVE (NEGATIVE)
[2018-04-16] MEDS ORDERED: QUEtiapine FUMARATE 100 MG TABLET PO PRN (23:30)
[2018-04-16] MEDS ORDERED: LORazepam 2 MG TABLET PO PRN (23:30)
[2018-04-16] MEDS ORDERED: ZOLPIDEM TARTRATE 10 MG TABLET PO PRN (23:30)
[2018-04-16 23:45] LABS: APPEARANCE,URINE CLEAR (CLEAR); BILIRUBIN,URINE NEGATIVE (NEGATIVE); GLUCOSE, URINE (UA) NEGATIVE (NEGATIVE); KETONES,URINE NEGATIVE (NEGATIVE); LEUKOCYTE ESTERASE ,URINE NEGATIVE (NEGATIVE); NITRATE,URINE NEGATIVE (NEGATIVE); OCCULT BLOOD,URINE NEGATIVE (NEGATIVE); PH,URINE 6.5 (5.0-8.0); PROTEIN,URINE NEGATIVE (NEGATIVE); UROBILINOGEN,URINE 0.2 mg/dL (<=1.0)
[2018-04-17 00:05] LABS: CHOL/HDL RATIO 3.6 (4.2-7.3); CHOLESTEROL 197 mg/dL (131-200); FREE T4 (FREE THYROXINE) 0.78 ng/dL (0.76-1.46); HDL CHOLESTEROL 55 mg/dL (40-60); LDL CHOL (CALC.) 122 mg/dL (0-130); THYROID STIMULATING HORMONE 1.68 uIU/mL (0.36-3.74); TRIGLYCERIDES 101 mg/dL (15-150)
[2018-04-17 01:33] VITALS: BP 151/89
[2018-04-17 10:04] VITALS: BP 132/82
[2018-04-17] MEDS ORDERED: ALBUTEROL SULFATE HFA 90 MCG/PUFF 8 GM INHALER IH PRN (10:30)
[2018-04-17] MEDS ORDERED: BACITRACIN 28.4 GM OINTMENT TP PRN (10:30)
[2018-04-17] MEDS ORDERED: DEXTROSE 50%-WATER 25 GM/50 ML SYRINGE IVP PRN (10:30)
[2018-04-17] MEDS ORDERED: BENZOCAINE/MENTHOL LOZENGE MM PRN (10:30)
[2018-04-17] MEDS ORDERED: MAG HYDROX/AL HYDROX/SIMETH ES 30 ML SUSPENSION UDCUP PO PRN (10:30)
[2018-04-17] MEDS ORDERED: LOPERAMIDE HCL 2 MG CAPSULE PO PRN (10:30)
[2018-04-17] MEDS ORDERED: ONDANSETRON HCL 4 MG TABLET PO PRN (10:30)
[2018-04-17] MEDS ORDERED: PETROLATUM,WHITE 71 GM JELLY TP PRN (10:30)
[2018-04-17] MEDS ORDERED: MAGNESIUM HYDROXIDE SUSPENSION 30 ML UDCUP PO PRN (10:30)
[2018-04-17 11:29] LABS: GLUCOMETER DEV NAME(LOC) 3E.I; GLUCOSE,POINT OF CARE 167 MG/DL (70-110)
[2018-04-17] MEDS: INSULIN LISPRO 100 UNITS/ML SQ PRN (11:36)
[2018-04-17] MEDS: SODIUM CHLORIDE 1 GM TABLET PO SCH ×2 (11:53→17:01)
[2018-04-17 18:45] VITALS: BP 130/90
[2018-04-17 20:14] LABS: GLUCOMETER DEV NAME(LOC) 3E.I; GLUCOSE,POINT OF CARE 127 MG/DL (70-110)
[2018-04-17] MEDS ORDERED: RisperiDONE 2 MG TABLET PO SCH (21:00)
[2018-04-17] MEDS: PHENYTOIN SODIUM 100 MG ER CAPSULE PO SCH (21:00)
[2018-04-18] MEDS ORDERED: CloNIDine HCL 0.1 MG TABLET PO PRN (01:30)
[2018-04-18 01:45] VITALS: BP 182/117
[2018-04-18 02:40] VITALS: BP 171/109
[2018-04-18 06:15] LABS: GLUCOMETER DEV NAME(LOC) 3EX.; GLUCOSE,POINT OF CARE 127 MG/DL (70-110)
[2018-04-18 06:56] LABS: BAND NEUTROPHILS % (MANUAL) 0 % (0-5)
[2018-04-18 06:57] LABS: HEMATOCRIT 40.7 % (41-53); HEMOGLOBIN 13.7 g/dL (13.5-17.5); MEAN CORPUSCULAR HGB CONC 33.7 G/dL (31.0-37.0); MEAN CORPUSCULAR VOLUME 89 fL (80-100); PLATELET COUNT (AUTO) 281 K/uL (150-450); RED BLOOD CELL COUNT(AUTO) 4.57 MIL/uL (4.50-5.90); RED CELL DISTRIBUTION WIDTH 15.3 % (11.5-14.5)
[2018-04-18 07:28] LABS: ANION GAP 9 mmol/L (8-16); CARBON DIOXIDE 25 mmol/L (22-29); CHLORIDE 98 mmol/L (98-107); CREATININE 1.02 mg/dL (0.60-1.30); GLOMERULAR FILTR. RATE CALC > 60 mL/min (>60); GLUCOSE,RANDOM 180 mg/dL (70-110); PHOSPHORUS 3.4 mg/dL (2.5-4.9); POTASSIUM 4.1 mmol/L (3.5-5.1); SODIUM SERUM 132 mmol/L (136-145); UREA NITROGEN, BLOOD 17 mg/dL (7-18)
[2018-04-18 07:29] LABS: % IRON SATURATION 23.7 % (30-44); IRON, SERUM 99 mcg/dL (50-175); TOTAL IRON BINDING CAPACITY 417 mcg/dL (250-450)
[2018-04-18] MEDS: DOCUSATE SODIUM 100 MG CAPSULE PO SCH (08:08)
[2018-04-18] MEDS: NICOTINE 21 MG/24 HOUR PATCH TD SCH (08:09)
[2018-04-18] MEDS: SODIUM CHLORIDE 1 GM TABLET PO SCH (08:09)
[2018-04-18] MEDS: OMEPRAZOLE 20 MG CAPSULE PO SCH (08:10)
[2018-04-18] MEDS ORDERED: CloNIDine HCL 0.2 MG TABLET PO SCH (09:00)
[2018-04-18] MEDS ORDERED: METOPROLOL SUCCINATE 25 MG ER TABLET PO SCH (09:00)
[2018-04-18 09:10] VITALS: BP 153/92
[2018-04-18 10:32] LABS: LYMPHOCYTES % (MANUAL) 23 % (22-44); MONOCYTES % (MANUAL) 3 % (2-9); SEGMENTED NEUTROPHILS % 74 % (40-70)
[2018-04-18 11:34] LABS: GLUCOMETER DEV NAME(LOC) 3E.I; GLUCOSE,POINT OF CARE 134 MG/DL (70-110)
[2018-04-18] MEDS: METOPROLOL TARTRATE 50 MG TABLET PO SCH ×2 (12:17→16:43)
[2018-04-18] MEDS: LISINOPRIL 20 MG TABLET PO SCH (12:17)
[2018-04-18 16:54] LABS: GLUCOMETER DEV NAME(LOC) 3E.I; GLUCOSE,POINT OF CARE 168 MG/DL (70-110)
[2018-04-18] MEDS: INSULIN LISPRO 100 UNITS/ML SQ PRN (16:59)
[2018-04-18] MEDS: MetFORMIN HCL 500 MG TABLET PO SCH (17:11)
[2018-04-18] MEDS ORDERED: PALIPERIDONE PALMITATE 234 MG/1.5 ML SYRINGE IM ONE (17:15)
[2018-04-18 18:56] VITALS: BP 163/103
[2018-04-18] MEDS: PHENYTOIN SODIUM 100 MG ER CAPSULE PO SCH (20:39)
[2018-04-18 20:54] LABS: GLUCOMETER DEV NAME(LOC) 3E.I; GLUCOSE,POINT OF CARE 112 MG/DL (70-110)
[2018-04-18] MEDS ORDERED: PALIPERIDONE 3 MG ER TABLET PO SCH (21:00)
[2018-04-19] MEDS: PALIPERIDONE 1.5 MG ER TABLET PO PRN ×2 (00:03→10:02)
[2018-04-19 00:04] VITALS: BP 153/106
[2018-04-19 06:24] LABS: GLUCOMETER DEV NAME(LOC) 3EX.; GLUCOSE,POINT OF CARE 158 MG/DL (70-110)
[2018-04-19] MEDS: MetFORMIN HCL 500 MG TABLET PO SCH ×2 (06:36→17:16)
[2018-04-19] MEDS: INSULIN LISPRO 100 UNITS/ML SQ PRN (06:48)
[2018-04-19] MEDS: LISINOPRIL 20 MG TABLET PO SCH (07:57)
[2018-04-19] MEDS: DOCUSATE SODIUM 100 MG CAPSULE PO SCH (07:57)
[2018-04-19] MEDS: OMEPRAZOLE 20 MG CAPSULE PO SCH (07:57)
[2018-04-19] MEDS: NICOTINE 21 MG/24 HOUR PATCH TD SCH (07:58)
[2018-04-19] MEDS: METOPROLOL TARTRATE 50 MG TABLET PO SCH ×2 (07:58→16:33)
[2018-04-19 09:15] VITALS: BP 143/93
[2018-04-19 11:44] LABS: GLUCOMETER DEV NAME(LOC) 3E.I; GLUCOSE,POINT OF CARE 112 MG/DL (70-110)
[2018-04-19 16:06] VITALS: BP 94/56
[2018-04-19 16:39] LABS: GLUCOMETER DEV NAME(LOC) 3E.I; GLUCOSE,POINT OF CARE 125 MG/DL (70-110)
[2018-04-19 17:41] VITALS: BP 125/68
[2018-04-19] MEDS: PHENYTOIN SODIUM 100 MG ER CAPSULE PO SCH (20:28)
[2018-04-19 21:33] LABS: GLUCOMETER DEV NAME(LOC) 3E.I; GLUCOSE,POINT OF CARE 110 MG/DL (70-110)
[2018-04-20 04:48] VITALS: BP 115/79
[2018-04-20 05:45] LABS: GLUCOMETER DEV NAME(LOC) 3EX.; GLUCOSE,POINT OF CARE 133 MG/DL (70-110)
[2018-04-20] MEDS: MetFORMIN HCL 500 MG TABLET PO SCH ×2 (06:45→17:41)
[2018-04-20 08:10] VITALS: BP 126/64
[2018-04-20] MEDS: OMEPRAZOLE 20 MG CAPSULE PO SCH (08:33)
[2018-04-20] MEDS: DOCUSATE SODIUM 100 MG CAPSULE PO SCH (08:33)
[2018-04-20] MEDS: METOPROLOL TARTRATE 50 MG TABLET PO SCH ×2 (08:33→17:42)
[2018-04-20] MEDS: NICOTINE 21 MG/24 HOUR PATCH TD SCH (08:33)
[2018-04-20] MEDS: LISINOPRIL 20 MG TABLET PO SCH (08:33)
[2018-04-20 11:34] LABS: GLUCOMETER DEV NAME(LOC) 3E.I; GLUCOSE,POINT OF CARE 125 MG/DL (70-110)
[2018-04-20] MEDS: PALIPERIDONE 1.5 MG ER TABLET PO PRN (16:30)
[2018-04-20 16:34] LABS: GLUCOMETER DEV NAME(LOC) 3E.I; GLUCOSE,POINT OF CARE 122 MG/DL (70-110)
[2018-04-20 17:06] VITALS: BP 123/62
[2018-04-20] MEDS: PHENYTOIN SODIUM 100 MG ER CAPSULE PO SCH (21:06)
[2018-04-21] MEDS: MetFORMIN HCL 500 MG TABLET PO SCH ×2 (06:46→18:26)
[2018-04-21 08:03] VITALS: BP 151/81
[2018-04-21] MEDS: LISINOPRIL 20 MG TABLET PO SCH (08:26)
[2018-04-21] MEDS: OMEPRAZOLE 20 MG CAPSULE PO SCH (08:26)
[2018-04-21] MEDS: METOPROLOL TARTRATE 50 MG TABLET PO SCH ×2 (08:26→16:57)
[2018-04-21] MEDS: DOCUSATE SODIUM 100 MG CAPSULE PO SCH (08:26)
[2018-04-21] MEDS: NICOTINE 21 MG/24 HOUR PATCH TD SCH (08:27)
[2018-04-21 11:19] LABS: GLUCOMETER DEV NAME(LOC) 3E.I; GLUCOSE,POINT OF CARE 156 MG/DL (70-110)
[2018-04-21] MEDS: INSULIN LISPRO 100 UNITS/ML SQ PRN ×3 (11:29→21:47)
[2018-04-21] MEDS: PALIPERIDONE 1.5 MG ER TABLET PO PRN ×2 (15:45→20:19)
[2018-04-21 16:34] LABS: GLUCOMETER DEV NAME(LOC) 3E.I; GLUCOSE,POINT OF CARE 161 MG/DL (70-110)
[2018-04-21 17:16] VITALS: BP 137/69
[2018-04-21] MEDS: PHENYTOIN SODIUM 100 MG ER CAPSULE PO SCH (20:17)
[2018-04-21 20:29] LABS: GLUCOMETER DEV NAME(LOC) 3E.I; GLUCOSE,POINT OF CARE 151 MG/DL (70-110)
[2018-04-22 04:00] VITALS: BP 124/72
[2018-04-22 05:50] LABS: GLUCOMETER DEV NAME(LOC) 3EX.; GLUCOSE,POINT OF CARE 161 MG/DL (70-110)
[2018-04-22] MEDS: INSULIN LISPRO 100 UNITS/ML SQ PRN ×2 (06:26→17:22)
[2018-04-22] MEDS: MetFORMIN HCL 500 MG TABLET PO SCH ×2 (06:45→16:53)
[2018-04-22] MEDS: DOCUSATE SODIUM 100 MG CAPSULE PO SCH (08:36)
[2018-04-22] MEDS: METOPROLOL TARTRATE 50 MG TABLET PO SCH ×2 (08:36→16:52)
[2018-04-22] MEDS: LISINOPRIL 20 MG TABLET PO SCH (08:36)
[2018-04-22] MEDS: OMEPRAZOLE 20 MG CAPSULE PO SCH (08:37)
[2018-04-22] MEDS: NICOTINE 21 MG/24 HOUR PATCH TD SCH (08:41)
[2018-04-22] MEDS ORDERED: PALIPERIDONE PALMITATE 156 MG/ML SYRINGE IM ONE (09:00)
[2018-04-22 09:02] VITALS: BP 118/75
[2018-04-22 10:59] LABS: GLUCOMETER DEV NAME(LOC) 3E.I; GLUCOSE,POINT OF CARE 129 MG/DL (70-110)
[2018-04-22 16:44] LABS: GLUCOMETER DEV NAME(LOC) 3E.I; GLUCOSE,POINT OF CARE 183 MG/DL (70-110)
[2018-04-22] MEDS: PHENYTOIN SODIUM 100 MG ER CAPSULE PO SCH (20:41)
[2018-04-22 20:59] LABS: GLUCOMETER DEV NAME(LOC) 3E.I; GLUCOSE,POINT OF CARE 124 MG/DL (70-110)
[2018-04-22 22:51] VITALS: BP 123/76
[2018-04-23 00:05] VITALS: BP 131/71
[2018-04-23] MEDS: ACETAMINOPHEN 325 MG TABLET PO PRN (00:11)
[2018-04-23 05:39] LABS: GLUCOMETER DEV NAME(LOC) 3EX.; GLUCOSE,POINT OF CARE 128 MG/DL (70-110)
[2018-04-23] MEDS: MetFORMIN HCL 500 MG TABLET PO SCH ×2 (06:40→16:27)
[2018-04-23] MEDS: LISINOPRIL 20 MG TABLET PO SCH (08:28)
[2018-04-23] MEDS: METOPROLOL TARTRATE 50 MG TABLET PO SCH ×2 (08:28→16:27)
[2018-04-23] MEDS: OMEPRAZOLE 20 MG CAPSULE PO SCH (08:28)
[2018-04-23] MEDS: DOCUSATE SODIUM 100 MG CAPSULE PO SCH (08:28)
[2018-04-23] MEDS: NICOTINE 21 MG/24 HOUR PATCH TD SCH (08:28)
[2018-04-23 11:19] LABS: GLUCOMETER DEV NAME(LOC) 3E.I; GLUCOSE,POINT OF CARE 136 MG/DL (70-110)
[2018-04-23 12:58] VITALS: BP 159/86
[2018-04-23 17:51] VITALS: BP 120/72
[2018-04-23 18:09] LABS: GLUCOMETER DEV NAME(LOC) 3E.I; GLUCOSE,POINT OF CARE 105 MG/DL (70-110)
[2018-04-23] MEDS: PHENYTOIN SODIUM 100 MG ER CAPSULE PO SCH (20:17)
[2018-04-23 20:28] LABS: GLUCOMETER DEV NAME(LOC) 3E.I; GLUCOSE,POINT OF CARE 176 MG/DL (70-110)
[2018-04-23] MEDS: INSULIN LISPRO 100 UNITS/ML SQ PRN (20:28)
[2018-04-24 01:59] LABS: GLUCOMETER DEV NAME(LOC) 3E.I; GLUCOSE,POINT OF CARE 90 MG/DL (70-110)
[2018-04-24 02:14] VITALS: BP 124/83
[2018-04-24 06:09] LABS: GLUCOMETER DEV NAME(LOC) 3EX.; GLUCOSE,POINT OF CARE 115 MG/DL (70-110)
[2018-04-24] MEDS: MetFORMIN HCL 500 MG TABLET PO SCH ×3 (06:35→16:22)
[2018-04-24] MEDS: NICOTINE 21 MG/24 HOUR PATCH TD SCH (08:44)
[2018-04-24] MEDS: DOCUSATE SODIUM 100 MG CAPSULE PO SCH (08:44)
[2018-04-24] MEDS: METOPROLOL TARTRATE 50 MG TABLET PO SCH ×2 (08:44→16:22)
[2018-04-24] MEDS: OMEPRAZOLE 20 MG CAPSULE PO SCH (08:44)
[2018-04-24] MEDS: LISINOPRIL 20 MG TABLET PO SCH (08:44)
[2018-04-24 09:57] VITALS: BP 168/84
[2018-04-24 11:33] LABS: GLUCOMETER DEV NAME(LOC) 3E.I; GLUCOSE,POINT OF CARE 110 MG/DL (70-110)
[2018-04-24 16:00] VITALS: BP 136/79
[2018-04-24 16:34] LABS: GLUCOMETER DEV NAME(LOC) 3E.I; GLUCOSE,POINT OF CARE 102 MG/DL (70-110)
[2018-04-24] MEDS: PHENYTOIN SODIUM 100 MG ER CAPSULE PO SCH (20:25)
[2018-04-24] MEDS: INSULIN LISPRO 100 UNITS/ML SQ PRN (20:37)
[2018-04-24 21:09] LABS: GLUCOMETER DEV NAME(LOC) 3E.I; GLUCOSE,POINT OF CARE 172 MG/DL (70-110)
[2018-04-25 05:50] LABS: GLUCOMETER DEV NAME(LOC) 3E.I; GLUCOSE,POINT OF CARE 151 MG/DL (70-110)
[2018-04-25] MEDS: INSULIN LISPRO 100 UNITS/ML SQ PRN ×2 (06:31→11:30)
[2018-04-25] MEDS: MetFORMIN HCL 500 MG TABLET PO SCH ×2 (06:43→17:20)
[2018-04-25 08:00] VITALS: BP 152/85
[2018-04-25] MEDS: DOCUSATE SODIUM 100 MG CAPSULE PO SCH (09:00)
[2018-04-25] MEDS: LISINOPRIL 20 MG TABLET PO SCH (09:00)
[2018-04-25] MEDS: METOPROLOL TARTRATE 50 MG TABLET PO SCH ×2 (09:00→17:00)
[2018-04-25] MEDS: OMEPRAZOLE 20 MG CAPSULE PO SCH (09:00)
[2018-04-25] MEDS: NICOTINE 21 MG/24 HOUR PATCH TD SCH (09:00)
[2018-04-25 11:19] LABS: GLUCOMETER DEV NAME(LOC) 3EX.; GLUCOSE,POINT OF CARE 173 MG/DL (70-110)
[2018-04-25 16:00] VITALS: BP 102/61
[2018-04-25 17:34] LABS: GLUCOMETER DEV NAME(LOC) 3EX.; GLUCOSE,POINT OF CARE 127 MG/DL (70-110)
[2018-04-25] MEDS: PHENYTOIN SODIUM 100 MG ER CAPSULE PO SCH (21:34)
[2018-04-25 21:54] LABS: GLUCOMETER DEV NAME(LOC) 3EX.; GLUCOSE,POINT OF CARE 126 MG/DL (70-110)
[2018-04-26 05:48] VITALS: BP 145/89
[2018-04-26 06:20] LABS: GLUCOMETER DEV NAME(LOC) 3E.I; GLUCOSE,POINT OF CARE 143 MG/DL (70-110)
[2018-04-26] MEDS: MetFORMIN HCL 500 MG TABLET PO SCH ×2 (06:40→16:04)
[2018-04-26] MEDS: INSULIN LISPRO 100 UNITS/ML SQ PRN ×3 (07:25→20:56)
[2018-04-26] MEDS: LISINOPRIL 20 MG TABLET PO SCH (07:41)
[2018-04-26] MEDS: OMEPRAZOLE 20 MG CAPSULE PO SCH (07:41)
[2018-04-26] MEDS: METOPROLOL TARTRATE 50 MG TABLET PO SCH ×2 (07:41→16:04)
[2018-04-26] MEDS: NICOTINE 21 MG/24 HOUR PATCH TD SCH (07:41)
[2018-04-26] MEDS: DOCUSATE SODIUM 100 MG CAPSULE PO SCH (07:41)
[2018-04-26 09:11] VITALS: BP 139/77
[2018-04-26 11:29] LABS: GLUCOMETER DEV NAME(LOC) 3EX.; GLUCOSE,POINT OF CARE 148 MG/DL (70-110)
[2018-04-26 16:50] VITALS: BP 113/59
[2018-04-26 16:54] LABS: GLUCOMETER DEV NAME(LOC) 3EX.; GLUCOSE,POINT OF CARE 110 MG/DL (70-110)
[2018-04-26] MEDS: PHENYTOIN SODIUM 100 MG ER CAPSULE PO SCH (20:11)
[2018-04-27] MEDS: MetFORMIN HCL 500 MG TABLET PO SCH ×2 (07:11→16:44)
[2018-04-27] MEDS: NICOTINE 21 MG/24 HOUR PATCH TD SCH (07:48)
[2018-04-27] MEDS: OMEPRAZOLE 20 MG CAPSULE PO SCH (07:48)
[2018-04-27] MEDS: LISINOPRIL 20 MG TABLET PO SCH (07:48)
[2018-04-27] MEDS: METOPROLOL TARTRATE 50 MG TABLET PO SCH ×2 (07:50→16:44)
[2018-04-27] MEDS: DOCUSATE SODIUM 100 MG CAPSULE PO SCH (07:50)
[2018-04-27] MEDS: PALIPERIDONE 1.5 MG ER TABLET PO PRN (07:52)
[2018-04-27 08:00] VITALS: BP_SYST 139
[2018-04-27 09:38] LABS: GLUCOMETER DEV NAME(LOC) 3EX.; GLUCOSE,POINT OF CARE 160 MG/DL (70-110)
[2018-04-27 09:50] LABS: GLUCOMETER DEV NAME(LOC) 3E.I; GLUCOSE,POINT OF CARE 123 MG/DL (70-110)
[2018-04-27 11:56] LABS: GLUCOMETER DEV NAME(LOC) 3E.I; GLUCOSE,POINT OF CARE 114 MG/DL (70-110)
[2018-04-27] MEDS ORDERED: NALT50TA PO (13:11)
[2018-04-27] MEDS ORDERED: PHENY100 PO (13:11)
[2018-04-27] MEDS ORDERED: PALI117D IM (13:11)
[2018-04-27 16:30] LABS: GLUCOMETER DEV NAME(LOC) 3EX.; GLUCOSE,POINT OF CARE 127 MG/DL (70-110)
[2018-04-27 17:58] VITALS: BP 129/70
[2018-04-27] MEDS: PHENYTOIN SODIUM 100 MG ER CAPSULE PO SCH (20:59)
[2018-04-27] MEDS: INSULIN LISPRO 100 UNITS/ML SQ PRN (21:12)
[2018-04-27 21:15] LABS: GLUCOMETER DEV NAME(LOC) 3EX.; GLUCOSE,POINT OF CARE 142 MG/DL (70-110)
[2018-04-28 05:56] LABS: GLUCOMETER DEV NAME(LOC) 3E.I; GLUCOSE,POINT OF CARE 113 MG/DL (70-110)
[2018-04-28] MEDS: MetFORMIN HCL 500 MG TABLET PO SCH ×2 (07:14→16:05)
[2018-04-28] MEDS: DOCUSATE SODIUM 100 MG CAPSULE PO SCH (08:20)
[2018-04-28] MEDS: OMEPRAZOLE 20 MG CAPSULE PO SCH (08:20)
[2018-04-28] MEDS: LISINOPRIL 20 MG TABLET PO SCH (08:21)
[2018-04-28] MEDS: NICOTINE 21 MG/24 HOUR PATCH TD SCH (08:22)
[2018-04-28] MEDS: METOPROLOL TARTRATE 50 MG TABLET PO SCH ×2 (09:33→16:05)
[2018-04-28] MEDS: ACETAMINOPHEN 325 MG TABLET PO PRN (10:45)
[2018-04-28 11:26] VITALS: BP 135/64
[2018-04-28 11:29] LABS: GLUCOMETER DEV NAME(LOC) 3EX.; GLUCOSE,POINT OF CARE 108 MG/DL (70-110)
[2018-04-28 17:09] VITALS: BP 121/57
[2018-04-28 19:23] LABS: GLUCOMETER DEV NAME(LOC) 3EX.; GLUCOSE,POINT OF CARE 121 MG/DL (70-110)
[2018-04-28] MEDS: INSULIN LISPRO 100 UNITS/ML SQ PRN (20:13)
[2018-04-28] MEDS: PHENYTOIN SODIUM 100 MG ER CAPSULE PO SCH (20:22)
[2018-04-28 23:03] LABS: GLUCOMETER DEV NAME(LOC) 3EX.; GLUCOSE,POINT OF CARE 143 MG/DL (70-110)
[2018-04-29] MEDS ORDERED: METF-444 PO (06:12)
[2018-04-29] MEDS ORDERED: METO50 PO (06:12)
[2018-04-29] MEDS ORDERED: LISI10TA7 PO (06:13)
[2018-04-29] MEDS ORDERED: OMEP20CA10 PO (06:13)
[2018-04-29 06:19] LABS: GLUCOMETER DEV NAME(LOC) 3E.I; GLUCOSE,POINT OF CARE 127 MG/DL (70-110)
[2018-04-29] MEDS ORDERED: PHENY100 PO (06:32)
[2018-04-29] MEDS ORDERED: PHEN300C6 PO (06:41)
[2018-04-29] MEDS: INSULIN LISPRO 100 UNITS/ML SQ PRN (07:14)
[2018-04-29] MEDS: MetFORMIN HCL 500 MG TABLET PO SCH (07:15)
[2018-04-29 08:01] VITALS: BP 148/73
[2018-04-29] MEDS: METOPROLOL TARTRATE 50 MG TABLET PO SCH (08:06)
[2018-04-29] MEDS: OMEPRAZOLE 20 MG CAPSULE PO SCH (08:06)
[2018-04-29] MEDS: DOCUSATE SODIUM 100 MG CAPSULE PO SCH (08:06)
[2018-04-29] MEDS: LISINOPRIL 20 MG TABLET PO SCH (08:06)
[2018-04-29] MEDS ORDERED: DSS100 PO (08:15)
== END 2018-04-29 09:00 | disposition home or self-care (01) | DRG 885 ==
LOC: EMS 16:28 → 3EX 22:30
PROVIDERS: ADMIT Psychiatry & Neurology Psychiatry; ATTEND Psychiatry & Neurology Psychiatry
DX: F25.0 Schizoaffective disorder, bipolar type (principal); E11.65 Type 2 diabetes mellitus with hyperglycemia; R45.851 Suicidal ideations; F12.90 Cannabis use, unspecified, uncomplicated; D64.9 Anemia, unspecified; E03.9 Hypothyroidism, unspecified; E78.00 Pure hypercholesterolemia, unspecified; E78.5 Hyperlipidemia, unspecified; F43.10 Post-traumatic stress disorder, unspecified; G40.909 Epilepsy, unspecified, not intractable, without status epilepticus; I10 Essential (primary) hypertension; J44.9 Chronic obstructive pulmonary disease, unspecified; K21.9 Gastro-esophageal reflux disease without esophagitis; F17.210 Nicotine dependence, cigarettes, uncomplicated; Z86.73 Personal history of transient ischemic attack (TIA), and cerebral infarction without residual deficits; Z91.14 Patient's other noncompliance with medication regimen; Z91.19 Patient's noncompliance with other medical treatment and regimen; Z88.6 Allergy status to analgesic agent; Z88.8 Allergy status to other drugs, medicaments and biological substances; Z79.899 Other long term (current) drug therapy
CPT/HCPCS: 83036; 83540; 83550; 83735; 84100; 84439; 84443; 85007; 87081; G0378; G0480